=== PATIENT | female | born 1960 | race Caucasian/White ===

== ENCOUNTER → 2020-01-30 11:43 | Outpatient (POV) | payer OTHER, SELFPAY | PROVIDERS: PCP Physician Assistant; Visit Provider Physician Assistant | DX: Z00.00 Encounter for general adult medical examination without abnormal findings (principal) ==

== ENCOUNTER → 2020-03-26 15:58 | Outpatient (POV) | payer OTHER, SELFPAY | PROVIDERS: PCP Nurse Practitioner Family; Visit Provider Dermatology | DX: Z00.00 Encounter for general adult medical examination without abnormal findings (principal) ==

== ENCOUNTER 2020-07-31 11:41 | Observation (INO) | payer OTHER, SELFPAY ==
[2020-07-31] VITALS (9 sets, daily range): BP systolic 143–191; BP diastolic 73–108; PULSE 77–95; RESP 16–20; TEMP 36.4–36.6; O2SAT 93–100; BMI 26.5; BMI 25.7
--- NOTE | 2020-07-31 11:41 | ECG_ITS ---
APPROVED REPORT Exam: Resting ECG HR:95 bpm ECG Measurements Heart Rate 95 AXES MI 182 P 80 QRSd 92 QRS 82 QT 352 T 93 QTc 442 Conclusion Sinus rhythm with occasional premature ventricular complexes Incomplete right bundle branch block Borderline ECG Electronically signed by : Randall Tinsley, 08/05/2020 21:50:56
--- NOTE | 2020-07-31 11:53 | CT_ITS ---
PROCEDURE: CT HEAD/BRAIN WO CON CLINICAL INDICATION: AMS Altered mental status, altered level of consciousness, confusion, disorientation COMPARISON: No exams were available for comparison TECHNIQUE: Axial images obtained. All CT scans at the facility use one or more dose reduction, viz: automated exposure control, ma/kV adjustment per patient size (including targeted exams where dose is matched to indication, i.e. head), or iterative reconstruction technique. FINDINGS: No midline shift, mass effect, intracranial hemorrhage, hydrocephalus, or extra-axial fluid collection is evident. The calvarium has an unremarkable appearance. No mastoid effusion. No sinus air-fluid level. IMPRESSION: No acute intracranial finding Dictated by: Ricky Garcia MD 07/31/2020 12:24 Ricky Garcia MD in [facility] 07/31/2020 12:24
--- NOTE | 2020-07-31 11:53 | PC.NURSE ---
MD at bedside 1141, 12 lead also completed and read by MD at this time.
--- NOTE | 2020-07-31 11:53 | PC.NURSE ---
Radiology taking pt to CT
--- NOTE | 2020-07-31 11:53 | HMH.EDGENADL ---
ED Disposition Clinical Impression: Encephalopathy Accidental drug ingestion Qualifiers: Encounter type: initial encounter Qualified Code(s): T50.901A - Poisoning by unspecified drugs, medicaments and biological substances, accidental (unintentional), initial encounter Disposition: Admitted As Inpatient Condition on Discharge: Fair Referrals: Randall Henry MD [Primary Care Provider] - - Critical Care Critical Care Time: No Attestation: On 07/31/20, the high probability of a clinically significant, sudden or life threatening deterioration of the following system(s) required my full and direct attention, intervention and personal management. The time I documented below is in addition to time spent performing reported procedures but includes the following listed in this critical care notation. Medical Decision Making - Kyle Inquiry Pt receiving controlled substance: Yes Kyle was queried for this patient: No Reason not queried -: Emergent pt cond-no time Risks and benefits of using a controlled substance: were not discussed with pt by me Vital Signs: 07/31/20 11:42 07/31/20 12:12 07/31/20 12:30 Temperature 98 F Temperature Source Oral Pulse Rate [Left Radial] 94 H 92 H 78 Respiratory Rate 20 Blood Pressure [Right Arm] 152/74 H 191/97 H 173/96 H Blood Pressure Mean [Right Arm] 100 128 121 Blood Pressure Source [Right Arm] Automatic Cuff Automatic Cuff Automatic Cuff Blood Pressure Position [Right Arm] Sitting Sitting Sitting 02 Sat by Pulse Oximetry 99 100 95 Oxygen Delivery Method Room Air Room Air Room Air 07/31/20 13:00 Temperature Temperature Source Pulse Rate [Left Radial] 90 Respiratory Rate Blood Pressure [Right Arm] 188/92 H Blood Pressure Mean [Right Arm] 124 Blood Pressure Source [Right Arm] Automatic Cuff Blood Pressure Position [Right Arm] Sitting 02 Sat by Pulse Oximetry 100 Oxygen Delivery Method Room Air - Lab Data Lab Results 07/31/20 11:46: WBC 6.0, RBC 4.31, Hgb 13.6, Hct 42.0, MCV 97.4, MCH 31.6 H, MCHC 32.4, RDW 12.9, Plt Count 351, MPV 7.8, Neut % (Auto) 64.5, Lymph % (Auto) 30.6, [place] % (Auto) 3.6, Eos % (Auto) 0.7, Baso % (Auto) 0.6, Neut # (Auto) 3.8, Lymph # (Auto) 1.8, [place] # (Auto) 0.2, Eos # (Auto) 0.0, Baso # (Auto) 0.0 07/31/20 11:46: PT 11.9 H, INR 1.08 07/31/20 11:46: Sodium 135 L, Potassium 3.4 L, Chloride 102, Carbon Dioxide 23, Anion Gap 13.4, BUN 24 H, Creatinine 0.80, Estimated Creat Clear 63, Estimated GFR 73, Est GFR ( Amer) 88, Glucose 234 H, Calcium 9.4, Total Bilirubin 0.3, AST 32, ALT 19, Alkaline Phosphatase 60, Total Creatine Kinase 203 H, Troponin I < 0.01, Total Protein 7.2, Albumin 4.5, Globulin 2.7, Albumin/Globulin Ratio 1.7, TSH 0.10 L 07/31/20 11:48: Urine Color Yellow, Urine Appearance Clear, Urine pH 5.5, Ur Specific [place] 1.025, Urine Protein Negative, Urine Glucose (UA) Negative, Urine Ketones Trace, Urine Blood Negative, Urine Nitrate Negative, Urine Bilirubin Negative, Urine Urobilinogen 0.2, Ur Leukocyte Esterase Negative, Urine RBC Occasional, Urine WBC Occasional, Ur Squamous Epith Cells Occasional 07/31/20 11:48: Urine Opiates Screen Negative, Urine Methadone Screen Negative, Ur Barbituates Screen Negative, Ur Phencyclidine Scrn Negative, Ur Amphetamines Screen Negative, U Benzodiazepines Scrn Negative, Urine Cocaine Screen Negative, U Marijuana (THC) Screen Positive H Result diagrams: 07/31/20 11:46 07/31/20 11:46 Orders (Tests/Meds): ED MEDICATIONS Generic Name Dose Route Start Last Admin Trade Name Freq PRN Reason Stop Dose Admin Lorazepam 2 mg 07/31/20 13:20 Lorazepam 2mg/Ml Vial IV 08/30/20 13:19 ONCE PRN Seizures Ondansetron HCl 4 mg 07/31/20 13:21 Ondansetron 4mg/2ml Vial IV 08/30/20 13:20 Q4HP PRN Nausea And Vomiting Sodium Chloride 10 ml 07/31/20 13:20 Sodium Chloride 0.9% 10ml Vial IV 08/30/20 13:19 NEEDED PRN to Dilute Lorazepam inj Discontinued Me
--- NOTE | 2020-07-31 12:06 | PC.NURSE ---
Radiology called down and asked for a nurse to come up to radiology with report pt is shaking and vomiting
--- NOTE | 2020-07-31 12:22 | PC.NURSE ---
pt back from radiology
[2020-07-31 12:23] LABS: Chloride 102 mmol/L (98-107); Potassium 3.4 mmoL/L (3.5-5.1); Sodium 135 mmol/L (136-145)
[2020-07-31 12:24] LABS: Basophils % 0.6 % (0.1-2.0); Eosinophils % 0.7 % (0.1-12.0); Hemoglobin 13.6 g/dL (12.2-16.2); Lymphocytes # 1.8 K/mm3 (0.7-4.5); Lymphocytes % 30.6 % (10-50); Mean Corpuscular HGB Conc 32.4 g/dL (31.8-35.4); Mean Corpuscular Hemoglobin 31.6 pg (27.0-31.2); Mean Corpuscular Volume 97.4 fl (81-99); Mean Platelet Volume 7.8 fl (7.4-10.4); Monocytes # 0.2 K/mm3 (0.1-1.0); Monocytes % 3.6 % (1.7-9.3); Neutrophils # 3.8 K/mm3 (1.8-7.8); Neutrophils % 64.5 % (37.0-80.0); Platelet Count 351 K/mm3 (142-424); Red Blood Count 4.31 M/mm3 (4.20-5.40); Red Cell Distribution Width 12.9 % (11.5-17.5)
[2020-07-31 12:26] LABS: Microscopic, Urine URINE MICROSCOPIC (MICROSCOPIC)
[2020-07-31 12:26] LABS: Alanine Aminotransferase 19 U/L (12-78); Albumin Level 4.5 g/dl (3.5-5.0); Albumin/Globulin Ratio 1.7 (1.1-1.8); Alkaline Phosphatase 60 U/L (38-126); Anion Gap 13.4 mEq/L (5-15); Aspartate Amino Transferase 32 U/L (14-36); Bilirubin,Total 0.3 mg/dl (0.2-1.3); Blood Urea Nitrogen 24 mg/dl (7-17); Calcium 9.4 mg/dl (8.4-10.2); Carbon Dioxide 23 mmol/L (22.0-30.0); Creatine Kinase 203 U/L (30-135); Creatinine Clearance Estimated 63 mL/min (50-200); Estimated Glomerular Filt Rate 73 ml/min (>60); GFR (African American) 88 ML/MIN (>60); Globulin 2.7 g/dL (1.3-3.2); Glucose 234 mg/dl (74-100); Total Protein,Serum 7.2 g/dl (6.3-8.2)
[2020-07-31 12:36] LABS: Appearance,Urine CLEAR (Clear); Bilirubin,Urine Negative (Negative); Blood, Urine Negative (Negative); Color,Urine YELLOW (Yellow); Glucose,Urine (UA) Negative (Negative); Ketones,Urine TRACE (Negative); Leukocyte Esterase,Urine Negative (Negative); Nitrate,Urine Negative (Negative); PH,Urine 5.5 (5.0-8.5); Protein,Urine Negative (Negative); Specific Gravity, Urine 1.025 (1.005-1.030); Urobilinogen,Urine 0.2 EU/dl (0.2)
[2020-07-31 12:42] LABS: Troponin I < 0.01 ng/ml (0.00-0.034)
[2020-07-31 12:43] LABS: INR 1.08 (0.9-1.1); Prothrombin Time 11.9 seconds (9.4-11.8)
[2020-07-31 12:48] LABS: Barbiturates Screen,Urine Negative ng/ml (<200)
[2020-07-31 12:49] LABS: Amphetamine/Metha Screen,Urine Negative ng/ml (<1000); Benzodiazepines Screen,Urine Negative ng/ml (<200)
[2020-07-31 12:50] LABS: Cannabinoid Screen,Urine Positive ng/ml (<50); Cocaine Screen,Urine Negative ng/ml (<300)
[2020-07-31 12:51] LABS: Methadone Screen,Urine Negative ng/ml (<300)
[2020-07-31 12:52] LABS: Opiate Screen,Urine Negative ng/ml (<300); Phencyclidine Screen,Urine Negative ng/ml (<25)
[2020-07-31 12:58] LABS: RBC,Urine Occasional #/hpf (0-3); Squamous Epithelial Cell,Urine Occasional #/hpf (0-5); WBC,Urine Occasional #/hpf (0-3)
--- NOTE | 2020-07-31 13:35 | PC.NURSE ---
notified lab of new orders on pt
--- NOTE | 2020-07-31 14:31 | P.CONPHA_ITS ---
[facility] Pharmacy VTE Monitoring - Patient Demographics Admission date: 07/31/20 Report Date: 07/31/20 Time: 14:31 Allergies/Adverse Reactions: Patient Allergies No Known Allergies Allergy (Unverified 08/31/17 14:23) Height: 1.6 m Weight: 68.039 kg Patient Problems: Current Active Problems Encephalopathy (Acute) Accidental drug ingestion (Acute) - VTE Risk Labs: VTE Related Lab Results Hgb 13.6 g/dL (12.2-16.2) 07/31/20 11:46 Hct 42.0 % (37.0-47.0) 07/31/20 11:46 Plt Count 351 K/mm3 (142-424) 07/31/20 11:46 PT 11.9 seconds (9.4-11.8) H 07/31/20 11:46 INR 1.08 (0.9-1.1) 07/31/20 11:46 BUN 24 mg/dl (7-17) H 07/31/20 11:46 Creatinine 0.80 mg/dl (0.52-1.04) 07/31/20 11:46 Estimated Creat Clear 63 mL/min (50-200) 07/31/20 11:46 - Prophylaxis VTE Prophylaxis Ordered?: Yes Types of VTE Prophylaxis: TEDS Knee High Location of Applied Device: Bilateral Lower Extremeties
--- NOTE | 2020-07-31 14:33 | PC.NURSE ---
Naveed from lab called to confirm orders for Ativan. MD request the order be PRN once for if the patient has a seizure. Can be called and reordered if needed.
[2020-07-31 14:48] LABS: Coronavirus 19 IgG Antibody Negative (Negative); Coronavirus 19 IgM Antibody Negative (Negative)
--- NOTE | 2020-07-31 16:29 | HMH.HP ---
*Admission Date: 07/31/20 *Chief complaint: Altered mental status *History of present illness: 60-year-old female brought to the emergency department after multiple witnessed seizures prior to arrival. History is taken from the patient's daughter as well as the patient now that she is coherent. Patient's daughter reports she was contacted through her mother's cell phone to come to her mother's place of employment ([employer]) as her mother was not acting herself. It was revealed to the daughter that her mother had ingested a home baked good that was believed to have an illicit substance baked within it. Within 30 minutes of ingesting the home baked good patient's mother became disoriented with increased anxiety and agitation. The patient's daughter originally planned to take her mother home and simply watch her. Patient's agitation and restlessness increased. Patient was drinking excessively and reported a ravenous appetite. Patient had a brief less than 2-minute seizure witnessed by her daughter. They had stopped at a local gas station which is near the local ambulance service. After the first seizure she was taken to the ambulance service and had 2 additional brief seizures and was transported to the ER. Patient did receive lorazepam in route to the hospital. Once patient arrived in the hospital she continued to be restless and agitated as well as disoriented. She was given additional Haldol as well as Zofran after onset of vomiting. Patient was admitted for observation. The patient herself confirms the story about ingestion of the home baked good. She recalls going to work. She does not recall many of the events that occurred since the toxic ingestion. At the time of interview she is oriented to person, place, time. [facility] History I have reviewed the patient's past medical history: Yes *Have you ever received a pneumonia vaccine?: No *Have you received a flu vaccine this season?: No Other Surgeries: Yes: Tubal Ligation - *Social History Last grade of school completed: High school graduate Smoking Status: Never smoker Alcohol Intake: never Substance Use Type: unknown *Occupational Status:: employed Housing: house Household Members: significant other *Travel in the last 8 weeks: None Family Hx:: Unable to obtain Review of Systems - Review of Systems Review of systems:: pertinent systems reviewed and negative unless documented below Meds Home Medications Medication Instructions Recorded Confirmed Type Biotin 5,000 mcg PO DAILY 07/31/20 07/31/20 History Allergies Allergy/AdvReac Type Severity Reaction Status Date / Time No Known Allergies Allergy Unverified 08/31/17 14:23 Exam Vital signs and Labs for Last 24 Hours: Temp Pulse Resp BP Pulse Ox 98 F 77 16 155/84 H 98 07/31/20 15:05 07/31/20 15:05 07/31/20 15:05 07/31/20 15:05 07/31/20 14:00 Laboratory Results - last 24 hr 07/31/20 11:46: WBC 6.0, RBC 4.31, Hgb 13.6, Hct 42.0, MCV 97.4, MCH 31.6 H, MCHC 32.4, RDW 12.9, Plt Count 351, MPV 7.8, Neut % (Auto) 64.5, Lymph % (Auto) 30.6, [place] % (Auto) 3.6, Eos % (Auto) 0.7, Baso % (Auto) 0.6, Neut # (Auto) 3.8, Lymph # (Auto) 1.8, [place] # (Auto) 0.2, Eos # (Auto) 0.0, Baso # (Auto) 0.0 07/31/20 11:46: PT 11.9 H, INR 1.08 07/31/20 11:46: Sodium 135 L, Potassium 3.4 L, Chloride 102, Carbon Dioxide 23, Anion Gap 13.4, BUN 24 H, Creatinine 0.80, Estimated Creat Clear 63, Estimated GFR 73, Est GFR ( Amer) 88, Glucose 234 H, Calcium 9.4, Total Bilirubin 0.3, AST 32, ALT 19, Alkaline Phosphatase 60, Total Creatine Kinase 203 H, Troponin I < 0.01, Total Protein 7.2, Albumin 4.5, Globulin 2.7, Albumin/Globulin Ratio 1.7, TSH 0.10 L 07/31/20 11:46: SARS-CoV-2 IgG Ab (Rapid) Negative, SARS-CoV-2 IgM Ab (Rapid) Negative 07/31/20 11:48: Urine Color Yellow, Urine Appearance Clear, Urine pH 5.5, Ur Specific [place] 1.025, Urine Protein Negative, Urine Glucose (UA) Negative, Urine Ketones Trace, Urine Blood Negative,
--- NOTE | 2020-07-31 16:52 | PC.NURSE ---
Patient received from er. Bed alarm in place. Neurologically she is very drowsy. She is oriented x 4 and pleasant. Just states that she is exhausted. Pupils are reactive and responsive. Hand Shaper are strong and equal. GI: No v/d currently. States that nausea comes in waves, but currently does not have any. No appetite. : Mathis in place, per mathis catheter can be removed when patient is more alert and wants it removed. Urine is clear and yellow. Skin is intact. No bruising or abrasions. Cardiac: Patients blood pressure and heart rate are within normal range. Respiratory: Patients lungs are clear. Room air. Oxygen saturations in upper 90's. IV is an 20g to right ac, ns at 100 ordered, dressing c/d/i Special notes: is aware of patients blood glucose levels being elevated. Stated that he does not wish to make any changes or address the hyperglycemia at this time. Will check again with the morning labs and make any necessary changes at that time.
[2020-08-01 03:58] VITALS: BP 143/80; PULSE 92; RESP 14; TEMP 36.4; O2SAT 98
--- NOTE | 2020-08-01 04:17 | PC.NURSE ---
Pt. a&ox4. No seizure activity. No c/o pain, n/v/d, dizziness or soa. Pt. states I just feel tired . Pt. wanted fc to stay t/o the night d/t weakness; draining bright yellow urine. No needs at this time; family at bedside.
[2020-08-01 05:00] VITALS: BMI 26.0
[2020-08-01 07:05] LABS: Basophils % 0.1 % (0.1-2.0); Eosinophils % 0.3 % (0.1-12.0); Hematocrit 39.2 % (37.0-47.0); Lymphocytes # 1.1 K/mm3 (0.7-4.5); Lymphocytes % 12.5 % (10-50); Mean Corpuscular HGB Conc 33.1 g/dL (31.8-35.4); Mean Corpuscular Hemoglobin 32.4 pg (27.0-31.2); Mean Platelet Volume 7.9 fl (7.4-10.4); Monocytes # 0.4 K/mm3 (0.1-1.0); Monocytes % 4.8 % (1.7-9.3); Neutrophils # 6.9 K/mm3 (1.8-7.8); Neutrophils % 82.4 % (37.0-80.0); Platelet Count 285 K/mm3 (142-424); Red Cell Distribution Width 12.7 % (11.5-17.5); White Blood Count 8.4 K/mm3 (4.8-10.8)
[2020-08-01 07:13] LABS: Chloride 108 mmol/L (98-107); Potassium 3.9 mmoL/L (3.5-5.1); Sodium 139 mmol/L (136-145)
[2020-08-01 07:16] LABS: Anion Gap 8.9 mEq/L (5-15); Blood Urea Nitrogen 11 mg/dl (7-17); Carbon Dioxide 26 mmol/L (22.0-30.0); Creatinine Clearance Estimated 61 mL/min (50-200); Estimated Glomerular Filt Rate 85 ml/min (>60); GFR (African American) 103 ML/MIN (>60); Glucose 92 mg/dl (74-100)
[2020-08-01 07:59] VITALS: BP 139/76; PULSE 85; RESP 18; TEMP 36.8; O2SAT 98
--- NOTE | 2020-08-01 08:00 | HMH.DCSUM ---
General - General Admission date:: 07/31/20 Discharge date: 08/01/20 HPI HPI: 60-year-old female brought to the emergency department after multiple witnessed seizures prior to arrival. History is taken from the patient's daughter as well as the patient now that she is coherent. Patient's daughter reports she was contacted through her mother's cell phone to come to her mother's place of employment ([employer]) as her mother was not acting herself. It was revealed to the daughter that her mother had ingested a home baked good that was believed to have an illicit substance baked within it. Within 30 minutes of ingesting the home baked good patient's mother became disoriented with increased anxiety and agitation. The patient's daughter originally planned to take her mother home and simply watch her. Patient's agitation and restlessness increased. Patient was drinking excessively and reported a ravenous appetite. Patient had a brief less than 2-minute seizure witnessed by her daughter. They had stopped at a local gas station which is near the local ambulance service. After the first seizure she was taken to the ambulance service and had 2 additional brief seizures and was transported to the ER. Patient did receive lorazepam in route to the hospital. Once patient arrived in the hospital she continued to be restless and agitated as well as disoriented. She was given additional Haldol as well as Zofran after onset of vomiting. Patient was admitted for observation. The patient herself confirms the story about ingestion of the home baked good. She recalls going to work. She does not recall many of the events that occurred since the toxic ingestion. At the time of interview she is oriented to person, place, time. Hospital Course Hospital Course: Patient was admitted for observation. Within a few hours of admission patient's disorientation resolved. Agitation improved after administration of Ativan in the emergency department. Patient became lucid, alert, oriented to person place and time. Patient was observed overnight and had no further seizure activity. The following morning she was mentating well and other than feeling fatigued was back to her baseline. Patient was discharged home. She will follow-up in the office on an as-needed basis. She has been advised to avoid home baked goods brought in by coworkers in the future Objective Vital signs: Temp Pulse Resp BP Pulse Ox 98.3 F 85 18 139/76 98 08/01/20 07:59 08/01/20 07:59 08/01/20 07:59 08/01/20 07:59 08/01/20 07:59 no acute distress - *Routine HEENT Exam Head: Present: normocephalic Eye: Present: EOMI, PERRL ENT: Present: mucous membranes moist - *Routine Neck Exam Present: supple - *Routine Respiratory Exam Present: CTA bilaterally - *Routine Cardiovascular Exam Present: RRR - *Routine Abdominal Exam Present: soft, normoactive bowel sounds. Absent: tenderness - *Routine Extremities Exam Absent: cyanosis, clubbing, edema - *Routine Skin Exam Present: warm. Absent: rash - Detailed Eye Exam Eyelids: Bilateral normal inspection Results Labs on day of discharge: Labs from last 24 hours 08/01/20 08/01/20 07/31/20 05:08 05:08 11:48 WBC 8.4 D RBC 4.00 L Hgb 13.0 Hct 39.2 MCV 98.0 MCH 32.4 H MCHC 33.1 RDW 12.7 Plt Count 285 MPV 7.9 Neut % (Auto) 82.4 H Lymph % (Auto) 12.5 [place] % (Auto) 4.8 Eos % (Auto) 0.3 Baso % (Auto) 0.1 Neut # (Auto) 6.9 Lymph # (Auto) 1.1 [place] # (Auto) 0.4 Eos # (Auto) 0.0 Baso # (Auto) 0.0 PT INR Sodium 139 Potassium 3.9 Chloride 108 H Carbon Dioxide 26 Anion Gap 8.9 BUN 11 D Creatinine 0.70 Estimated Creat Clear 61 Estimated GFR 85 Est GFR ( Amer) 103 Glucose 92 D Calcium 9.0 Phosphorus 3.0 Magnesium 2.0 Total Bilirubin AST ALT Alkaline Phosphatase
--- NOTE | 2020-08-01 10:33 | HMH.PHAINT ---
DISCUSSED HOME MEDICATION LIST WITH PATIENT. TAKES OCCASIONAL ALEVE AND TYLENOL. TAKES DAILY BIOTIN SUPPLEMENT.
--- NOTE | 2020-08-01 10:53 | PC.NURSE ---
THIS RN INFROMED PATIENT THAT SHE WOULD BE D/C ONCE SHE URINATES AFTER RINCON REMOVAL. PATIENT VERBALIZED AN UNDERSTANDING. PATIENT ABLE TO URINATE AT 1010. THIS RN PROVIDED D/C INSTRUCTIONS. PATIENT VERBALIZED AN UNDERSTANDING. THIS RN ENCOURAGED PATIENT TO RISE SLOWLY WHEN GETTING UP. NO OTHER CONCERNS AT THIS TIME.
== END 2020-08-01 10:50 | disposition home or self-care (01) ==
LOC: ER 13:27 → 2ND 15:25
PROVIDERS: Admitting Provider Family Medicine; Emergency Provider Family Medicine; PCP Family Medicine; Visit Provider Family Medicine
DX: T40.7X1A Poisoning by cannabis (derivatives), accidental (unintentional), initial encounter (principal); F12.921 Cannabis use, unspecified with intoxication delirium; G93.40 Encephalopathy, unspecified
CPT/HCPCS: 70450; 80048; 80053; 80305; 81001; 82550; 83735; 84100; 84443; 84484; 85025; 85610; 86328; 93005; 96365; 96375; 96376; 99284; G0378; J2405

== ENCOUNTER 2021-04-23 15:51 | Emergency (ER) | payer BC, SELFPAY ==
--- NOTE | 2021-04-23 15:51 | ECG_ITS ---
APPROVED REPORT Exam: Resting ECG HR:68 bpm ECG Measurements Heart Rate 68 AXES RI 164 P 51 QRSd 84 QRS 18 QT 358 T 68 QTc 380 Conclusion Normal sinus rhythm with sinus arrhythmia Normal ECG Electronically signed by : Randall Tinsley MD 04/24/2021 22:29:24
[2021-04-23 15:58] VITALS: BMI 25.1
[2021-04-23 15:59] VITALS: BP 186/88; PULSE 77; RESP 18; TEMP 36.7; O2SAT 98; BMI 25.1
--- NOTE | 2021-04-23 16:10 | XR_ITS ---
PROCEDURE: XR CHEST PORTABLE CLINICAL HISTORY: chest pain COMPARISON: CR CXR CHEST(2 VIEWS-NOT PORTABLE) from 04/04/2017 FINDINGS: The cardiomediastinal silhouette and pulmonary vascularity are within normal limits. The lungs are clear without infiltrates, suspicious nodules, or pleural effusions. No acute bony abnormalities. IMPRESSION: No acute findings. Dictated by: Ricky Garcia MD 04/23/2021 16:42 Ricky Garcia MD in [facility] 04/23/2021 16:42
--- NOTE | 2021-04-23 16:11 | HMH.EDCP ---
ED Disposition Clinical Impression: Chest wall pain Disposition: Home, Self-Care Condition on Discharge: Good Additional Instructions: Use Tylenol as needed for pain. Follow-up with primary care physician. See your primary care physician in 2 days. Return to the emergency room for any new symptoms or worsening of symptoms. It is recommended to have stress test safe chest pain returns. Referrals: Adriana Cope APRN [Primary Care Provider] - - Critical Care Critical Care Time: No Attestation: On 04/23/21, the high probability of a clinically significant, sudden or life threatening deterioration of the following system(s) required my full and direct attention, intervention and personal management. The time I documented below is in addition to time spent performing reported procedures but includes the following listed in this critical care notation. Medical Decision Making - Medical Records MR Comment: EKG shows normal sinus rhythm. She has left chest wall tenderness on palpation. Troponin was negative and it was repeated after 2 hours was negative. Chest pain in the left shoulder is exacerbated with movement and has been going on for 3 days. She is recommended to use Tylenol for pain. Follow-up with a primary care physician. - Kyle Inquiry Pt receiving controlled substance: No Kyle was queried for this patient: No Vital Signs: 04/23/21 15:59 04/23/21 16:15 04/23/21 16:46 Temperature 98.1 F Temperature Source Oral Pulse Rate 62 67 Pulse Rate [Right] 77 Respiratory Rate 18 18 18 Blood Pressure 160/86 H 152/83 H Blood Pressure [Right Arm] 186/88 H Blood Pressure Mean [Right Arm] 120 Blood Pressure Source Automatic Cuff Automatic Cuff Blood Pressure Position Sitting Sitting 02 Sat by Pulse Oximetry 98 96 97 Oxygen Delivery Method Room Air Room Air Room Air - Lab Data Lab Results 04/23/21 16:05: WBC 5.3, RBC 4.28, Hgb 13.0, Hct 39.6, MCV 92.4, MCH 30.4, MCHC 32.9, RDW 13.1, Plt Count 287, MPV 8.6, Neut % (Auto) 47.7, Lymph % (Auto) 39.1, [place] % (Auto) 8.3, Eos % (Auto) 4.2, Baso % (Auto) 0.7, Neut # (Auto) 2.5, Lymph # (Auto) 2.1, [place] # (Auto) 0.4, Eos # (Auto) 0.2, Baso # (Auto) 0.0 04/23/21 16:05: Sodium 142, Potassium 4.4, Chloride 105, Carbon Dioxide 28, Anion Gap 13.4, BUN 21 H, Creatinine 0.80, Estimated Creat Clear 59, Estimated GFR 72, Est GFR ( Amer) 88, Glucose 106 H, Calcium 9.6, Troponin I < 0.01 04/23/21 18:00: Troponin I < 0.01 Result diagrams: 04/23/21 16:05 04/23/21 16:05 Orders (Tests/Meds): ED MEDICATIONS Discontinued Medications Generic Name Dose Route Start Last Admin Trade Name Freq PRN Reason Stop Dose Admin Aspirin 324 mg 04/23/21 15:59 04/23/21 16:15 Aspirin 81mg Chewable Tablet PO 04/23/21 16:00 324 mg ONCE ONE Administration ORDERS Category Date Time Status Troponin I Q3H Lab 04/23/21 22:15 Ordered Chest Pain HPI - General Chief Complaint: Chest Pain Stated Complaint: chest pain Time Seen by Provider: 04/23/21 16:11 Mode of Arrival: Family Vehicle Limitations: No Limitations Description of Symptoms (Recalled from ER Triage Doc. by RN): Patient c/o CP for the last two days as well as left shoudler pain. Patient denies any recent injury and denies any cardiac history. Patient denies SOA in ED triage and denies N/V. - History of Present Illness HPI narrative: Patient is 61-year-old female with no past medical history complaining of left shoulder and left sided chest pain for the past 3 days. No nausea or vomiting or diaphoresis. She has no hypertension or diabetes and she is not a smoker. She had this problem before and she was diagnosed with shoulder muscle pain. She looks comfortable with no distress. There is no chest pain with exertion. Onset (ago): day(s) (3 days) Duration: intermittent Activity at onset: during rest Pain location: other (left shoulder) Severity: mild Severity scale (1-10): 2 Qualit
[2021-04-23 16:15] VITALS: BP 160/86; PULSE 62; RESP 18; O2SAT 96
[2021-04-23 16:20] LABS: Chloride 105 mmol/L (98-107); Potassium 4.4 mmoL/L (3.5-5.1); Sodium 142 mmol/L (136-145)
[2021-04-23 16:22] LABS: Basophils % 0.7 % (0.1-2.0); Eosinophils # 0.2 K/mm3 (0.0-0.4); Eosinophils % 4.2 % (0.1-12.0); Hematocrit 39.6 % (37.0-47.0); Lymphocytes # 2.1 K/mm3 (0.7-4.5); Lymphocytes % 39.1 % (10-50); Mean Corpuscular HGB Conc 32.9 g/dL (31.8-35.4); Mean Corpuscular Hemoglobin 30.4 pg (27.0-31.2); Mean Corpuscular Volume 92.4 fl (81-99); Mean Platelet Volume 8.6 fl (7.4-10.4); Monocytes # 0.4 K/mm3 (0.1-1.0); Monocytes % 8.3 % (1.7-9.3); Neutrophils # 2.5 K/mm3 (1.8-7.8); Neutrophils % 47.7 % (37.0-80.0); Platelet Count 287 K/mm3 (142-424); Red Blood Count 4.28 M/mm3 (4.20-5.40); Red Cell Distribution Width 13.1 % (11.5-17.5); White Blood Count 5.3 K/mm3 (4.8-10.8)
[2021-04-23 16:23] LABS: Blood Urea Nitrogen 21 mg/dl (7-17); Creatinine Clearance Estimated 59 mL/min (50-200); Estimated Glomerular Filt Rate 72 ml/min (>60); GFR (African American) 88 ML/MIN (>60)
[2021-04-23 16:24] LABS: Anion Gap 13.4 mEq/L (5-15); Calcium 9.6 mg/dl (8.4-10.2); Carbon Dioxide 28 mmol/L (22.0-30.0); Glucose 106 mg/dl (74-100)
[2021-04-23 16:46] VITALS: BP 152/83; PULSE 67; RESP 18; O2SAT 97
[2021-04-23 16:46] LABS: Troponin I < 0.01 ng/ml (0.00-0.034)
[2021-04-23 18:34] LABS: Troponin I < 0.01 ng/ml (0.00-0.034)
[2021-04-23 19:36] VITALS: BP 125/70; PULSE 75; RESP 18; TEMP 36.7; O2SAT 99
== END 2021-04-23 19:40 | disposition home or self-care (01) ==
PROVIDERS: Emergency Provider Internal Medicine; PCP Nurse Practitioner Family
DX: R07.89 Other chest pain (principal)
CPT/HCPCS: 71045; 80048; 84484; 85025; 93005; 99283

== ENCOUNTER → 2023-01-27 07:43 | Outpatient (CLI) | payer BC, SELFPAY ==
--- NOTE | 2023-01-27 07:51 | MM_ITS ---
PROCEDURE INFORMATION: Exam: Bilateral Screening 3D Mammography Exam date and time: 01/27/2023 7:51 AM Age: 62 years old Clinical indication: Screening mammogram. TECHNIQUE: Imaging protocol: Bilateral Screening tomosynthesis and 2D mammography including computer-aided detection (CAD) when performed. COMPARISON: No relevant prior studies available. FINDINGS: MAMMOGRAPHY: Breast composition: There are scattered areas of fibroglandular density. Mass: 0.5 cm mass within the upper outer posterior right breast, about 9 cm from the nipple should be further assessed with spot views in CC/MLO projection. Ultrasound should also be performed. Architectural distortion: No new or suspicious architectural distortion. Calcifications: No new or suspicious calcifications are present Asymmetric density: No new or suspicious asymmetric density is present Skin thickening: None. Axillary adenopathy: None. IMPRESSION: 0.5 cm mass within the upper outer posterior right breast, about 9 cm from the nipple should be further assessed with spot views in CC/MLO projection. Ultrasound should also be performed. ASSESSMENT: BI-RADS category 0: Incomplete-need additional imaging evaluation
== END ==
PROVIDERS: PCP Nurse Practitioner Family; Visit Provider Obstetrics & Gynecology
DX: Z12.31 Encounter for screening mammogram for malignant neoplasm of breast (principal)
CPT/HCPCS: 77063; 77067

== ENCOUNTER → 2023-02-17 14:32 | Outpatient (CLI) | payer BC, SELFPAY ==
--- NOTE | 2023-02-17 14:32 | US_ITS ---
PROCEDURE INFORMATION: Exam: US Right Breast, Complete MG Right Diagnostic Breast Tomosynthesis Exam date and time: 02/17/2023 3:05 PM Age: 62 years old Clinical indication: Patient recalled on the basis of a screening mammogram for further evaluation; Right breast; mass TECHNIQUE: Imaging protocol: Complete ultrasound of all four quadrants of the right breast and the retroareolar regions, including ultrasound of the axilla when performed. Right Diagnostic tomosynthesis and 2D mammography including computer-aided detection (CAD) when performed. Unilateral or bilateral exam. COMPARISON: MG MM DIG MAMM DX UNILAT RT CAD 02/17/2023 2:29 PM FINDINGS: MAMMOGRAPHY: Digital diagnostic spot compression views of the posterior right upper outer quadrant demonstrates a persistent 0.5 cm well-circumscribed mass without associated architectural distortion ULTRASOUND: Sonographic images of the right breast demonstrate few scattered subcentimeter cysts including a 0.3 cm cyst in the deep 10 o'clock axis 7 cm from the nipple most closely corresponding to the mass on mammography. No solid masses. No architectural distortion or acoustical shadowing. No retroareolar masses. No axillary adenopathy. IMPRESSION: Mass on screening mammography corresponds to underlying cystic change sonographically. There is no mammographic evidence of malignancy.Annual bilateral mammographic screening is recommended unless otherwise clinically indicated. ASSESSMENT: BI-RADS Category 2: Benign
== END ==
PROVIDERS: PCP Nurse Practitioner Family; Visit Provider Obstetrics & Gynecology
DX: R92.8 Other abnormal and inconclusive findings on diagnostic imaging of breast (principal); N63.11 Unspecified lump in the right breast, upper outer quadrant
CPT/HCPCS: 76641; 77061; 77065; G0279

== ENCOUNTER → 2023-05-26 14:07 | Outpatient (CLI) | payer BC, SELFPAY ==
--- NOTE | 2023-05-26 14:11 | US_ITS ---
PROCEDURE: US TRANSVAGINAL CLINICAL INDICATION: Postmenopausal bleeding, uterine prolapse. COMPARISON: No exams were available for comparison FINDINGS: Transvaginal sonographic images of the pelvis were obtained. UTERUS: 6.0 cm x 3.0 cmx 1.9 cm with a combined endometrial thickness of 4.7mm. Uterus is anteverted The uterus is prolapsed. Prominent uterine vascularity. LEFT OVARY: [id number] with a volume of 0.8ml.Appears atrophic. RIGHT OVARY: 2cmx [id number] with a volume of 1.7ml. Appears atrophic. Both ovaries are seen and appear normal. Doppler flow to both ovaries are seen. There is no fluid in the cul-de-sac. IMPRESSION: 1. Anteverted uterus normal in shape and size. Prominent vascularity. 2. The uterus is prolapsed per business technology architect. 3. The endometrium is 4.7 mm but appears prominent and irregular in appearance. 4. Given the postmenopausal bleeding, would suggest endometrial sampling. 5. Both ovaries are seen and appear atrophic. 6. No fluid in the cul-de-sac Dictated by: Nicolás Olmos MD 05/27/2023 10:04 Nicolás Olmos MD in OV 05/27/2023 10:04
== END ==
PROVIDERS: PCP Nurse Practitioner Family
DX: N95.0 Postmenopausal bleeding (principal)
CPT/HCPCS: 76830

== ENCOUNTER 2024-04-05 08:49 | Outpatient (CLI) | payer BC, SELFPAY ==
[2024-04-05 09:19] LABS: Basophils # 0.1 K/mm3 (0-0.2); Eosinophils # 0.1 K/mm3 (0.0-0.4); Eosinophils % 1.2 % (0.1-12.0); Hematocrit 43.4 % (37.0-47.0); Hemoglobin 14.1 g/dL (12.2-16.2); Lymphocytes # 1.2 K/mm3 (0.7-4.5); Lymphocytes % 22.2 % (10-50); Mean Corpuscular HGB Conc 32.6 g/dL (31.8-35.4); Mean Corpuscular Hemoglobin 31.4 pg (27.0-31.2); Mean Corpuscular Volume 96.3 fl (81-99); Mean Platelet Volume 8.3 fl (7.4-10.4); Monocytes # 0.3 K/mm3 (0.1-1.0); Monocytes % 6.1 % (1.7-9.3); Neutrophils # 3.8 K/mm3 (1.8-7.8); Neutrophils % 69.5 % (37.0-80.0); Platelet Count 299 K/mm3 (142-424); White Blood Count 5.5 K/mm3 (4.8-10.8)
[2024-04-05 10:29] LABS: 25-OH Vitamin D, Total 77.4 ng/mL (30-100)
[2024-04-05 10:51] LABS: Iron 122 ug/dL (37-170)
[2024-04-05 11:01] LABS: Total Iron Binding Capacity 271 ug/dL (265-497)
[2024-04-05 11:27] LABS: Ferritin 49.4 ng/ml (11.1-264)
[2024-04-05 12:31] LABS: Vitamin B12 > 1000 pg/mL (239-931)
[2024-04-06 22:15] LABS: Zinc 77 ug/dL (44-115)
== END 2024-04-05 23:59 | disposition home or self-care (01) ==
LOC: LAB 08:50
PROVIDERS: PCP Nurse Practitioner; Visit Provider Family Medicine
DX: K14.6 Glossodynia (principal)
CPT/HCPCS: 36415; 82306; 82607; 82728; 82746; 83540; 83550; 84630; 85025

== ENCOUNTER 2024-06-02 16:04 | Outpatient (CLI) | payer BC, SELFPAY ==
--- NOTE | 2024-06-02 16:10 | XR_ITS ---
FINAL REPORT CLINICAL HISTORY: LEG PAIN ANTERIOR COMPARISON: None FINDINGS: RIGHT TIBIA FIBULA There is no acute fracture or dislocation. The joint spaces are intact. There is no soft tissue abnormality. IMPRESSION: No acute fracture Reviewed, Interpreted and Dictated by Wil Reed MD Transcribed by Edith Esteves Authenticated and [facility]
== END 2024-06-02 23:59 | disposition home or self-care (01) ==
LOC: RAD 16:06
PROVIDERS: PCP Family Medicine; Visit Provider Nurse Practitioner
DX: M79.604 Pain in right leg (principal)
CPT/HCPCS: 73590

== ENCOUNTER 2024-06-07 07:41 | Outpatient (CLI) | payer BC, SELFPAY ==
--- NOTE | 2024-06-07 | CA_ITS ---
FINAL REPORT TECHNIQUE: Arterial duplex Doppler evaluation of the right lower extremity with spectral analysis. CLINICAL HISTORY: Right leg pain nonsmoker FINDINGS: Right lower extremity, flow velocities (cm per second): Common femoral artery: 118.2 Proximal SFA: 86.0 Distal SFA: 66.8 Anterior tibial artery: 64.74 Posterior tibial artery: 58.8 CHELSEA: 1.05 IMPRESSION: Waveforms are noted to be triphasic. No levels of stenosis or occlusion are identified. Reviewed, Interpreted and Dictated by Gagan Gonzalez MD Transcribed by Meghan Jain Authenticated and [facility]
== END 2024-06-07 23:59 | disposition home or self-care (01) ==
LOC: RT 07:42
PROVIDERS: PCP Nurse Practitioner; Visit Provider Nurse Practitioner
DX: M79.604 Pain in right leg (principal)
CPT/HCPCS: 93926

== ENCOUNTER 2024-06-21 11:25 | Outpatient (CLI) | payer BC, SELFPAY ==
--- NOTE | 2024-06-21 11:35 | XR_ITS ---
FINAL REPORT CLINICAL HISTORY: LOWER BACK PAIN COMPARISON: None FINDINGS: 5 views of the lumbar spine were obtained. There is no evidence of fracture or dislocation. There is mild left curvature of the lumbar spine. Mild to moderate degenerative change is present, with multilevel facet arthropathy. No paraspinous soft tissue abnormalities identified. IMPRESSION: Mild to moderate degenerative change as described, without acute bony abnormality identified. Reviewed, Interpreted and Dictated by James Guajardo III, MD Transcribed by Edith Esteves Authenticated and [facility]
--- NOTE | 2024-06-21 11:36 | XR_ITS ---
FINAL REPORT CLINICAL HISTORY: LEFT HIP PAIN COMPARISON: None FINDINGS: LEFT HIP: Two views of the left hip demonstrate no acute fracture or dislocation. Mild degenerative change is present. There is a sclerotic focus in the intertrochanteric region of the hip, that may represent a bone island. The visualized bony structures are well aligned. No soft tissue abnormality is seen. IMPRESSION: Mild degenerative change without acute bony abnormality. Probable bone island in the intertrochanteric region of the left hip. Reviewed, Interpreted and Dictated by James Guajardo III, MD Transcribed by Edith Esteves Authenticated and . [facility]
--- NOTE | 2024-06-21 11:36 | XR_ITS ---
FINAL REPORT CLINICAL HISTORY: HIP PAIN COMPARISON: None FINDINGS: RIGHT HIP Two views of the right hip demonstrate no acute fracture or dislocation. Mild degenerative change is present. The visualized bony structures are well aligned. No soft tissue abnormality is seen. IMPRESSION: Mild degenerative change, with no acute bony abnormality. Reviewed, Interpreted and Dictated by James Guajardo III, MD Transcribed by Edith Esteves Authenticated and [facility]
== END 2024-06-21 23:59 | disposition home or self-care (01) ==
PROVIDERS: PCP Nurse Practitioner; Visit Provider Nurse Practitioner
DX: M54.50 Low back pain, unspecified (principal); M25.551 Pain in right hip; M25.552 Pain in left hip
CPT/HCPCS: 72110; 73502

== ENCOUNTER 2024-07-20 06:37 | Outpatient (CLI) | payer BC, SELFPAY ==
--- NOTE | 2024-07-20 06:40 | MR_ITS ---
FINAL REPORT CLINICAL HISTORY: BACK PAIN. RIGHT HIP AND LEG PAIN. SWELLING IN RIGHT LEG FINDINGS: Multiplanar MR imaging of the lumbar spine was performed without contrast. On the sagittal T2-weighted images, disc degeneration is seen throughout with endplate changes at L5-S1. There is mild anterolisthesis of L4 on 5. No bony mass is identified. There is no evidence of fracture. The conus has an unremarkable appearance. There are several cysts in the upper sacral spinal canal. T11-12: There is no significant canal stenosis or neuroforaminal narrowing. T12-L1: There is no significant canal stenosis or neuroforaminal narrowing. L1-2: An annular disc bulges present. Facet arthropathy and osteophytes are present. There is mild bilateral neuroforaminal narrowing. L2-3: An annular disc bulges present. Facet arthropathy and osteophytes are present. There is a small left foraminal disc protrusion with mild left neuroforaminal narrowing. L3-4: An annular disc bulge and facet arthropathy are present. There is mild right neuroforaminal narrowing. There is mild right neuroforaminal narrowing. L4-5: An annular disc bulge and facet arthropathy are present. There is mild bilateral neuroforaminal narrowing. L5-S1: An annular disc bulges present. Facet arthropathy and osteophytes are present. There is mild bilateral neuroforaminal narrowing. IMPRESSION: Multilevel degenerative disc disease and spondylosis. Reviewed, Interpreted and Dictated by James Guajardo III, MD Transcribed by Michelle Ontiveros Authenticated and . [facility]
== END 2024-07-20 23:59 | disposition home or self-care (01) ==
LOC: RAD 06:37
PROVIDERS: PCP Nurse Practitioner; Visit Provider Nurse Practitioner
DX: M54.30 Sciatica, unspecified side (principal); I89.0 Lymphedema, not elsewhere classified; R20.2 Paresthesia of skin
CPT/HCPCS: 72148

== ENCOUNTER 2024-08-01 15:00 | Outpatient (RCR) | payer BC, SELFPAY | END 2024-08-01 23:59 | disposition home or self-care (01) | LOC: PT 15:00 | PROVIDERS: Visit Provider Nurse Practitioner | DX: M54.50 Low back pain, unspecified (principal); M25.552 Pain in left hip | CPT/HCPCS: 97012; 97014; 97110; 97140; 97163; G0283 ==

== ENCOUNTER 2024-08-01 15:00 | Outpatient (RCR) | payer BC, SELFPAY | END 2024-08-01 23:59 | disposition home or self-care (01) | LOC: PT 15:00 | PROVIDERS: Visit Provider Nurse Practitioner | DX: I89.0 Lymphedema, not elsewhere classified (principal) | CPT/HCPCS: 97163 ==

== ENCOUNTER 2024-08-04 08:31 | Outpatient (CLI) | payer BC, SELFPAY ==
--- NOTE | 2024-08-04 | US_ITS ---
FINAL REPORT CLINICAL HISTORY: EDEMA,CLAUDICATION AND REST PAIN RLE COMPARISON: None FINDINGS: ANKLE-BRACHIAL PRESSURE INDICES Pressure indices are as follows: RIGHT LOWER EXTREMITY: Ankle-brachial pressure index: 1.22 Comments: Normal LEFT LOWER EXTREMITY: Ankle-brachial pressure index: 1.13 Comments: Normal IMPRESSION: No evidence of significant obstructive peripheral vascular disease of the lower extremities Reviewed, Interpreted and Dictated by Wil Reed MD Transcribed by Sandee Chopra Authenticated and [facility]
--- OUTSIDE RECORDS SUMMARY | 2024-08-04 08:34 | XMS_ITS | Clinical Summary ---
[facility] Address [address] [place] [address] Care Team Providers Care Set Painter Name Role Phone Pia Murcia APRN Primary Care Provider [phone] Allergies No known active allergies Medications furosemide (LASIX) 20 MG tablet Take 1 tablet by mouth Daily. 06/30/2024 Active ibuprofen (ADVIL,MOTRIN) 600 MG tablet Take 1 tablet by mouth Every 6 (Six) Hours As Needed. Active potassium chloride ER (K-TAB) 20 MEQ tablet controlled-relea se ER tablet Take 1 tablet by mouth Daily. with food. 06/30/2024 Active traMADol (ULTRAM) 50 MG tablet 1 tablet. Active Biotin 10 MG capsule Take by mouth. Active Active Problems Problem Noted Date Diagnosed Date Heart murmur, systolic 07/12/2024 Essential hypertension 07/07/2024 Bilateral lower extremity edema 07/07/2024 Encounters Date Type Department Care Team Description 08/02/2024 3:00 PM EST - 08/02/2024 11:59 PM EST Hospital Encounter [facility] NONINVASIVE LAB [address] [place] [address] Arrived Discharge Disposition: Home or Self Care 08/02/2024 Documentation [facility] CARDI[facility] [address] [place] [phone] Roselia Burks APRN 08/02/2024 Travel 07/14/2024 Telephone [facility] [address] [facility] [address] [place] [address] Roselia Burks, STEM MOUNTER 07/13/2024 Documentation [facility] [address] [facility] [address] [place] [address] Roselia Burks, STEM MOUNTER 07/12/2024 2:20 PM EDT Lab [facility]ORAT[facility] [address] [facility] [address] Bilateral lower extremity edema 07/12/2024 1:00 PM EDT Office Visit [facility] [address] [facility] [address] [place] [address] Roselia Burks, STEM MOUNTER Bilateral lower extremity edema (Primary Dx); Heart murmur, systolic 07/12/2024 Travel from Last 3 Months Family History Medical History Relation Name Comments Heart disease Father Stroke Father Alzheimer's disease Mother Relation Name Status Comments Father Mother Social History Tobacco Use Types Packs/Day Years Used Date Smoking Tobacco: Never Passive Smoke Exposure: Past Smokeless Tobacco: Never Tobacco Cessation:Counseling Given: Not Answered Alcohol Use Standard Drinks/Week Comments Never 0 (1 standard drink = 0.6 oz pur e alcohol) Comments Unknown Sex and Gender Information Value Date Recorded Sex Assigned at Not on file Legal Sex Female 9:13 AM EDT Gender Identity Not on file Sexual Orientation Not on file Last Filed Vital Signs Vital Sign Reading Time Taken Comments Blood Pressure 130/78 07/12/2024 1:43 PM EDT Pulse 73 07/12/2024 1:13 PM EDT Temperature - - Respiratory Rate - - Oxygen Saturation 99% 07/12/2024 1:13 PM EDT Inhaled Oxygen Concentration - - Weight 65.7 kg (144 lb 12.8 oz) 024 12:51 PM EDT Height 160 cm (5' 3 ) 07/12/2024 12:51 PM EDT Body Mass Index 25.65 07/12/2024 12:51 PM EDT Plan of Treatment Upcoming Encounters Date Type Department Care Team (Late st Contact Info) Description 10/25/2024 9:40 AM EST Office Visit [facility] [address] [place] [phone] Roselia Burks, STEM MOUNTER [address] [facility] [address] [facility] [address] [place] [address] Health Maintenance Due Date Last Done Comments BMI FOLLOWUP 1958 COLOGUARD 1958 COLON CANCER SCREENING 5 YEA R SIGMOIDOSCOPY 1958 COLONOSCOPY 1958 COLORECTAL CANCER SCREENING 1958 CT COLONOGRAPHY 1958 DXA SCAN 1958 FECAL OCCULT BLOOD TEST 1958 FIT Testing (1 year) 1958 TDAP/TD VACCINES (1 - Tdap) 1977 MAMMOGRAM 1998 ZOSTER VACCINE (1 of 2) 02/29/2008 Pneumococcal Vaccine 65+ (1 of 1 - PCV) 2023 INFLUENZA VACCINE 04/13/2024 COVID-19 Vaccine ( - season) 2024, 01/11/2021 ANNUAL PHYSICAL 07/07/2024 HEPATITIS C SCREENING 07/07/2024 Procedures Procedure Name Priority Date/Time Associated Diagnosis Comments ECHO COMPLETE W/ DOPPLER AND COLOR FLOW Routine 08/02/2024 3:42 PM EST Bilateral lower extremity edema Heart murmur, systolic MAGNESIUM Routine 07/12/2024 2:20 PM EDT Bilateral lower extremity edema BASIC METABOLIC PANEL Routine 07/12/2024 2:20 PM EDT Bilateral lower extremity edema D-DIMER, QUANTITATIVE Routine 07/12/2024 2:20 PM EDT Bilateral lower extremity edema PROBNP Routine 07/12/2024 2:20 PM EDT Bilateral lower extremity edema ECG 12-LEAD Routine 07/12/2024 Bilateral lower extremity edema from Last 3 Months Results * ECHO COMPLETE W/ DOPPLER AND COLOR FLOW (08/02/2024 3:42 PM EST) LVIDd 3.7 cm LVIDs 2.30 cm IVSd 1.30 cm LVPWd 0.90 cm IVS/LVPW 1.44 cm LVOT diam 1.80 cm MV E max eduardo 64.3 cm/sec MV A max eduardo 75.6 cm/sec MV E/A 0.85 Med Peak E' Eduardo 7.7 cm/sec Lat Peak E' Eduardo 4.5 cm/sec Avg E/e' ratio 10.54 RV Base 3.6 cm RV Mid 2.29 cm RV Length 5.3 cm TAPSE (>1.6) 1.74 cm RV S' 14.2 cm/sec LA dimension (2D) 2.9 cm LV V1 max 82.7 cm/sec LV V1 max PG 2.7 mmHg LV V1 mean PG 1.47 mmHg LV V1 VTI 24.5 cm Ao pk eduardo 110.4 cm/sec Ao max PG 4.9 mmHg MV max PG 4.8 mmHg MV P1/2t 78.0 msec PA acc time 0.11 sec Ao root diam 2.9 cm Ascending aorta 2.5 cm EF(MOD-bp) 58.7 % LV GLOBAL STRAIN -21.1 % Anatomical Region Laterality Modality Ultrasound Narrative 08/02/2024 3:56 PM EST ?Left ventricular systolic function is normal. Calculated left ventricular EF = 58.7% Left ventricular ejection fraction appears to be 56 - 60%. ?Left ventricular wall thickness is consistent with mild septal asymmetric hypertrophy. ?No significant structural or functional valvular disease. There is no previous echocardiogram available for comparison. Left Ventricle Left ventricular systolic function is normal. Calculated left ventricular EF = 58.7% Left ventricular ejection fraction appears to be 56 - 60%. Global longitudinal LV strain (GLS) = -21.1%. Normal left ventricular cavity size noted. Left ventricular wall thickness is consistent with mild septal asymmetric hypertrophy. All left ventricular wall segments contract normally. Right Ventricle Normal right ventricular cavity size, wall thickness, systolic function and septal motion noted. Left Atrium Normal left atrial size and volume noted. Right Atrium Normal right atrial cavity size noted. Mitral Valve The mitral valve is structurally normal with no regurgitation or significant stenosis present. Tricuspid Valve The tricuspid valve is structurally normal with no significant regurgitation or significant stenosis present. Aortic Valve The aortic valve is structurally normal with no regurgitation or stenosis present. Pulmonic Valve The pulmonic valve is structurally normal with no regurgitation or significant stenosis present. Pericardium The pericardium is normal. There is no evidence of pericardial effusion. . Greater Vessels No dilation of the aortic root is present. us Roselia Burks APRN CV ECHO ORDERABLES Final Re sult * proBNP (07/12/2024 2:20 PM EDT) [facility] proBNP 48.7 0.0 - 900.0 pg/mL 07/12/2024 8:11 PM EDT [facility] Blood Venipuncture / Unknown 07/12/2024 2:20 PM EDT 07/12/2024 2:20 PM EDT [facility] LABORATORY - 07/12/2024 8:11 PM EDT This assay is used as an aid in the diagnosis of individuals suspected of having heart failure. It can be used as an aid in the diagnosis of acute decompensated heart failure (ADHF) in patients presenting with signs and symptoms of ADHF to the emergency department (ED). In addition, NT-proBNP of <300 pg/mL indicates ADHF is not likely. Age Range Result Interpretation ??NT-proBNP Concentration (pg/mL: <50 ? Positive ?>450 ? Patel ?300-450 ? Negative ?<300 50-75 ? Positive ?>900 ?Patel ?300-900 ?Negative ?<300 >75 ? Positive ?>1800 ?Patel ?300-1800 ?Negative ?<300 us Roseliamagen Burks STEM MOUNTER LAB BLOOD ORDERABLES Final Result [facility]
[address] [place] [id number], * D-dimer, Quantitative (07/12/2024 2:20 PM EDT) [facility] D-Dimer, Quantitative 0.50 0.00 - 0.66 MCGFEU/mL 07/12/2024 3:19 PM EDT [facility] Blood Venipuncture / Unknown 07/12/2024 2:20 PM EDT 07/12/2024 2:20 PM EDT Narrative [facility] - 07/12/2024 3:19 PM EDT According to the assay aluminum fabrication supervisor's published package insert, a normal (<0.50 MCGFEU/mL) D-dimer result in conjunction with a non-high clinical probability assessment, excludes deep vein thrombosis (DVT) and pulmonary embolism (PE) with high sensitivity. D-dimer values increase with age and this can make VTE exclusion of an older population difficult. To address this, the [employer] [place] [employer], based on best available evidence and recent guidelines, recommends that clinicians use age-adjusted D-dimer thresholds in patients greater than 50 years of age with: a) a low probability of PE who do not meet all Pulmonary Embolism Rule Out Criteria, or b) in those with intermediate probability of PE. The formula for an age-adjusted D-dimer cut-off is age/100 . For example, a 60 year old patient would have an age-adjusted cut-off of 0.60 MCGFEU/mL and an 80 year old 0.80 MCGFEU/mL. Roselia Burks STEM MOUNTER LAB BLOOD ORDERABLES Final Result [facility]
[address] [place] [address], [place] [phone] * Magnesium (07/12/2024 2:20 PM EDT) [facility] Magnesium 2.2 1.6 - 2.4 mg/dL 07/12/2024 8:11 PM EDT [facility] Blood Venipuncture / Unknown 07/12/2024 2:20 PM EDT 07/12/2024 2:20 PM EDT [facility] LAB BLOOD ORDERABLES Final Result Performing Organization Address City/[facility]/ZIP Co de Phone Number [facility]
[address] [place] [address], [place] [phone] * Basic Metabolic Panel (07/12/2024 2:20 PM EDT) [facility] Glucose 97 65 - 99 mg/dL 07/12/2024 8:11 PM EDT [facility] BUN 13 8 - 23 mg/dL 07/12/2024 8:11 PM EDT [facility] Creatinine 0.76 0.57 - 1.00 mg/dL 07/12/2024 8:11 PM EDT [facility] Sodium 142 136 - 145 mmol/L 07/12/2024 8:11 PM EDT [facility] Potassium 4.2 3.5 - 5.2 mmol/L 07/12/2024 8:11 PM EDT [facility] Chloride 105 98 - 107 mmol/L 07/12/2024 8:11 PM EDT [facility] CO2 26.0 22.0 - 29.0 mmol/L 07/12/2024 8:11 PM EDT [facility] Calcium 9.5 8.6 - 10.5 mg/dL 07/12/2024 8:11 PM EDT [facility] BUN/Creatinine Ratio 17.1 7.0 - 25.0 07/12/2024 8:11 PM EDT [facility] Anion Gap 11.0 5.0 - 15.0 mmol/L 07/12/2024 8:11 PM EDT [facility] eGFR 86.5 >60.0 mL/min/1.7 3 07/12/2024 8:11 PM EDT [facility] Blood Venipuncture / Unknown 07/12/2024 2:20 PM EDT 07/12/2024 2:20 PM EDT Narrative [facility] - 07/12/2024 8:11 PM EDT GFR Normal >60 Chronic Kidney Disease <60 Kidney Failure <15 Roselia Burks APRN LAB BLOOD ORDERABLES Final Result [facility]
[address] [place] [address], * ECG 12-LEAD (07/12/2024) Narrative 07/12/2024 Roselia Burks APRN ? 07/12/2024 ??1:55 PM ECG 12 Lead Date/Time: 07/12/2024 1:51 PM Performed by: Roselia Burks APRN Authorized by: Roselia Burks APRN ??Rhythm comments: Normal sinus rhythm, normal ECG, 73 bpm, QRS 80 ms, QTc 398 ms, OR 184 ms, no prior ECGs to review Procedure Note Roselia Burks APRN - 07/12/2024 1:00 PM EDT Subjective: Encounter Date:07/12/2024 Patient ID: Marguerite Martinez is a 64 y.o. white female [place], [place], works at [employer]. REFERRING PCP: Pia Murcia APRN Chief Complaint: Chief Complaint Patient presents with Hypertension Leg Swelling Problem List: Bilateral lower extremity edema Started PRN Lasix June 2024 Lower extremity venous duplex at [facility] apparently negativeOctober 2023-data deficit Normal ECG June 2024 Anemia Anxiety Vitamin D deficiency Arthritis RLE pain Lumbar back pain History of uterine prolapse Surgical history: Tubal ligation Bladder tack Partial hysterectomy No Known Allergies Current Outpatient Medications: Biotin 10 MG capsule, Take by mouth., Disp: , Rfl: furosemide (LASIX) 20 MG tablet, Take 1 tablet by mouth Daily., Disp: ,Rfl: ibuprofen (ADVIL,MOTRIN) 600 MG tablet, Take 1 tablet by mouth Every 6(Six) Hours As Needed., Disp: , Rfl: potassium chloride ER (K-TAB) 20 MEQ tablet controlled-release ERtablet, Take 1 tablet by mouth Daily. with food., Disp: , Rfl: traMADol (ULTRAM) 50 MG tablet, 1 tablet., Disp: , Rfl: History of Present Illness This is a 64-year-old white female who presents to establish care forbilateral lower extremity edema that has been ongoing for the past month.She notices it more in her RLE than LLE. She says that she has pain atnight in her legs. She thinks that some of this is coming from her back.She supposed to have an upcoming MRI of her back. She says that shestands for a long time that by the end of the day she has more swelling inher legs and back pain. She denies any extra salt consumption but does goout to eat rather frequently. The patient denies any alcohol use, smokinghistory, kidney dysfunction, MIs, stress tests, heart catheterizations,CVAs, TIAs, seizures, DVTs, PEs, COPD, asthma, thyroid dysfunction,hypertension, hyperlipidemia, diabetes mellitus, or rheumatic fever. Thepatient denies any chest pain, shortness of breath, dizziness, presyncope,syncope. She occasionally will notice a quick heart palpitation but itonly lasts for a second or 2 and is not that frequent. She notices itmore with stress. The patient denies any PIH, preeclampsia, orgestational diabetes. The patient has not used the Lasix for the pastcouple days and does not feel like she has noticed much difference withusing it or not using it. She had a lower extremity [facility]app[facility] at [facility] weeks ago which was negative forDVT-data deficit. She has no family history of early CAD. Her father hada stroke followed by a second stroke which paralyzed him. He later passedaway from CHF around 63 years old. She has multiple family members thathave had cancer. The patient says that she has seen ENT because she hadthrush in her mouth after she had her partial hysterectomy/bladder tack inJanuary 2023. Patient uses compression stockings sometimes but sometimesthe compression stockings get very tight and she is afraid that they arecausing more harm than good. Cardiovascular Disease Risk Factors increased age Social History Socioeconomic History Marital status: Unknown Tobacco Use Smoking status: Never Passive exposure: Past Smokeless tobacco: Never Vaping Use Vaping status: Never Used Substance and Sexual Activity Alcohol use: Never Drug use: Never Sexual activity: Defer Family History Problem Relation Age of Onset Alzheimer's disease Mother Heart disease Father Stroke Father Review of Systems Constitutional: Negative. HENT: Thrush Eyes: Negative. Cardiovascular: Positive for leg swelling and palpitations (occasional).Negative for chest pain, dyspnea on exertion, near-syncope, paroxysmalnocturnal dyspnea and syncope. Respiratory: Negative for shortness of breath. Endocrine: Negative. Hematologic/Lymphatic: Negative. Skin: Negative. Musculoskeletal: Positive for arthritis, back pain, joint pain, myalgiasand stiffness. Gastrointestinal: Negative. Genitourinary: Positive for frequency. Neurological: Negative for dizziness, focal weakness and seizures. Psychiatric/Behavioral: Negative. Allergic/Immunologic: Negative. Obtained and negative except as outlined in problem list and HPI. ECG 12 Lead Date/Time: 07/12/2024 1:51 PM Performed by: Roselia Burks APRN Authorized by: Roselia Burks APRN Rhythm comments: Normal sinusrhythm, normal ECG, 73 bpm, QRS 80 ms, QTc 398 ms, OR 184 ms, no priorECGs to review Objective: Vitals: 07/12/24 1311 07/12/24 1312 07/12/24 1313 07/12/24 1343 BP: 132/80 136/80 130/82 130/78 BP Location: Right arm Left arm Left arm Right arm Patient Position: Standing Standing Sitting Sitting Cuff Size: Adult Adult Adult Pulse: 73 SpO2: 99% 99% 99% Weight: Height: Body mass index is 25.65 kg/m??. Constitutional: Appearance: Healthy appearance. Not in distress. Neck: Vascular: No JVR. JVD normal. Pulmonary: Effort: Pulmonary effort is normal. Breath sounds: Normal breath sounds. No wheezing. No rhonchi. No rales. Chest: Chest wall: Not tender to palpatation. Cardiovascular: PMI at left midclavicular line. Normal rate. Regular rhythm. Normal S1.Normal S2. Murmurs: There is a grade 1/6 systolic murmur at the LLSB. No gallop. No click. No rub. Pulses: Intact distal pulses. Edema: Ankle: bilateral 1+ edema of the ankle. Feet: bilateral 1+ edema of the feet. Abdominal: General: Bowel sounds are normal. Palpations: Abdomen is soft. Tenderness: There is no abdominal tenderness. Musculoskeletal: Normal range of motion. General: No tenderness. Skin: General: Skin is warm and dry. Neurological: General: No focal deficit present. Mental Status: Alert and oriented to person, place and time. Lab Review: No results found for this or any previous visit. Advance Care Planning ACP discussion was held with the patient during this visit. Patient doesnot have an advance directive, declines further assistance. Assessment: Patient with bilateral lower extremity edema with no prior cardiacworkup. ECG normal in office today. I will order an echocardiogram toassess heart structure/function and order labs. Patient recently hadlower extremity venous duplex at [facility] and we will try toobtain records of this. Diagnosis Plan 1. Bilateral lower extremity edema Adult Transthoracic Echo Complete W/Cont if Necessary Per Protocol proBNP D-dimer, Quantitative Basic Metabolic Panel Magnesium 2. Heart murmur, systolic Adult Transthoracic Echo Complete W/ Cont ifNecessary Per Protocol Plan: Patient to continue current medications and close follow up with the aboveproviders. Tentative cardiology follow up in September 2024 or patient may returnsooner PRN. Echocardiogram proBNP, BMP, mag, D-dimer [facility]. Electronically signed by Roselia Burks APRN, 07/12/24, 1:54 PM EDT. Roselia Burks STEM MOUNTER ECG ORDERABLES Final Resul t from Last 3 Months Insurance [facility] PPO Care Teams Set Painter Relationship Specialty Start Date End Date Pia Murcia APRN [address] [place] [id number] PCP - General Nurse Practitioner 07/06/24
--- OUTSIDE RECORDS SUMMARY | 2024-08-04 08:35 | XMS_ITS | Encounter Summary ---
Author Organization [facility] Address [address] [place] [address] Care Team Providers Care Speech Language Pathology Assistant Name Role Phone Pia Murcia APRN Primary Care Provider [phone] Reason for Referral * Diagnostic Imaging (Routine) - Closed Specialty Diagnoses / Procedures Referred By Contac t Referred To Contact Diagnoses Bilateral lower extremity edema Heart murmur, systolic Procedures Adult Transthoracic Echo Complete W/ Cont if Necessary Per Protocol MT ECHO TTHRC R-T 2D W/WOM-MODE COMPL SPEC&COLR D MT ECHO TRANSTHORC R-T 2D W/WO M-MODE REC F-UP/LMTD Roselia Burks APRN [address] [place] [address] [address] Phone: tel: fax: [address] [address] Phone: tel: Referral ID Status Reason Start Date Expiration Date Visits Re quested Visits Authorized [id number] Closed 07/12/2024 07/12/2025 1 1 Reason for Visit * Reason Comments Hypertension Leg Swelling * Consultation (Routine) - Pending Review Specialty Diagnoses / Procedures Referred By Contmorgan t Referred To Contact Cardiology Diagnoses Edema Pia Murcia APRN [address] [place] [address] Phone: tel: fax: Roselia Burks APRN [address] [facility] [address] [place] [address] Phone: tel: fax: Referral ID Status Reason Start Date Expiration Date V isits Requested Visits Authorized [id number] Pending Review 07/06/2024 07/06/2025 1 1 Encounter Details Date Type Department Care Team (Late st Contact Info) Description 07/12/2024 1:00 PM EDT Office Visit [facility] [address] [facility] [address] [place] [id number] Roselia Burks APRN [address] [facility] [address] [place] [address] Bilateral lower extremity edema (Primary Dx); Heart murmur, systolic Social History Tobacco Use Types Packs/Day Years [...] on file Sexual Orientation Not on file documented as of this encounter Last Filed Vital Signs Vital Sign Reading [...] Mass Index 25.65 07/12/2024 12:51 PM EDT documented in this encounter Progress Notes * Roselia Burks APRN - 07/12/2024 1:00 PM EDTAssociated Order(s): ECG 12 Lead Post-Procedure Diagnose(s): Bilateral lower extremity edema Subjective: Encounter Date:07/12/2024 Patient ID: Marguerite Martinez is a 64 y.o. white female from [place], [place], works at [employer]. REFERRING PCP: Pia Murcia APRN Chief Complaint: Chief Complaint Patient presents with Hypertension Leg Swelling Problem List: Bilateral lower extremity edema Started PRN Lasix June 2024 Lower extremity venous duplex at [facility] apparently negative June 2024-data deficit Normal ECG June 2024 Anemia Anxiety Vitamin D deficiency Arthritis RLE pain Lumbar back pain History of uterine prolapse Surgical history: Tubal ligation Bladder tack Partial hysterectomy No Known Allergies Current Outpatient Medications: Biotin 10 MG capsule, Take by mouth., Disp: , Rfl: furosemide (LASIX) 20 MG tablet, Take 1 tablet by mouth Daily., Disp: , Rfl: ibuprofen (ADVIL,MOTRIN) 600 MG tablet, Take 1 tablet by mouth Every 6 (Six) Hours As Needed., Disp: , Rfl: potassium chloride ER (K-TAB) 20 MEQ tablet controlled-release ER tablet, Take 1 tablet by mouth Daily. with food., Disp: , Rfl: traMADol (ULTRAM) 50 MG tablet, 1 tablet., Disp: , Rfl: History of Present Illness This is a 64-year-old white female who presents to establish care for bilateral lower extremity edema that has been ongoing for the past month. She notices it more in her RLE than LLE. She says that she has pain at night in her legs. She thinks that some of this is coming from her back. She supposed to have an upcoming MRI of her back. She says that she stands for a long time that by the end of the day she has more swelling in her legs and back pain. She denies any extra salt consumption but does go out to eat rather frequently. The patient denies any alcohol use, smoking history, kidney dysfunction, MIs, stress tests, heart catheterizations, CVAs, TIAs, seizures, DVTs, PEs, COPD, asthma, thyroid dysfunction, hypertension, hyperlipidemia, diabetes mellitus, or rheumatic fever. The patientdenies any chest pain, shortness of breath, dizziness, presyncope, syncope. She occasionally will notice a quick heart palpitation but it only lasts for a second or 2 and is not that frequent. She notices it more with stress. The patient denies any PIH, preeclampsia, or gestational diabetes. The patient has not used the Lasix for the past couple days and does not feel like she has noticed much difference with using it or not using it. She had a lower extremity venous duplex apparently at [facility] 2 weeks ago which was negative for DVT-data deficit. She has no family history of early CAD. Her father had a stroke followed by a second stroke which paralyzed him. He later from CHF around 63 years old. She has multiple family members that have had cancer. The patient says that she has seen ENT because she had thrush in her mouth after she had her partial hysterectomy/bladder tack in September 2023. Patient uses compression stockings sometimes but sometimes the compression stockings get very tight and she is afraid that they are causing more harm than good. Cardiovascular Disease Risk [...] Cardiovascular: Positive for leg swelling and palpitations (occasional). Negative for chest pain, dyspnea on exertion, near-syncope, paroxysmal nocturnal dyspnea and syncope. Respiratory: Negative for shortness of breath. Endocrine: Negative. Hematologic/Lymphatic: Negative. Skin: Negative. Musculoskeletal: Positive for arthritis, back pain, joint pain, myalgias and stiffness. Gastrointestinal: Negative. Genitourinary: Positive for frequency. Neurological: Negative for dizziness, focal weakness and seizures. Psychiatric/Behavioral: Negative. Allergic/Immunologic: Negative. Obtained and negative except as outlined in problem list and HPI. ECG 12 Lead Date/Time: 07/12/2024 1:51 PM Performed by: Roselia Burks APRN Authorized by: Roselia Burks APRN Rhythm comments: Normal sinus rhythm, normal ECG, 73 bpm, QRS80 ms, QTc 398 ms, MT 184 ms, no prior ECGs to review Objective: Vitals: 07/12/24 1311 07/12/24 [...] midclavicular line. Normal rate. Regular rhythm. Normal S1. Normal S2. Murmurs: There is a grade 1/6 [...] with the patient during this visit. Patient does not have an advance directive, declines further assistance. Assessment: Patient with bilateral lower extremity edema with no prior cardiac workup. ECG normal in office today. I will order an echocardiogram to assess heart structure/function and order labs. Patient recently had lower extremity venous duplex at [facility] and we will try to obtain records of this. Diagnosis Plan 1. Bilateral lower extremity edema Adult Transthoracic Echo Complete W/ Cont if Necessary Per Protocol proBNP D-dimer, Quantitative Basic Metabolic Panel Magnesium 2. Heart murmur, systolic Adult Transthoracic Echo Complete W/ Cont if Necessary Per Protocol Plan: Patient to continue current medications and close follow up with the above providers. Tentative cardiology follow up in September 2024 or patient may return sooner PRN. Echocardiogram proBNP, BMP, mag, D-dimer Patient recently had lower extremity venous duplex at [facility] and we will try to obtain records of this. Electronically signed by Roselia Burks APRN, 07/12/24, 1:54 PM EDT. documented in this encounter Plan of Treatment Upcoming Encounters Date Type Department Care Team (Late st Contact Info) Description 10/25/2024 9:40 AM EST Office Visit [facility] [address] [place] [address] Roselia Burks APRN [address] [facility] [address] [place] [address] documented as of this encounter Procedures Procedure Name Priority Date/Time Associated Diagnosis Comments ECHO COMPLETE W/ DOPPLER AND COLOR FLOW Routine 08/02/2024 3:42 PM EST Bilateral lower extremity edema Heart murmur, systolic ECG 12-LEAD Routine 07/12/2024 Bilateral lower extremity edema documented in this encounter Results * ECHO COMPLETE W/ DOPPLER AND [...] CV ECHO ORDERABLES Final Re sult * Magnesium (07/12/2024 2:20 PM EDT) Magnesium 2.2 1.6 - 2.4 mg/dL 07/12/2024 8:11 PM EDT [facility] Blood Venipuncture / Unknown 07/12/2024 2:20 PM EDT 07/12/2024 2:20 PM EDT Roselia Burks APRN LAB BLOOD ORDERABLES Final Result [facility]
[address] [place] [address], * Basic Metabolic Panel (07/12/2024 2:20 PM EDT) Glucose 97 65 - 99 mg/dL 07/12/2024 8:11 PM EDT [facility] BUN 13 8 - 23 mg/dL 07/12/2024 8:11 PM EDT [facility] Creatinine 0.76 0.57 - 1.00 mg/dL 07/12/2024 8:11 PM EDT [facility] Sodium 142 136 - 145 mmol/L 07/12/2024 8:11 PM EDT [facility] Potassium 4.2 3.5 - 5.2 mmol/L 07/12/2024 8:11 PM EDT [facility] Chloride 105 98 - 107 mmol/L 07/12/2024 8:11 PM EDT [facility] CO2 26.0 22.0 - 29.0 mmol/L 07/12/2024 8:11 PM EDT [facility] Calcium 9.5 8.6 - 10.5 mg/dL 07/12/2024 8:11 PM EDT [facility] BUN/Creatinine Ratio 17.1 7.0 - 25.0 07/12/2024 8:11 PM EDT [facility] Anion Gap 11.0 5.0 - 15.0 mmol/L 07/12/2024 8:11 PM EDT [facility] eGFR 86.5 >60.0 mL/min/1.7 3 07/12/2024 8:11 PM EDT [facility] Blood Venipuncture / Unknown 07/12/2024 2:20 PM EDT 07/12/2024 2:20 PM EDT Narrative [facility] - 07/12/2024 8:11 PM EDT GFR Normal >60 Chronic Kidney Disease <60 Kidney Failure <15 Roselia Ghotra Kimmie STEEL LAB BLOOD ORDERABLES Final Result [facility]
[address] [place] [address], * D-dimer, Quantitative (07/12/2024 2:20 PM EDT) [facility] D-Dimer, Quantitative 0.50 0.00 - 0.66 MCGFEU/mL 07/12/2024 3:19 PM EDT [facility] Blood Venipuncture / Unknown 07/12/2024 2:20 PM EDT 07/12/2024 2:20 PM EDT [facility] - 07/12/2024 3:19 PM EDT According to the assay concaving machine operator's published package insert, a normal (<0.50 MCGFEU/mL) D-dimer result in conjunction with a non-high clinical probability assessment, excludes deep vein thrombosis (DVT) and pulmonary embolism (PE) with high sensitivity. D-dimer values increase with age and this can make VTE exclusion of an older population difficult. To address this, the [employer], based on best available [...] an 80 year old 0.80 MCGFEU/mL. Roselia Ghotra Kimmie CEEN LAB BLOOD ORDERABLES Final Result Performing Organization Address City/[facility]/ZIP Co de Phone Number [facility]
[address] [place] [address], [place] [phone] * proBNP (07/12/2024 2:20 PM EDT) [facility] Signature proBNP 48.7 0.0 - 900.0 pg/mL 07/12/2024 8:11 PM EDT [facility] Blood Venipuncture / Unknown 07/12/2024 2:20 PM EDT 07/12/2024 2:20 PM EDT Narrative [facility] - 07/12/2024 8:11 PM EDT This [...] ? Positive ?>1800 ?Patel ?300-1800 ?Negative ?<300 Roselia Burks APRN LAB BLOOD ORDERABLES Final Result [facility]
[address] [place] [address], * ECG 12-LEAD (07/12/2024) Narrative 07/12/2024 Roselia Burks APRN ? 07/12/2024 ??1:55 PM ECG 12 Lead Date/Time: 07/12/2024 1:51 PM Performed by: Roselia Burks APRN Authorized by: Roselia Burks APRN ??Rhythm comments: Normal sinus rhythm, normal ECG, 73 bpm, QRS 80 ms, QTc 398 ms, MT 184 ms, no prior ECGs to review Procedure Note Roselia Burks APRN - 07/12/2024 1:00 PM EDT Subjective: Encounter Date:07/12/2024 Patient ID: Marguerite Martinez is a 64 y.o. white female [place], [place], works at [employer]. REFERRING PCP: Pia Murcia APRN Chief Complaint: Chief Complaint Patient presents with Hypertension Leg Swelling Problem List: Bilateral lower extremity edema Started PRN Lasix June 2024 Lower extremity venous duplex at [facility] apparently negativeOct2023-data deficit Normal ECG June 2024 Anemia Anxiety [...] had a lower extremity venous duplexapparently at [facility] 2 weeks ago which was negative forDVT-data [...] bpm, QRS 80 ms, QTc 398 ms, MT 184 ms, no priorECGs to review Objective: [...] Patient recently hadlower extremity venous duplex at [facility] and we will try toobtain records of [...] [facility]. Electronically signed by Roselia Burks APRN, 07/12/24, 1:54 PM EDT. Roselia Burks APRN ECG ORDERABLES Final Resul t documented in this encounter Visit Diagnoses Diagnosis Bilateral lower extremity edema- Primary Heart murmur, systolic documented in this encounter Care Teams Speech Language Pathology Assistant Relationship Specialty Start Date End Date Pia Murcia APRN [address] [place] [address] PCP - General Nurse Practitioner 07/06/24 documented as of this encounter
--- OUTSIDE RECORDS SUMMARY | 2024-08-04 08:35 | XMS_ITS | Encounter Summary ---
Author Organization [place] [address] Care Team Providers Care Warehouse Puller Name Role Phone Jean Davila MD Primary Care Provider [phone] Reason for Visit * Reason Comments Post-Operative Exam Encounter Details Date Type Department Care Team (Latest Contact Info) Description 02/09/2024 8:00 AM EDT Office Visit [facility] [address] [address] Penny Ferguson PA-C [address] [place] [address] Hx of uterine prolapse (Primary Dx); History of pelvic surgery; History of suburethral sling procedure; Granulation tissue of vagina Social History Tobacco Use Types Packs/Day Years Used Date Smoking Tobacco: Never Smokeless Tobacco: Never Tobacco Cessation:Counseling Given: Not Answered Alcohol Use Standard Drinks/Week Comments Never 0 (1 standard drink = 0.6 oz pur e alcohol) Comments No Sex and Gender Information Value Date Recorded Sex Assigned at Not on file Legal Sex Female 1:47 PM EDT Gender Identity Not on file Sexual Orientation Not on file documented as of this encounter Last Filed Vital Signs Vital Sign Reading Time Taken Comments Blood Pressure - - Pulse 80 02/09/2024 7:46 AM EDT Temperature - - Respiratory Rate - - Oxygen Saturation 99% 02/09/2024 7:46 AM EDT Inhaled Oxygen Concentration - - Weight 65 kg (143 lb 3.2 oz) 02/09/2024 7:46 AM EDT Height - - Body Mass Index 25.37 09/22/2023 9:12 AM EST documented in this encounter Progress Notes * Penny Farmer PA - 02/09/2024 8:00 AM EDT Images from the original note were not included. Yeni Farmer PA-C Follow Up Note Marguerite Martinez 1960 Assessment: 63 y.o. female with 1. Hx of uterine prolapse 2. History of pelvic surgery 3. History of suburethral sling procedure 4. Granulation tissue of vagina Plan: 1) H/o Total Vaginal Hysterectomy, RIGHT Salpingectomy, Uterosacral Ligament Suspension, Anterior Repair, Posterior Repair, ENTEROCELE REPAIR Placement of Retropubic Midurethral Mesh Sling, Cystoscopy, VAGINAL AND VULVAR BIOPSY with Dr. Villeda on 10/11/23: No return of vaginal bulge/POP symptoms. DAVID resolved. -Granulation tissue along vaginal cuff treated with silver nitrate -Remaining granulation tissue along posterior wall incision removed with ring forceps and treated with silver nitrate -Wait 1 week before resuming vaginal estrogen cream, then restart; no refills needed at this time 2) F/u in 6-8 weeks for repeat exam HPI: Marguerite Martinez is a 63 y.o. who is here for f/u s/p POP/DAVID surgery S/p Total Vaginal Hysterectomy, RIGHT Salpingectomy, Uterosacral Ligament Suspension, Anterior Repair, Posterior Repair, ENTEROCELE REPAIR, Placement of Retropubic Midurethral Mesh Sling, Cystoscopy,VAGINAL AND VULVAR BIOPSY with Dr. Villeda on 10/11/23. Patient has not had any issues since she was last seen. She has been using estrogen cream as recommended to help with healing. No return of vaginal bulge/POP symptoms or urinary leakage. No vaginal bleeding, discharge, feelings of incomplete emptying, UTI symptoms, or pain. No new issues or concerns today. Past Medical History: Diagnosis Date Arthritis Chronic low back pain Complete uterovaginal prolapse Constipation, chronic Endometrial stripe increased Insomnia PMB (postmenopausal bleeding) DAVID (stress urinary incontinence, female) Past Surgical History: Procedure Laterality Date CYSTOCELE REPAIR N/A 10/11/2023 .; Surgeon: Chika Johnson MD; Location: [facility] MAIN OR; Service: Gynecology FL REPR VAGINAL PROLAPSE,UTEROSACRAL N/A 10/11/2023 .; Surgeon: Chika Johnson MD; Location: [facility]; Service: Gynecology TUBAL LIGATION URETHROPEXY N/A 10/11/2023 .; Surgeon: Chika Johnson MD; Location: [facility]; Service: Gynecology VAGINA SURGERY N/A 10/11/2023 Surgeon: Chika Johnson MD; Location: [facility]; Service: Gynecology VAGINA SURGERY N/A 10/11/2023 Surgeon: Chika Johnson MD; Location: [facility]; Service: Gynecology Family History Problem Relation Age of Onset Other (Other) Mother bowel blockage caused Early Mother Hearing Loss Mother 53 Alzheimer's Disease Mother Early Father Heart Disease Father Stroke Father Asthma Father Anesth Problems Neg Hx Review of Systems: Constitutional: Denies fever, chills, weakness Gastrointestinal: Denies jaundice, nausea, liver problems Genitourinary: Denies vaginal bulge/pressure symptoms, vaginal discharge, dysuria Focused Physical Exam: Vitals: 02/09/24 0746 Pulse: 80 SpO2: 99% Locksmith Apprentice: Kasandra Pelvic Exam: External genitalia: Normal Vagina: Remaining sutures at vaginal cuff easily removed with scopette. Large area of granulation tissue along the cuff treated with silver nitrate. Remaining granulation tissue along posterior wall easily removed with ring forceps and then treated with silver nitrate. POP-Q Aa = 0 Ba = 0 C = -7 GH = 3 PB = 3 TVL = 7 Ap = -3 Bp = -3 D = x Yeni Farmer PA-[place] [address] 02/09/24 8:28 AM documented in this encounter Plan of Treatment Not on file documented as of this encounter Visit Diagnoses Diagnosis Hx of uterine prolapse- Primary Personal history of other genital system and obstetric disorders History of pelvic surgery Personal history of surgery to other organs History of suburethral sling procedure Granulation tissue of vagina Granuloma inguinale documented in this encounter Care Teams Warehouse Puller Relationship Specialty Start Date End Date Jean Davila MD [address] [place] [address] PCP - General Family Medicine 10/04/23 documented as of this encounter
--- OUTSIDE RECORDS SUMMARY | 2024-08-04 08:35 | XMS_ITS | Clinical Summary ---
Author Organization [facility] Address [address] [place] [address] Phone Care Team Providers Care Associate Sales Manager Name Role Phone Jean Davila MD Primary Care Provider [phone] Allergies No known active allergies Medications estradioL (ESTRACE) 0.01 % (0.1 mg/gram) Vagl Cream Place vaginally two times a week. 3 Active polyethylene glycol (GLYCOLAX) 17 gram/dose Oral Powder Begin Miralax, 17 g (1 capful) PO mixed in your favorite drink once a day beginning 1 week prior to surgery, after surgery drink this twice a day for 2 weeks 595 g 4 Active Cholecalciferol , Vitamin D3, 50 mcg (2,000 unit) Oral Capsule Take 1 Capsule by mouth daily. Active cyanocobalamin, vitamin B-12, (VITAMIN B-12) 5,000 mcg/mL SL Drops Place 1 mL under the tongue daily. Active ascorbic acid/vitamin E/biotin (HAIR, SKIN, NAILS WITH BIOTIN ORAL) Take 1 Tablet by mouth daily. Active docusate sodium (COLACE) 100 mg Oral Capsule Take 1 Capsule by mouth 2 times daily. 60 Capsule 2 4 Active ibuprofen (ADVIL;MOTRIN) 600 mg Oral Tablet Take 1 Tablet by mouth every 6 hours as needed for Pain. 60 Tablet 1 4 Active ondansetron (ZOFRAN-ODT) 4 mg Oral Tablet, Rapid Dissolve Take 1 Tablet by mouth every 6 hours as needed for Nausea. 30 Tablet 4 Active senna (SENOKOT) 8.6 mg Oral Tablet Take 1 Tablet by mouth daily as needed for Constipation. 30 Tablet 1 4 Active traMADoL (ULTRAM) 50 mg Oral Tablet Take 1 Tablet by mouth every 6 hours as needed for Pain (surgery). 20 Tablet 4 Active methocarbamoL (ROBAXIN) 750 mg Oral Tablet TAKE 1 TABLET BY MOUTH EVERY 4 HOURS FOR 7 DAYS Active Active Problems Problem Noted Date Diagnosed Date Post-operative state 10/11/2023 Endometrial stripe increased 07/12/2023 DAVID (stress urinary incontinence, female) 2022 PMB (postmenopausal bleeding) 07/07/2023 Complete uterovaginal prolapse 05/19/2023 Encounters Date Type Department Care Team Description 07/20/2024 Telephone [facility] [address] [address] Gracie Manzano, LILI Results 07/19/2024 8:00 AM EST Office Visit [facility] [address] [phone] Penny Ferguson PA-C Hx of uterine prolapse (Primary Dx); History of pelvic surgery; History of suburethral sling procedure; Vaginal atrophy; Vaginal discharge from Last 3 Months Surgical History Surgery Date Site/Laterality Comments TUBAL LIGATION CYSTOCELE REPAIR 10/11/2023 N/A .; Surgeon: Chika Johnson MD; Location: [facility]; Service: Gynecology Medical devices from this surgery are in the Medical Devices section. AK REPR VAGINAL PROLAPSE,UTEROSACRAL 10/11/2023 N/A .; Surgeon: Chika Johnson MD; Location: [facility]; Service: Gynecology Medical devices from this surgery are in the Medical Devices section. URETHROPEXY 10/11/2023 N/A .; Surgeon: Chika Johnson MD; Location: [facility]; Service: Gynecology Medical devices from this surgery are in the Medical Devices section. VAGINA SURGERY 10/11/2023 Vagina /N/A Surgeon: Chika Johnson MD; Location: [facility]; Service: Gynecology Medical devices from this surgery are in the Medical Devices section. VAGINA SURGERY 10/11/2023 Vagina /N/A Surgeon: Chika Johnson MD; Location: [facility]; Service: Gynecology Medical devices from this surgery are in the Medical Devices section. Medical History Medical History Date Comments DAVID (stress urinary incontinence, female) Endometrial stripe increased Constipation, chronic Complete uterovaginal prolapse PMB (postmenopausal bleeding) Insomnia Chronic low back pain Arthritis Family History Medical History Relation Name Comments Asthma Father Early Father Heart Disease Father Stroke Father Alzheimer's Disease Mother Early Mother Hearing Loss Mother Other Mother bowel blockage caused Anesth Problems Neg Hx Relation Name Status Comments Father Mother Social [...] on file Sexual Orientation Not on file Obstetrics History Last Filed Vital Signs Vital Sign Reading Time Taken Comments Blood Pressure 143/74 10/11/2023 4:10 PM EST Pulse 80 07/19/2024 7:46 AM EST Temperature 36.3 ??C (97.3 ??F) 10/11/2023 4:10 PM ES T Respiratory Rate 16 04/12/2024 7:47 AM EDT Oxygen Saturation 99% 07/19/2024 7:46 AM EST Inhaled Oxygen Concentration - - Weight 65.5 kg (144 lb 6.4 oz) 07/19/2024 7:46 A M EST Height 160 cm (5' 3 ) 04/12/2024 7:47 AM EDT Body Mass Index 25.58 04/12/2024 7:47 AM EDT Plan of Treatment Health Maintenance Due Date Last Done Comments Annual Wellness Exam 02/29/1960 Hepatitis C Screening 02/29/1976 DTaP/TDaP/Td (1 - Tdap) 1977 Breast Cancer Screening 1998 Cologuard 2003 Colon Cancer Screening 2003 Colonoscopy 2003 FIT 2003 Sigmoidoscopy 2003 Virtual Colonography 2003 Zoster (1 of 2) 02/29/2008 Bone Density Screening 2023 Pneumococcal Vaccine 65+ (1 of 1 - PCV) 2023 COVID-19 Vaccine (3 - 2023-2 5 season) 2024 02/08/2021, 01/11/2021 Influenza Vaccine (#1) 2024 Hepatitis B Vaccine Aged Out No longe r eligible based on patient's age to complete this topic Medical Devices Implanted Type Area Gis Database Administrator Device Identifier Shelf Expiration Date Model / Serial / Lot Mukesh Blue Tv Transvaginal Mesh Sling - [id number] Implanted:Qty: 1 on 10/11/2023 by Chika Johnson MD at [facility] N/A: Vagina [employer] 06/22/2026 [id number] / / [id number] Procedures Procedure Name Priority Date/Time Associated Diagnosis Comments MOLECULAR VAGINITIS PANEL (MVP) Routine 07/19/2024 8:15 AM EST Vaginal discharge from Last 3 Months Results * MOLECULAR VAGINITIS PANEL (MVP) (07/19/2024 8:15 AM EST) Bacterial Vaginosis Not Detected Not Detected 07/20/2024 1:13 AM EST [facility] Comment:Normal/Balanced vagi nal microbiome. Nakaseomyces glabrata (previously Yeni glabrata) Not Detected Not Detected 07/20/2024 1:13 AM EST [facility] Yeni group Not Detected Not Detected 07/20/2024 1:13 AM EST [facility] Comment:C. albicans, C. trop icalis, C. parapsilosis, and/or C. dubliniensis NOT detected. Yeni krusei Not Detected Not Detected 07/20/2024 1:13 AM EST [facility] Trichomonas vaginalis Not Detected Not Detected 07/20/2024 1:13 AM EST [facility] Swab SPECIMEN FROM VAGINA / Unknown 07/19/2024 8:15 AM EST 07/19/2024 8:15 AM EST Narrative [facility] - 07/20/2024 1:13 AM EST Test performed using the BD MAX Vaginal Panel, a real-time polymerase chain (PCR) molecular nucleic acid amplification test. Penny Ferguson PA-C MICROBIOLOGY - GENERA L ORDERABLES Final Result [facility], [place] [address] from Last 3 Months Insurance MEDICARE PART A on file ANTH PPO Care Teams Associate Sales Manager Relationship Specialty Start Date End Date Jean Davila MD [address] [place] [address] PCP - General Family Medicine 10/04/23
--- OUTSIDE RECORDS SUMMARY | 2024-08-04 08:35 | XMS_ITS | Encounter Summary ---
Author Organization [facility] [place] [address] Care Team Providers Care Chocolate Molder Name Role Phone Jean Davila MD Primary Care Provider [phone] Reason for Visit * Reason Onset Date Comments Results 07/20/2024 Encounter Details Date Type Department Care Team (Late st Contact Info) Description 07/20/2024 Telephone [facility] [address] [phone] Gracie Manzano RMA Results Social History Tobacco Use Types Packs/Day Years Used Date Smoking Tobacco: Never Smokeless Tobacco: Never Alcohol Use Standard Drinks/Week Comments Never 0 (1 standard drink = 0.6 oz pur e alcohol) Comments No Sex and Gender Information Value Date Recorded Sex Assigned at Not on file Legal Sex Female 1:47 PM EDT Gender Identity Not on file Sexual Orientation Not on file documented as of this encounter Miscellaneous Notes * Telephone Encounter - Gracie Manzano RMA - 07/20/2024 10:09 AM EST Pt informed. * Telephone Encounter - Gracie Manzano RMA - 07/20/2024 10:09 AM EST ----- Message from Penny Ferguson PA-C sent at 07/20/2024 7:40 AM EST ----- Staff - please call patient to let her know that her vaginal swab was normal Thank you! Yeni Ferguson PA-C documented in this encounter Plan of Treatment Not on file documented as of this encounter Visit Diagnoses Not on filedocumented in this encounter Care Teams Chocolate Molder Relationship Specialty Start Date End Date Jean Davila MD [address] [place] [address] PCP - General Family Medicine 10/04/23 documented as of this encounter
--- OUTSIDE RECORDS SUMMARY | 2024-08-04 08:35 | XMS_ITS | Encounter Summary ---
Author Organization [facility] [place] [place] [address] Care Team Providers Care Architect Internship Name Role Phone Jean Davila MD Primary Care Provider [phone] Reason for Visit * Auth/Cert/Inpt (Routine) Specialty Diagnoses / Procedures Referred By Deon t Referred To Contact Diagnoses Complete uterovaginal prolapse PMB (postmenopausal bleeding) Endometrial stripe increased DAVID (stress urinary incontinence, female) Complete uterovaginal prolapse [N81.3] PMB (postmenopausal bleeding) [N95.0] Endometrial stripe increased [R93.89] DAVID (stress urinary incontinence, female) [N39.3] Procedures VT VAG HYST,RMV TUBE/OVARY VT REPR VAGINAL PROLAPSE,UTEROSACRAL VT CMBND ANTERPOST COLPORRAPHY W/CYSTO VT SLING OPER STRES INCONTINENCE VT CYSTOURETHROSCOPY Total Vaginal Hysterectomy, Bilateral Salpingectomy, Possible Right, left or Bilateral Oophorectomy, Uterosacral Ligament Suspension, Anterior Repair, Possible Posterior Repair, Placement of Retropubic Midurethral Mesh Sling, Cystoscopy . . . Referral ID Status Reason Start Date Expiration Date Visits Re quested Visits Authorized [id number] 1 1 Encounter Details Date Type Department Care Team (Late st Contact Info) Description 10/11/2023 7:30 AM EST - 10/11/2023 11:10 AM EST Surgery [facility] [address] [place] [address] Chika Johnson MD [address] [place] [address] VAGINAL HYSTERECTOMY REMOVAL OF SINGLE FALLOPIAN TUBE Surgery Details Date/Time Status Location OR Service Patient Class Case Class Case Type Trauma Case? 10/11/2023 7:30 AM Posted [facility] MA[facility] OR [facility] OR 04 Urogynecology Same Day Surgery Elective Panel 1 Procedure [facility] Anes Op Region Wound Class Comments VAGINAL HYSTERECTOMY REMOVAL OF SINGLE FALLOPIAN TUBE Right General Clean Contaminated Total Vaginal Hysterectomy, RIGHT Salpingectomy, Uterosacral Ligament Suspension, Anterior Repair, Posterior Repair, ENTEROCELE REPAIR Placement of Retropubic Midurethral Mesh Sling, Cystoscopy, VAGINAL AND VULVAR BIOPSY ANTERIOR AND POSTERIOR REPAIR (CYSTOCELE AND RECTOCELE REPAIR) N/A General Clean Contaminated . UTEROSACRAL LIGAMENT SUSPENSION N/A General Clean Contaminated . URETHROPEXY USING TENSION FREE VAGINAL TAPE VIA RETROPUBIC SPACE WITH CYSTOSCOPY N/A General Clean Contaminated . VAGINAL BIOPSY N/A General Vagina Clean Contamina linwood EXCISION LESION OF VULVA / EXTERNAL VAGINA N/A General Vulva Clean Contaminated Surgeon Surgeon Role Service Panel Chika Johnson MD Primary Gynecology 1 Special Needs sk documented in this encounter Social History Tobacco Use Types Packs/Day Years Used Date Smoking Tobacco: Never Smokeless Tobacco: Never Alcohol Use Standard Drinks/Week Comments Never 0 (1 standard drink = 0.6 oz pur e alcohol) Comments No Sex and Gender Information Value Date Recorded Sex Assigned at Not on file Legal Sex Female 1:47 PM EDT Gender Identity Not on file Sexual Orientation Not on file COVID-19 Exposure Response Date Recorded In the last 10 days, have yo u been in contact with someone who was confirmed or suspected to have Coronavirus/COVID-19? No / Unsure 09/22/2023 8:54 AM EST documented as of this encounter Last Filed Vital Signs Vital Sign Reading Time Taken Comments Blood Pressure 129/73 10/11/2023 11:00 AM EST Pulse 81 10/11/2023 11:00 AM EST Temperature 37.3 ??C (99.1 ??F) 10/11/2023 10:[address] Respiratory Rate 15 10/11/2023 11:00 AM EST Oxygen Saturation 99% 10/11/2023 11:00 AM EST Inhaled Oxygen Concentration - - Weight 64.9 kg (143 lb) 10/11/2023 6:15 AM EST Height - - Body Mass Index 25.33 09/22/2023 9:12 AM EST documented in this encounter Discharge Instructions * Discharge Instructions* Chika Johnson MD - 10/11/2023 7:18 AM EST [facility] MD MIKE Kaur PA-C [address] [place] [address], [phone] Thank you for allowing us to care for you! It was a pleasure taking care of you during your surgeryat [facility]! Dr. Villeda and her team are always available for any questions or concerns after your surgery. As always, you can reach our staff during normal business hours by using the InflowControl experience to send us an email at: [email or web address] FOLLOW UP APPOINTMENTS Upon leaving the hospital, you should call [phone] during normal business hours to schedule follow-up appointments. You will need to be seen for the following: If you go home with a catheter, call to schedule a nurse visit in the office in 1-2 days Six-week follow-up with Yeni Farmer PA-C (Dr. Villeda's Physician St[facility] Lead Former) WHAT MEDICATIONS CAN I TAKE? After surgery you may resume your regular home medications. WHAT ARE MY POST SURGERY RESTRICTIONS? You can: Walk up/down steps (hold onto railing to avoid falls) Go for short walks on a smooth surface Ride as a passenger in the car Shower Do not: Do NOT lift anything heavier than 10 lbs (about the size of one gallon of milk) No cleaning/no laundry/no sweeping Do NOT sit in a bath tub/pool/ocean until your doctor tells you it???s ok Do NOT have vaginal intercourse until your doctor tells you it is permitted Do NOT insert anything into your vagina or rectum for 6 weeks, including tampons or suppositories Exception: If you were using vaginal estrogen prior to surgery, please resume this 1 week after surgery (it is safe to insert it into the vagina using a pea- sized amount on your finger; do not use plastic applicator!) Do NOT drive a car or heavy machinery until you are no longer taking narcotic pain medication and your pain is well-controlled so that you can slam on the brake if necessary Speak with your physician about any other restrictions and limitations. A FEW THINGS TO REMEMBER: You should discuss with your doctor when to return to work. It is normal to have a vaginal discharge with blood for up to 6 weeks after surgery. The discharge may appear as small amounts of bright red or dark brown blood. It can also become a yellow-green color. The amount of discharge should gradually decrease with time. Some of the stitches will dissolve over time. It is normal to see suture or knots come out of the vagina over the next few weeks as these dissolve and fall out. WHAT SHOULD I EAT? To decrease post-operative nausea, try to eat small frequent meals. Eat foods high in protein such as meat, fish, eggs, and dairy products. Consider taking a single multivitamin, which you can buy Oco. Drink lots of fluids - about EIGHT 8-oz glasses of water each day. CONSTIPATION It is normal not to have a bowel movement for 4-5 days after surgery. However, when you do have a bowel movement, we want you to have a regular, soft daily bowel movement. Upon discharge from the hospital you will be given prescriptions for stool softeners with instructions from your doctor. PLEASECONTINUE MIRALAX TWICE DAILY, AND ADD ADDITIONAL COLACE TWICE DAILY. IF YOU HAVE NOT HAD A BOWEL MOVEMENT IN 4-5 DAYS, ADD SENNA 1-2 TIMES DAILY NEEDED TO MAINTAIN SOFT BOWEL MOVEMENTS. Other waysto help promote soft bowel movements include: Prunes/apple/raisins or other high-fiber foods Metamucil or Citrucel: one heaping tablespoon in 8oz of water twice per day Milk of magnesia, to be taken at bedtime following the directions on the label Be sure to drink at least 8 glasses of water/fluids per day -If you have problems with constipation and no bowel movement for 5-7 days after surgery and you are uncomfortable or concerned-- please call the office. -AVOID the use of rectal suppositories or enemas. -Your first few bowel movements will likely be very runny. If this occurs, slowly decrease the colace to once a day or every other day for a week. Continue to decrease slowly until bowel movements remain soft but not runny. If you stop your stool softeners all at once, you may become very constipated. WHAT ABOUT PAIN MEDICATIONS? You will be sent home with ibuprofen 600 mg tablets (unless contraindicated) and stronger pain medications containing small amounts of narcotic pain killers. Some things to remember: Unless you have a medical condition that prohibits you from taking Motrin (ibuprofen) or NSAIDs (such as kidney disease, stomach ulcers, taking blood thinners, or other condition specified by your PCP) or Tylenol (acetaminophen) (such as active liver disease), pain can often be managed well by taking scheduled doses of Motrin (ibuprofen) and Tylenol rather than waiting for the pain to get worse. If you do not have any medical conditions that prohibit you from taking the above medications, we recommend taking these medications on a scheduled basis for the first week after surgery. For instance: You can take ibuprofen 600 mg every 6 hours and Tylenol 1000 mg every 6 hours (alternate by taking ibuprofen 600 mg, then 3 hours later take tylenol 1000 mg, then 3 hours later take ibuprofen 600 mg, and so on). DO NOT TAKE MORE THAN THE RECOMMENDED DOSES. DO NOT USE MORE THAN ONE NSAID AT A TIME (such as celecoxib (Celebrex), naproxyn (Naprosyn), ibuprofen (Motrin or Advil), aspirin, or other non-steroidal anti-inflammatory medication). If your narcotic pain medication contains acetaminophen (Tylenol), DO NOT take additional tylenol Take your pain medications when you first begin feeling discomfort. Don't wait until your pain is intense to take your medications. When used as directed, you will not become addicted to the pain medications. The narcotic pain medications we send you home with may cause nausea or constipation. As you heal from surgery, you may find that you feel better when you don't take those medications. If Tylenol or Motrin relieves the pain, use those medications instead. Don't drive while taking narcotic pain medications. HOW DO I TAKE CARE OF MY INCISION? Showers (NO tub baths) are preferred for 6 weeks after surgery. If you have an abdominal incision, it is ok for this to get wet, but do not soak in a tub. If the incision appears dirty or caked, you may clean it with hydrogen peroxide on a cotton swab. You may have small plastic bandages called Steri-strips across the incision. There is no need to worry if these fall off. If they begin to curl atthe edges, simply trim with scissors. If you have had vaginal surgery, showers (NO tub baths) are preferred for 6 weeks after surgery. You may use a mild soap (such as Dove sensitive skin) and water to GENTLY clean the OUTSIDE of the vagina. DO NOT douche, insert tampons, insert suppositories, or other vaginal creams/inserts after vaginal surgery. WHAT ABOUT THE BLADDER CATHETER? It is very common to go home from the hospital with a catheter in your bladder. The surgery your doctor performed tends to cause swelling around the opening to the bladder, making it difficult for you to pass urine. If this is the case, you will be given instructions in the hospital on the care of the catheter, and will be told when to come back to the office for catheter removal (usually within 1 to 7 days). It is not unusual for it to take a few weeks for your bladder to return to normal though. The nurse in the hospital will make sure you are comfortable with your catheter before you go home. After the catheter is removed, try to urinate on a regular basis. A good way to do this is to try to urinate every 3-4 hours during the day. By urinating on a scheduled basis you may prevent bladder spasms. You do not have to wake up during the night to do this drill. WHAT SHOULD I WATCH OUT FOR? There are several warning signs you should watch for: FEVER GREATER THAN 100.4??F LEG PAIN OR SWELLING SHORTNESS OF BREATH CHEST PAIN SHAKING CHILLS SEVERE PAIN NAUSEA WITH VOMITING PROBLEMS WITH YOUR INCISION SUCH REDNESS OR DISCHARGE VAGINAL BLEEDING HEAVIER THAN WHAT WAS A HEAVY MENSTRUAL CYCLE INCREASE IN VAGINAL DISCHARGE, ESPECIALLY WITH A STRONG ODOR INABILITY TO URINATE For questions or concerns, please call: (7:30 a.m. to 4:00 p.m. Wednesday-Wednesday) [facility] For non-life threatening emergencies only outside of normal business hours, please call the above number and follow prompts for the station cashier provider. Leave your full name with spelling AND your date of . The doctor will call you back as soon as possible. If you have not received a call back in30 minutes, please page the Doctor again For any life-threatening emergencies call 911. +++++++++++++++++++++++++++++++++++++++++++++++++++++++++++++++++++ [facility] Discharge Instructions - Following Anesthesia We appreciate the opportunity to care for you today! Here are a few reminders as you head home: A responsible adult, 18 years or older must be in attendance until tomorrow morning. Rest quietly today. May resume usual diet as tolerated or as directed by your surgeon. Do not drive or operate any machinery until tomorrow morning or as instructed. Do not make any legal or important decisions for the next 24 hours. Do not drink alcoholic beverages or take sleeping pills for 24 hours unless otherwise directed. If you received a nerve block for post-operative pain control, protect your blocked arm/leg. It is numb. Carefully pad your limb to prevent pressure sores and other injuries. Be careful with applyingcold/warm to the blocked limb. Numbness will alter the sensation of the limb and could damage your skin if you cannot correctly feel the temperature. If you have questions or concerns regarding your anesthesia experience, please call our office at . Get Well Soon! [facility] +++++++++++++++++++++++++++++++++++++++++++++++++++++++++++++++++++ documented in this encounter Medications at Time of Discharge ascorbic acid/vitamin E/biotin (HAIR, SKIN, NAILS WITH BIOTIN ORAL) Take 1 Tablet by mouth daily. Cholecalciferol, Vitamin D3, 50 mcg (2,000 unit) Oral Capsule Take 1 Capsule by mouth daily. cyanocobalamin, vitamin B-12, (VITAMIN B-12) 5,000 mcg/mL SL Drops Place 1 mL under the tongue daily. docusate sodium (COLACE) 100 mg Oral Capsule Take 1 Capsule by mouth 2 times daily. 60 Capsule 2 10/11/2023 estradioL (ESTRACE) 0.01 % (0.1 mg/gram) Vagl Cream Place vaginally two times a week. 04/16/2023 ibuprofen (ADVIL;MOTRIN) 600 mg Oral Tablet Take 1 Tablet by mouth every 6 hours as needed for Pain. 60 Tablet 1 10/11/2023 ondansetron (ZOFRAN-ODT) 4 mg Oral Tablet, Rapid Dissolve Take 1 Tablet by mouth every 6 hours as needed for Nausea. 30 Tablet 10/11/2023 polyethylene glycol (GLYCOLAX) 17 gram/dose Oral Powder Begin Miralax, 17 g (1 capful) PO mixed in your favorite drink once a day beginning 1 week prior to surgery, after surgery drink this twice a day for 2 weeks 595 g 10/04/2023 senna (SENOKOT) 8.6 mg Oral Tablet Take 1 Tablet by mouth daily as needed for Constipation. 30 Tablet 1 10/11/2023 traMADoL (ULTRAM) 50 mg Oral Tablet Take 1 Tablet by mouth every 6 hours as needed for Pain (surgery). 20 Tablet 10/11/2023 documented as of this encounter Ordered Prescriptions Prescription Sig Dispense Quantity Refills Last Filled Start Date End Date traMADoL (ULTRAM) 50 mg Oral Tablet Take 1 Tablet by mouth every 6 hours as needed for Pain (surgery). 20 Tablet 10/11/2023 senna (SENOKOT) 8.6 mg Oral Tablet Take 1 Tablet by mouth daily as needed for Constipation. 30 Tablet 1 10/11/2023 ondansetron (ZOFRAN-ODT) 4 mg Oral Tablet, Rapid Dissolve Take 1 Tablet by mouth every 6 hours as needed for Nausea. 30 Tablet 10/11/2023 ibuprofen (ADVIL;MOTRIN) 600 mg Oral Tablet Take 1 Tablet by mouth every 6 hours as needed for Pain. 60 Tablet 1 10/11/2023 docusate sodium (COLACE) 100 mg Oral Capsule Take 1 Capsule by mouth 2 times daily. 60 Capsule 2 10/11/2023 documented in this encounter Discharge Disposition Disposition Code Departure Means Destination Comment s Home or Self Nursing Home documented in this encounter H&P Notes * Mic Velazquez MD - 10/11/2023 6:37 AM EST Surgery H&P Chief complaint: Complete uterovaginal prolapse [N81.3] PMB (postmenopausal bleeding) [N95.0] Endometrial stripe increased [R93.89] DAVID (stress urinary incontinence, female) [N39.3] HPI: This is a 63 y.o. year old female patient who presents today for surgical treatment of the above problem. Scheduled for Procedure(s): Total Vaginal Hysterectomy, Bilateral Salpingectomy, Possible Right, left or Bilateral Oophorectomy, Uterosacral Ligament Suspension, Anterior Repair, Possible Posterior Repair, Placement of Retropubic Midurethral Mesh Sling, Cystoscopy . . . per Chika Johnson, * History & Physical Past Medical History: Diagnosis Date Arthritis Chronic low back pain Complete uterovaginal prolapse Constipation, chronic Endometrial stripe increased Insomnia PMB (postmenopausal bleeding) DAVID (stress urinary incontinence, female) Past Surgical History: Procedure Laterality Date TUBAL LIGATION No current facility-administered medications on file prior to encounter. Current Outpatient Medications on File Prior to Encounter Medication Sig Dispense Refill polyethylene glycol (GLYCOLAX) 17 gram/dose Oral Powder Begin Miralax, 17 g (1 capful) PO mixed in your favorite drink once a day beginning 1 week prior to surgery, after surgery drink this twice a day for 2 weeks 595 g 0 estradioL (ESTRACE) 0.01 % (0.1 mg/gram) Vagl Cream Place vaginally two times a week. See CAR FILLER Meds: No Known Allergies Social History Socioeconomic History Marital status: Single Spouse name: Not on file Number of children: Not on file Years of education: Not on file Highest education level: Not on file Occupational History Not on file Tobacco Use Smoking status: Never Smokeless tobacco: Never Vaping Use Vaping Use: Never used Substance and Sexual Activity Alcohol use: Never Drug use: Never Sexual activity: Not on file Other Topics Concern Not on file Social History Narrative Not on file Social Determinants of Health Financial Resource Strain: Not on file Food Insecurity: Not on file Transportation Needs: Not on file Physical Activity: Not on file Stress: Not on file Social Connections: Not on file Intimate Partner Violence: Not on file Housing Stability: Not on file Family History Problem Relation Age of Onset Other (Other) Mother bowel blockage caused Early Mother Hearing Loss Mother 53 Alzheimer's Disease Mother Early Father Heart Disease Father Stroke Father Asthma Father Anesth Problems Neg Hx Review of Systems Constitutional: Negative for fever. HENT: Negative for ear pain and sore throat. Eyes: Negative. Respiratory: Negative for cough and shortness of breath. Cardiovascular: Negative for chest pain. Denies Chest pain, dyspnea, palpitations, dizziness, lightheadedness, syncope or edema. Gastrointestinal: Negative for abdominal pain and vomiting. Genitourinary: Negative for dysuria. Musculoskeletal: Negative. Skin: Negative. Neurological: Negative for seizures and headaches. Psychiatric/Behavioral: Stable Vitals: 10/11/23 0632 BP: 159/76 Pulse: 76 Resp: 18 Temp: 97.8 ??F (36.6 ??C) SpO2: 97% Physical Exam Constitutional: General: She is not in acute distress. Appearance: She is obese. HENT: Head: Normocephalic. Mouth/Throat: Mouth: Mucous membranes are moist. Pharynx: Oropharynx is clear. Eyes: General: No scleral icterus. Pupils: Pupils are equal, round, and reactive to light. Neck: Vascular: No carotid bruit. Cardiovascular: Rate and Rhythm: Normal rate and regular rhythm. Pulmonary: Breath sounds: Normal breath sounds. Abdominal: General: Bowel sounds are normal. Palpations: Abdomen is soft. Tenderness: There is no abdominal tenderness. Musculoskeletal: Comments: Calves soft Skin: General: Skin is warm and dry. Neurological: Mental Status: She is alert and oriented to person, place, and time. Comments: Pt has equal motor facial exam Pt moves all extremities equal MARIANGEL, FROM eyes Alert Psychiatric: Mood and Affect: Mood normal. Behavior: Behavior normal. Relevant Labs and Imaging reviewed. Lab Results Component Value Date WBC 6.6 09/22/2023 HGB 13.4 09/22/2023 HCT 40.7 09/22/2023 PLT 311 09/22/2023 EKG 08/2023 from PCP scanned into media under H/P preop NSR, poor R wave progression Assessment: Complete uterovaginal prolapse [N81.3] PMB (postmenopausal bleeding) [N95.0] Endometrial stripe increased [R93.89] DAVID (stress urinary incontinence, female) [N39.3] Plan: Procedure(s): Total Vaginal Hysterectomy, Bilateral Salpingectomy, Possible Right, left or Bilateral Oophorectomy, Uterosacral Ligament Suspension, Anterior Repair, Possible Posterior Repair, Placement of Retropubic Midurethral Mesh Sling, Cystoscopy . . . per Chika Johnson, Adamaris Velazquez MD 10/11/23 documented in this encounter Procedure Notes * Chika Johnson MD - 10/11/2023 10:51 AM EST Images from the original note were not included. OPERATIVE NOTE Marguerite Martinez Ren October 11, 2023 Body mass index is 25.33 kg/m??. PRE-OP DIAGNOSIS: Complete uterovaginal prolapse [N81.3] PMB (postmenopausal bleeding) [N95.0] Endometrial stripe increased [R93.89] DAVID (stress urinary incontinence, female) [N39.3] POST-OP DIAGNOSIS: Complete uterovaginal prolapse [N81.3]PMB (postmenopausal bleeding) [N95.0]Endometrial stripe increased [R93.89]DAVID (stress urinary incontinence, female) [N39.3] PROCEDURE(S): Procedure(s): Total Vaginal Hysterectomy, RIGHT Salpingectomy, Uterosacral Ligament Suspension, Anterior Repair, Posterior Repair, ENTEROCELE REPAIR Placement of Retropubic Midurethral Mesh Sling, Cystoscopy, VAGINAL AND VULVAR BIOPSY . . . SURGEON(S): Surgeon(s) and Role: * Chika Johnson MD - Primary CARPENTER AND JOINER(S): OR staff ANESTHESIA: General SPECIMENS: ID Type Source Tests Collected by Time Destination 1 : vulvar biopsy Tissue Vulva PATHOLOGY TISSUE REQUEST Chika Johnson MD 10/11/2023 0801 2 : vaginal biopsy Tissue Vagina PATHOLOGY TISSUE REQUEST Chika Johnson MD 10/11/2023 0806 3 : CERVIX, UTERUS AND RIGHT FALLOPIAN TUBE Tissue Uterus PATHOLOGY TISSUE REQUEST Chika Johnson MD 10/11/2023 0856 IMPLANTS: Implant Name Model No. Serial No. Lot No. Slip Cover Operator LRB No. Used Action DESARA BLUE TV TRANSVAGINAL MESH SLING - [id number] [id number] SezWho N/A 1 Implanted EBL: 50 mL FINDINGS: EUA: NEFG, leukoplakia along the right labium minus, suspected hyperkeratosis due to friction from prolapse. 2 mm area of leukoplakia along proximal anterior vaginal wall consistent with hyperkeratosis due to friction. Complete procidentia. Intra-op: Normal appearing uterus, elongated cervix, normal bilateral fallopian tubes and ovaries. Intra-operative cystoscopy demonstrated normal appearing bladder mucosa and no concerning tumors, stones, lesions or foreign bodies were identified. No suture or injury present within the bladder or urethra. Normal appearing trigone with bilateral ureteral orifices. There was vigorous efflux of urine from the bilateral ureteral orifices throughout the case. Complications: None DISPOSITION: Taken to PACU in good condition INDICATIONS: Marguerite Martinez is a 63 y.o. female with stage III pelvic organ prolapse and DAVID desiring surgical correction. She was counseled on the risks, benefits and alternatives to surgery and written informed consent was obtained in the office. Please see office note for full details of counseling. DESCRIPTION OF PROCEDURE: The patient was brought to the operating room. Oral pyridium was previously administered in the pre-operative bay. General anesthesia was induced without difficulty. A time out was completed and confirmed the correct patient and procedure. She was placed in the dorsal lithotomy position in [facility]. She was prepped and draped in the normal sterile fashion. A Mathis catheter was placed in the bladder. First, small excisional left vulvar and vaginal biopsies of the leukoplakia noted above were taken and sent to pathology for routine processing. The vulvar biopsy incision was closed with a single 3-0 Vicryl [id number] suture and was noted to be hemostatic. The vaginal biopsy was made hemostatic with Bovie cautery. HYSTERECTOMY A weighted retractor was placed in the posterior vagina and the anterior vagina retracted with a Aliza retractor. 1% lidocaine with dilute epinephrine was injected circumferentially around the cervix which was grasped with two double- tooth tenaculums. A circumferential incision was made at the cervicovaginal junction and the posterior cul-de-sac was entered sharply. The uterosacral ligaments were clamped with Samir clamps, transected and suture-ligated with 0 Vicryl. Another Samir clamp was placed on each side, transected and suture- ligated to secure part of the cardinal ligament. The anterior vaginal wall was elevated and the bladder dissected away from the cervix and lower uterine segme nt. The anterior peritoneum was entered sharply and a Conover placed to elevate the bladder and ureters away from the operative field. Additional bites of tissue were taken bilaterally with the Heaneyclamp, each time transecting and suture-ligating with 0 Vicryl. Good hemostasis was noted. The remaining tissue at the uterine cornua was clamped with minimally curved Zeppelins on each side and the specimen excised with a scalpel. The pedicles were double suture ligated with 0-Vicryl, first using a free tie and then a transfixion suture. Good hemostasis was noted. The right fallopian tube was identified and followed to the fimbria using Olney graspers. The proximal portion of the tube and mesosalpinx were clamped, cut and the pedicle double suture ligated, first with a 2-0 Vicryl free tie followed by 2-0 Vicryl transfixion suture. The left fallopian tube was grasped with a Olney and gentle traction was placed on the tube, but the distal portion of the fallopian tube was more adherent high in the pelvis. The decision was made to leave this in situ. UTEROSACRAL LIGAMENT SUSPENSION The bowel was packed out of the pelvis using a Kerlix sponge and Breisky retractors were used to visualize the pelvic sidewalls. An Allis clamp was used to grasp the left uterosacral ligament at the vaginal mucosa. By elevating the clamp, the uterosacral ligament was palpable on the left side, 2 cmcephalad to the ischial spine. This area of the ligament was grasped with another Allis and two 0-PDS sutures were placed through the medial, intermediate portion of the ligament and held long. The same procedure was performed on the right side placing two 0-PDS sutures through the medial, intermediate portion of the uterosacral ligament, approximately 2 cm cephalad to the ischial spine. The Mathis catheter was then removed and cystoscopy performed with findings noted as described above. Tensionwas applied sequentially on all four uterosacral ligament sutures, and vigorous efflux was noted each time from the ipsilateral ureter. The bladder was drained and the Mathis catheter replaced. ANTERIOR REPAIR A midline anterior vaginal incision was then made from the bladder neck to the apex, after first injecting 1% lidocaine with dilute epinephrine. The anterior vaginal mucosa was elevated and the surrounding connective tissue dissected sharply and bluntly away from the overlying vaginal mucosa to thelevel of the pelvic floor muscles on each side. 2-0 Stratafix was then placed in a horizontal running fashion in two layers, plicating the anterior pubovesical fascia in the midline to reduce the cystocele bulge. The vaginal incision was then closed using 2-0 Vicryl suture in a running-locked fashion after trimming a small amount of vaginal mucosa bilaterally. Each uterosacral ligament suture was then , and one arm placed through the anterior vaginal cuff and one through the posterior vaginal cuff, incorporating fibromuscular tissue along the cuffedge. The remainder of the cuff was closed with 0-Vicryl figure of eight sutures. The patient was placed in steeper Trendelenburg and the suspension sutures were sequentially tied to elevate the vaginal apex into the pelvis, with adequate closure of the cuff and direct application of the cuff to the uterosacral ligaments. Good hemostasis was noted. Repeat cystoscopy was performed with normal findings as described above in findings. MIDURETHRAL SLING Two markings were made, each 1 fingerbreadth above the pubic symphysis and lateral to the midline. 1% lidocaine with dilute epinephrine was then injected under the skin at these markings, and along the superior margin of pubic bone in the retropubic space. The vaginal mucosa was then grasped 1 cm proximal to the urethral meatus in the midline and just distal to the level of the bladder neck. Injectable saline was then injected along the midurethral area and underneath the inferior margin of thepubic bone bilaterally. A 2 cm vertical incision under the midurethra was made with a scalpel. Sharp and blunt dissection was used to dissect the vaginal tissue away from the underlying periurethral tissue on both sides to the level of the pubic bones. The catheter guide was inserted and used to retract the bladder and urethra to the contralateral side during insertion of the sling. The right Laura transvaginal retropubic trocar was then inserted through the vaginal incision, under the pubic bone and out the ipsilateral suprapubic incision. The trocar was removed but the introducer sheath was left in place. The left side of the sling was inserted in a similar fashion. With the blue introducer sheaths in place, cystoscopy was performed to confirm no injury to the bladder, ureters or urethra. The bladder was drained and Mathis catheter was replaced. The introducer sheaths were then pulled through the suprapubic incisions and the sling was adjustedto lie under the midurethra without tension. The sling was held in place in the midline using a hemostat to provide countertraction, and the sterile sheaths and sutures were removed. Excess sling wastrimmed, and the suprapubic incisions were closed with Dermabond skin glue. The vaginal incision was closed with 2-0 Vicryl in a running fashion. Good hemostasis was noted. POSTERIOR & ENTEROCELE REPAIR A venecia-shaped incision was then made over the distal posterior vaginal wall and upper perineal body after first injecting 1% lidocaine with dilute epinephrine. The intervening vaginal and perinealepithelium was excised. The distal posterior vaginal mucosa was elevated and the rectovaginal fascial tissues and perirectal tissues were dissected sharply away from the overlying vaginal mucosa to the level of the pelvic floor muscles on each side. The posterior vaginal incision was extended in the midline to the upper vagina. The dissection was continued throughout the posterior vaginal compartment up to the cuff. The enterocele sac was reduce with two 2-0 Vicryl horizontal reefing sutures. The rectovaginal septum was then plicated in the midline using 2-0 Stratafix to reduce the rectocele bulge. The vaginal incision was then closed after trimming a small amount of vagina bilaterally using a running 2-0 Vicryl suture to the vestibular fossa. The perineal body was reinforced using two int errupted 0 Vicryl sutures, reapproximating the transverse perineal muscles and bulbospongiosus muscles in the midline. The perineal skin was closed with the remaining 2-0 Vicryl suture in a running fashion. A rectal exam confirmed there was no evidence of penetration of the rectum by any of the sutures. All counts were correct times two. The patient tolerated the procedure without difficulty. She was taken to the recovery room in good condition. Chika Johnson MD Date: 10/11/2023 * Chika Johnson MD - 10/11/2023 10:45 AM EST [facility] OPERATIVE/PROCEDURE NOTE Margueriet Martinez Ren October 11, 2023 Body mass index is 25.33 kg/m??. PRE-OP DIAGNOSIS: Complete uterovaginal prolapse [N81.3] PMB (postmenopausal bleeding) [N95.0] Endometrial stripe increased [R93.89] DAVID (stress urinary incontinence, female) [N39.3] POST-OP DIAGNOSIS: Complete uterovaginal prolapse [N81.3]PMB (postmenopausal bleeding) [N95.0]Endometrial stripe increased [R93.89]DAVID (stress urinary incontinence, female) [N39.3] PROCEDURE(S): Procedure(s): Total Vaginal Hysterectomy, RIGHT Salpingectomy, Uterosacral Ligament Suspension, Anterior Repair, Posterior Repair, ENTEROCELE REPAIR Placement of Retropubic Midurethral Mesh Sling, Cystoscopy, VAGINAL AND VULVAR BIOPSY . . . SURGEON(S): Surgeon(s) and Role: * Chika Johnson MD - Primary CARPENTER AND JOINER(S): OR staff ANESTHESIA: General SPECIMENS: ID Type Source Tests Collected by Time Destination 1 : vulvar biopsy Tissue Vulva PATHOLOGY TISSUE REQUEST Chika Johnson MD 10/11/2023 0801 2 : vaginal biopsy Tissue Vagina PATHOLOGY TISSUE REQUEST Chika Johnson MD 10/11/2023 0806 3 : CERVIX, UTERUS AND RIGHT FALLOPIAN TUBE Tissue Uterus PATHOLOGY TISSUE REQUEST Chika Johnson MD 10/11/2023 0856 ESTIMATED BLOOD LOSS (mls): 50 *EBL MUST be documented as a numeric value FINDINGS: EUA: NEFG, leukoplakia along the right labium minus, suspected hyperkeratosis due to friction from prolapse. 2 mm area of leukoplakia along proximal anterior vaginal wall consistent with hyperkeratosis due to friction. Complete procidentia. Intra-op: Normal appearing uterus, elongated cervix, normal bilateral fallopian tubes and ovaries. Intra-operative cystoscopy demonstrated normal appearing bladder mucosa and no concerning tumors, stones, lesions or foreign bodies were identified. No suture or injury present within the bladder or urethra. Normal appearing trigone with bilateral ureteral orifices. There was vigorous efflux of urine from the bilateral ureteral orifices throughout the case. OTHER INFO: none DISPOSITION/POST PROC COURSE: stable PACU Chika Johnson MD Date: 10/11/2023 documented in this encounter Nursing Notes * Carolina Paris RN - 10/11/2023 3:43 PM EST Patient's family request that we get her up in chair and try to get her going so she can go home.Patient assisted to chair without difficulty Peanut butter crackers given * Carolina Paris RN - 10/11/2023 2:29 PM EST A note was sent to Dr Caballero about patient's family wanting her to stay over night. * Carolina Paris RN - 10/11/2023 1:31 PM EST #[id number] lithuanian mathis inserted with 10ml balloon 350 ml of clear orange urine returned States her nauseais better documented in this encounter Miscellaneous Notes * Utilization Review Notes - Shelly Moreno RN - 10/11/2023 4:14 PM EST Admit as OBS 10/11/23 Admit review Complete uterovaginal prolapse, Post operative state 10/11/23 Total Vaginal Hysterectomy, RIGHT Salpingectomy, Uterosacral Ligament Suspension, Anterior Repair, Posterior Repair, ENTEROCELE REPAIR Placement of Retropubic Midurethral Mesh Sling, Cystoscopy, VAGINAL AND VULVAR BIOPSY DC order on chart * Informed Consent Note - Chika Johnson MD - 10/07/2023 1:10 PM EST [facility] INFORMED CONSENT NOTE Patient: Marguerite Martinez Date: October 07, 2023 PROCEDURE(S): Total Vaginal Hysterectomy, Bilateral Salpingectomy, Possible Right, left or Bilateral Oophorectomy, Uterosacral Ligament Suspension, Anterior Repair, Possible Posterior Repair, Placement of Retropubic Midurethral Mesh Sling, Cystoscopy . . . I attest that the patient/patient patient portal representative has been counseled as to the potential benefits, risks, and side effects to the planned surgical treatment, including the likelihood of success and potential problems that might occur during recuperation. The patient/patient patient portal representative has also been counseled as to the alternatives to this intervention, including possible results of not having this intervention performed and benefits and risks of these alternatives. If a non-autologous graft is planned, I have additionally discussed the risks, benefits, and alternatives to the use of such grafts. The patient/patient patient portal representative has given their consent to proceed with this intervention after having their questions sufficiently answered. [employer] used: sandra Johnson MD Date: 10/07/2023 documented in this encounter Plan of Treatment Not on file documented as of this encounter Procedures Procedure Name Priority Date/Time Associated Diagnosis Comments ADMIT Routine 10/11/2023 3:23 PM EST PATHOLOGY TISSUE REQUEST Routine 10/11/2023 8:01 AM EST Complete uterovaginal prolapse PMB (postmenopausal bleeding) Endometrial stripe increased DAVID (stress urinary incontinence, female) EXCISION LESION OF VULVA / EXTERNAL VAGINA 10/11/2023 7:30 AM EST Complete uterovaginal prolapse PMB (postmenopausal bleeding) Endometrial stripe increased DAVID (stress urinary incontinence, female) Special Needs sk VAGINAL BIOPSY 10/11/2023 7:30 AM EST Complete uterovaginal prolapse PMB (postmenopausal bleeding) Endometrial stripe increased DAVID (stress urinary incontinence, female) Special Needs sk URETHROPEXY USING TENSION FREE VAGINAL TAPE VIA RETROPUBIC SPACE WITH CYSTOSCOPY 10/11/2023 7:30 AM EST Complete uterovaginal prolapse PMB (postmenopausal bleeding) Endometrial stripe increased DAVID (stress urinary incontinence, female) Special Needs sk UTEROSACRAL LIGAMENT SUSPENSION 10/11/2023 7:30 AM EST Complete uterovaginal prolapse PMB (postmenopausal bleeding) Endometrial stripe increased DAVID (stress urinary incontinence, female) Special Needs sk ANTERIOR AND POSTERIOR REPAIR (CYSTOCELE AND RECTOCELE REPAIR) 10/11/2023 7:30 AM EST Complete uterovaginal prolapse PMB (postmenopausal bleeding) Endometrial stripe increased DAVID (stress urinary incontinence, female) Special Needs sk VAGINAL HYSTERECTOMY REMOVAL OF SINGLE FALLOPIAN TUBE 10/11/2023 7:30 AM EST Complete uterovaginal prolapse PMB (postmenopausal bleeding) Endometrial stripe increased DAVID (stress urinary incontinence, female) Special Needs sk documented in this encounter Results * PATHOLOGY TISSUE REQUEST (10/11/2023 8:01 AM EST) CASE REPORT Surgical Pathology ?Case: [id number] ? Authorizing Provider: ??Chika Johnson MD Collected: ? 10/11/2023 0801 ? Ordering Location: ? [facility] ?Received: ?10/11/2023 1139 ? Pathologist: ? Bonilla, Patito Villa, ? MD ? Specimens: ?? A) - Vulva, vulvar biopsy ? B) - Vagina, vaginal biopsy ? C) - Uterus, CERVIX, UTERUS AND RIGHT FALLOPIAN TUBE ? 10/16/2023 3:16 PM EST [facility] FINAL DIAGNOSIS A. Vulvar biopsy : - Superficial fragments of acanthotic hyperkeratotic squamous epithelium. - Negative for squamous dysplasia. B. Vaginal biopsy: - Acanthotic hyperkeratotic squamous mucosa with focal subepithelial lichenoid chronic inflammation. - Negative for squamous dysplasia. C. Uterus cervix and right fallopian tube, hysterectomy with right salpingectomy: - Cervix - mucosa with squamous acanthosis, hyperparakeratosis , ulceration and area of squamous atypia adjacent to ulceration, favor reactive atypia. See comment. - Endometrium - inactive endometrium with benign endometrial polyp. - Myometrium - focal adenomyosis. - Fallopian tube - no significant histopathologic abnormality 10/16/2023 3:16 PM [facility] ENT Part A lacks significant subepithelial tissue to evaluate for subepithelial sclerosis changes or inflammation. Part C- A block in part C [C2] were an ulceration is noted and adjacent cervical mucosa atypia is seen is stained with: p16 (negative), p53 ( wild patchy staining), and ki67 ( increased staining, but felt to be related to inflamation associated with the tissue). The focus of interest is felt to be reactive cervical atypia. Part A and B with immunostains and part C2 with immunostains is reviewed in consult with agreement./DA 10/16/2023 3:16 PM [facility] GROSS DESCRIPTION A. Received in formalin in a container labeled with the patient's name, MRN, and vulvar biopsy, is a 0.7 x 0.4 x 0.1 cm ordoñez-white and irregular tissue fragment. The specimen is inked blue, bisected, and entirely submitted in A1. PARAG Moncada PA ([facility]) 10/12/2023 9:55 AM B. Received in formalin in a container labeled the patient's name, MRN, and vaginal biopsy, is a 0.8 x 0.2 x 0.2 cm ordoñez-white and linear tissue fragment. The specimen is inked blue, bisected, and entirely submitted in B1. PARAG Moncada PA ([facility]) 10/12/2023 9:55 AM C. Received in formalin, in a container labeled with the patient's name, hospital number, and CERVIX, UTERUS AND RIGHT FALLOPIAN TUBE , is a 25 g trimmed weight, 7.2 cm superior to inferior x 2.5 cm cornu to cornu x 2.0 cm anterior to posterior uterus and cervix specimen. The serosa is ordoñez-pink, smooth, and glistening. The ordoñez-pink 3.4 x 2.6 cm (12:00 to 6:00/3:00 to 9:00) ectocervix displays a 0.5 cm slit-like cervical os. The ordoñez-pink endocervical canal is corrugated and has multiple Nabothian cysts. The 3.0 x 1.3 cm triangular endometrial cavity is lined by ordoñez-pink and glistening endometrium measuring 0.1 cm in thickness. Identified on the anterior fundus of the endometrial cavity is a 1.2 x 1.1 x 0.5 cm ordoñez-pink polyp which appears confined to the endometrium. The ordoñez-pink myometrium is minimally and measures 0.6-1.0 cm in thickness. Also present the container is a detached ordoñez-pink right fimbriated fallopian tube segment, 2.4 cm in length by 0.4 cm in diameter. Sectioning reveals unremarkable cut surfaces. Senior Infrastructure Engineer sections are submitted as follows: C1: Anterior endoectocervix C2: Posterior endoectocervix C3: Anterior endomyometrium, full-thickness C4-C5: Anterior endomyometrium to include entire polyp C6: Posterior endomyometrium, full-thickness C7: Entire detached fallopian tube cross-sections and bisected fimbriated end PARAG Moncada,FILIBERTO ([facility]) 10/12/2023 9:55 AM 10/16/2023 3:16 PM EST [facility] MICROSCOPIC DESCRIPTION Microscopic examination is performed and the findings corroborate the diagnosis. 10/16/2023 3:16 PM EST [facility] SPECIAL STAINS Part A and B - p16 ( negative), p53 ( wild patchy) ,ki67 ( not increased). 10/16/2023 3:16 PM [facility] EMBEDDED IMAGES 10/16/2023 3:16 PM [facility] Tissue SPECIMEN FROM VULVA / Unknown 10/11/2023 8:01 AM EST 10/11/2023 11:39 AM EST Tissue specimen (specimen) SPECIMEN FROM VAGINA / Unknown 10/11/2023 8:06 AM EST 10/11/2023 11:39 AM EST Tissue specimen (specimen) UTERINE STRUCTURE / Unknown 10/11/2023 8:56 AM EST 10/11/2023 11:39 AM EST us Chika Johnson MD PATHOLOGY ORDERABLES Fi nal Result [facility] [address] [place] [address] [facility] [address] [place] [address] [id number] documented in this encounter Visit Diagnoses Diagnosis Complete uterovaginal prolapse- Primary Uterovaginal prolapse, complete Complete uterovaginal prolapse Uterovaginal prolapse, complete PMB (postmenopausal bleeding) Postmenopausal bleeding DAVID (stress urinary incontinence, female) Female stress incontinence Endometrial stripe increased Nonspecific (abnormal) findings on radiological and other examination of genitourinary organs PMB (postmenopausal bleeding) Postmenopausal bleeding DAVID (stress urinary incontinence, female) Female stress incontinence Complete uterovaginal prolapse Uterovaginal prolapse, complete PMB (postmenopausal bleeding) Postmenopausal bleeding Endometrial stripe increased Nonspecific (abnormal) findings on radiological and other examination of genitourinary organs DAVID (stress urinary incontinence, female) Female stress incontinence documented in this encounter Admitting Diagnoses Diagnosis Complete uterovaginal prolapse Uterovaginal prolapse, complete PMB (postmenopausal bleeding) Postmenopausal bleeding DAVID (stress urinary incontinence, female) Female stress incontinence Endometrial stripe increased Nonspecific (abnormal) findings on radiological and other examination of genitourinary organs Post-operative state Other postprocedural status documented in this encounter Administered Medications Inactive Administered Medications - up to 1 most recent administrations Medication Order MAR Action Action Date Dose Rate Site acetaminophen (TYLENOL) tablet 1,000 mg 1,000 mg, Oral, PREPROCEDURE, 1 dose, Starting on Wed10/11/23 at 0613, Until Wed10/11/23 at 0656, Coanalgesic, Do not give if patient received acetaminophen within the last 6 hours Maximum adult dose of acetaminophen is 4000 mg from all sources in 24 hours., Pre-op (Holding/SDS Meds) Given 10/11/2023 6:56 AM EST 1,000 mg aprepitant (EMEND) capsule 40 mg 40 mg, Oral, ONCE PREPROCEDURE, 1 dose, On Wed10/11/23 at 0615, Pre-op (Holding/SDS Meds) Given 10/11/2023 6:56 AM EST 40 mg dimenhyDRINATE (DRAMAMINE) injection 12.5-50 mg 12.5-50 mg, Intravenous, PRN, Starting on Wed10/11/23 at 1039, Until Wed10/11/23 at 1838, Nausea, Second Line Antiemetic, For nausea unrelieved by pre-op or other antiemetic. Begin with lowest dose unless otherwise directed. Give remainder of dose if nausea unrelieved in 20 minutes. May give total of two doses if needed., PACU droPERidol (INAPSINE) injection 0.625 mg 0.625 mg, Intravenous, PRN, Starting on Wed10/11/23 at 1039, Until Wed10/11/23 at 1838, Nausea, If unable to give zofran. Give second dose if nausea unrelieved in 10 minutes. May give total of two doses if needed., PACU Given 10/11/2023 1:59 PM EST 0.625 mg fentaNYL (SUBLIMAZE) injection 50 mcg 50 mcg, Intravenous, EVERY 5 MIN PRN, Starting on Wed10/11/23 at 1039, Until Wed10/11/23 at 1838, Pain, For initial pain. Maximum dose not to exceed 100 mcg., PACU Given 10/11/2023 11:51 AM EST 50 mcg gelatin adsorbable (GELFOAM) 100 sponge PRN, Starting on Wed10/11/23 at 1000, Until Wed10/11/23 at 1635, Intra-op Given 10/11/2023 10:00 AM EST 1 Each Vagina granisetron (KYTRIL) injection 1 mg 1 mg, Intravenous, ONCE PREPROCEDURE, 1 dose, On Wed10/11/23 at 0615, Pre-op (Holding/[facility] Meds) Given 10/11/2023 6:56 AM EST 1 mg HYDROmorphone (DILAUDID) injection 0.25 mg 0.25 mg, Intravenous, EVERY 10 MIN PRN, Starting on Wed10/11/23 at 1039, Until Wed10/11/23 at 1838, Breakthrough Pain, Do not exceed 2 mg in one hour unless otherwise ordered by the Anesthesia Coordinator For pain unrelieved by fentanyl or oral opioid, PACU ketorolac (TORADOL) injection 15 mg 15 mg, Intravenous, ONCE, 1 dose, On Wed10/11/23 at 1515, For IV Administration: Give undiluted over at least 15 seconds. Maximum IV dose is 30mg. For IM Administration: Give undiluted, slowly and deeply into the muscle. Given 10/11/2023 3:27 PM EST 15 mg lactated ringers infusion Intravenous, at 100 mL/hr, PREPROCEDURE CONTINUOUS, Starting on Wed10/11/23 at 0613, Until Wed10/11/23 at 2041, To be given in SDS/Pre-op Holding Area, Pre-op (Holding/SDS Meds) New Bag 10/11/2023 1:12 PM EST 100 mL/hr lactated Ringers irrigation solution PRN, Starting on Wed10/11/23 at 0931, Until Wed10/11/23 at 1635, Intra-op Given 10/11/2023 9:31 AM EST 1,000 mL Other lidocaine-EPINEPHrine 1 %-1:100,000 injection PRN, Starting on Wed10/11/23 at 0831, Until Wed10/11/23 at 1635, Intra-op Given 10/11/2023 8:31 AM EST 30 mL Other meperidine (DEMEROL) injection (PF) 12.5 mg 12.5 mg, Intravenous, ONCE PRN, 1 dose, Starting on Wed10/11/23 at 1039, Until Wed10/11/23 at 204, Shivering, Shivering, unless otherwise ordered by Anesthesia Coordinator, PACU ondansetron (ZOFRAN) injection 4 mg 4 mg, Intravenous, ONCE PRN, 1 dose, Starting on Wed10/11/23 at 1039, Until Wed10/11/23 at 1259, Nausea, Do not give if patient received granisetron (Kytril) or ondansetron (Zofran) within 4 hours., PACU Given 10/11/2023 12:59 PM EST 4 mg oxyCODONE (ROXICODONE) immediate release tablet 5 mg 5 mg, Oral, EVERY 1 HOUR PRN, Starting on Wed10/11/23 at 1039, Until Wed10/11/23 at 1838, Pain, When tolerating oral intake. Maximum dose not to exceed 10 mg unless otherwise directed by the Anesthesia Coordinator., PACU Given 10/11/2023 1:43 PM EST 5 mg phenazopyridine (PYRIDIUM) tablet 200 mg 200 mg, Oral, ONCE, 1 dose, On Wed10/11/23 at 0615, 1 tab po when patient is checked in with small sip of water., Pre-op (Nursing), Dx: 1. Complete uterovaginal prolapse 2. PMB (postmenopausal bleeding) 3. DAVID (stress urinary incontinence, female)Indications:Complete uterovaginal prolapse,PMB (postmenopausal bleeding),DAVID (stress urinary incontinence, female) Given 10/11/2023 6:56 AM EST 200 mg pregabalin (LYRICA) capsule 75 mg 75 mg, Oral, PREPROCEDURE, 1 dose, Starting on Wed10/11/23 at 0613, Until Wed10/11/23 at 0656, Other, Coanalgesic, Pre-op (Holding/SDS Meds) Given 10/11/2023 6:56 AM EST 75 mg promethazine (PHENERGAN) 12.5 mg in sodium chloride 0.9% 10 mL injection 12.5 mg, Intravenous, PRN, Starting on Wed10/11/23 at 1039, Until Wed10/11/23 at 1838, Nausea, Third Line Antiemetic, For nausea unrelieved by droperidol or pre-op antiemetic. Begin with lowest dose unless otherwise directed. Give remainder of dose if nausea unrelieved in 20 minutes. Not to exceed 25 mg in one hour unless otherwise ordered by Anesthesia Coordinator. VESICANT , PACU promethazine (PHENERGAN) 6.25 mg in sodium chloride 0.9% 10 mL injection 6.25 mg, Intravenous, PRN, Starting on Wed10/11/23 at 1039, Until Wed10/11/23 at 1838, Nausea, Third Line Antiemetic, For nausea unrelieved by droperidol or pre-op antiemetic. Begin with lowest dose unless otherwise directed. Give remainder of dose if nausea unrelieved in 20 minutes. Not to exceed 25 mg in one hour unless otherwise ordered by Anesthesia Coordinator. VESICANT , PACU sodium chloride 0.9 % irrigation PRN, Starting on Wed10/11/23 at 0831, Until Wed10/11/23 at 1635, Intra-op Given 10/11/2023 8:31 AM EST 500 mL Other sodium chloride 0.9% injection/flush solution PRN, Starting on Wed10/11/23 at 0831, Until Wed10/11/23 at 1635, Intra-op Given 10/11/2023 8:31 AM EST 5.5 mL Other documented in this encounter Active and Recently Administered Medications Times are shown in EST. Scheduled Medication Order 10/09/2023 10/10/2023 10/11/2023 aprepitant (EMEND) capsule 40 mg (COMPLETED) 40 mg, Oral, ONCE PREPROCEDURE, 1 dose, On Wed10/11/23 at 0615, Pre-op (Holding/SDS Meds) 0656 (Given - Provid er: Lisbet Neal RN) ceFAZolin (ANCEF) IVPB 2 g (COMPLETED) 2 g, Intravenous, ONCE PREPROCEDURE, 1 dose, On Wed10/11/23 at 0615, Administer over 30 Minutes, Give 30 minutes prior to procedure. For patients weighing less than (<) 120 kg., Reason for Therapy: Surgical Prophylaxis, Pre-op (Antibiotic), Dx: 1. Complete uterovaginal prolapse 2. PMB (postmenopausal bleeding) 3. DAVID (stress urinary incontinence, female) 0732 (Given - Provid er: Leigh Ann Hernandes CRNA) granisetron (KYTRIL) injection 1 mg (COMPLETED) 1 mg, Intravenous, ONCE PREPROCEDURE, 1 dose, On Wed10/11/23 at 0615, Pre-op (Holding/SDS Meds) 0656 (Given - Provid er: Lisbet Neal RN) ketorolac (TORADOL) injection 15 mg (COMPLETED) 15 mg, Intravenous, ONCE, 1 dose, On Wed10/11/23 at 1515, For IV Administration: Give undiluted over at least 15 seconds. Maximum IV dose is 30mg. For IM Administration: Give undiluted, slowly and deeply into the muscle. 1527 (Given - Provid er: Carolina Paris RN) phenazopyridine (PYRIDIUM) tablet 200 mg (COMPLETED) 200 mg, Oral, ONCE, 1 dose, On Wed10/11/23 at 0615, 1 tab po when patient is checked in with small sip of water., Pre-op (Nursing), Dx: 1. Complete uterovaginal prolapse 2. PMB (postmenopausal bleeding) 3. DAVID (stress urinary incontinence, female) 0656 (Given - Provid er: Lisbet Neal RN) PRN Medication Order 10/09/2023 10/10/2023 10/11/2023 acetaminophen (TYLENOL) tablet 1,000 mg (COMPLETED) 1,000 mg, Oral, PREPROCEDURE, 1 dose, Starting on Wed10/11/23 at 0613, Until Wed10/11/23 at 0656, Coanalgesic, Do not give if patient received acetaminophen within the last 6 hours Maximum adult dose of acetaminophen is 4000 mg from all sources in 24 hours., Pre-op (Holding/SDS Meds) 0656 (Given - Provid er: Lisbet Neal RN) dimenhyDRINATE (DRAMAMINE) injection 12.5-50 mg 12.5-50 mg, Intravenous, PRN, Starting on Wed10/11/23 at 1039, Until Wed10/11/23 at 1838, Nausea, Second Line Antiemetic, For nausea unrelieved by pre-op or other antiemetic. Begin with lowest dose unless otherwise directed. Give remainder of dose if nausea unrelieved in 20 minutes. May give total of two doses if needed., PACU droPERidol (INAPSINE) injection 0.625 mg 0.625 mg, Intravenous, PRN, Starting on Wed10/11/23 at 1039, Until Wed10/11/23 at 1838, Nausea, If unable to give zofran. Give second dose if nausea unrelieved in 10 minutes. May give total of two doses if needed., PACU 1359 (Given - Provid er: Carolina Paris RN) fentaNYL (SUBLIMAZE) injection 50 mcg 50 mcg, Intravenous, EVERY 5 MIN PRN, Starting on Wed10/11/23 at 1039, Until Wed10/11/23 at 1838, Pain, For initial pain. Maximum dose not to exceed 100 mcg., PACU 1151 (Given - Provid er: Krista Tanner RN) gelatin adsorbable (GELFOAM) 100 sponge (CANCELED) PRN, Starting on Wed10/11/23 at 1000, Until Wed10/11/23 at 1635, Intra-op 1000 (Given - Provid er: Chika Johnson MD) HYDROmorphone (DILAUDID) injection 0.25 mg 0.25 mg, Intravenous, EVERY 10 MIN PRN, Starting on Wed10/11/23 at 1039, Until Wed10/11/23 at 1838, Breakthrough Pain, Do not exceed 2 mg in one hour unless otherwise ordered by the Anesthesia Coordinator For pain unrelieved by fentanyl or oral opioid, PACU lactated ringers infusion Intravenous, at 100 mL/hr, PREPROCEDURE CONTINUOUS, Starting on Wed10/11/23 at 0613, Until Wed10/11/23 at 2041, To be given in SDS/Pre-op Holding Area, Pre-op (Holding/SDS Meds) 0656 (New Bag - Prov ider: Lisbet Neal, SHERLEY)0729 (IV Paused - Provider: Leigh Ann Hernandes CRNA - Comment: Switch to gravity)0730 (IV Restarted - Provider: Leigh Ann Hernandes CRNA)0910 (New Bag - Provider: Leigh Ann Hernandes CRNA)0956 (Anesthesia Volume Adjustment - Provider: Leigh Ann Hernandes CRNA)1019 (Anesthesia Volume Adjustment - Provider: Leigh Ann Hernandes CRNA)1312 (New Bag - Provider: Carolina Paris RN)2041 (Due: Stopped) lactated Ringers irrigation solution (CANCELED) PRN, Starting on Wed10/11/23 at 0931, Until Wed10/11/23 at 1635, Intra-op 0931 (Given - Provid er: Chika Johnson MD - Comment: TO CYSTO TUBING FOR PRN USE) lidocaine-EPINEPHrine 1 %-1:100,000 injection (CANCELED) PRN, Starting on Wed10/11/23 at 0831, Until Wed10/11/23 at 1635, Intra-op 0831 (Given - Provid er: Chika Johnson MD) meperidine (DEMEROL) injection (PF) 12.5 mg 12.5 mg, Intravenous, ONCE PRN, 1 dose, Starting on Wed10/11/23 at 1039, Until Wed10/11/23 at 2041, Shivering, Shivering, unless otherwise ordered by Anesthesia Coordinator, PACU ondansetron (ZOFRAN) injection 4 mg (COMPLETED)(Linked Group 1) 4 mg, Intravenous, ONCE PRN, 1 dose, Starting on Wed10/11/23 at 1039, Until Wed10/11/23 at 1259, Nausea, Do not give if patient received granisetron (Kytril) or ondansetron (Zofran) within 4 hours., PACU 1259 (Given - Provid er: Carolina Paris, SHERLEY) oxyCODONE (ROXICODONE) immediate release tablet 5 mg 5 mg, Oral, EVERY 1 HOUR PRN, Starting on Wed10/11/23 at 1039, Until Wed10/11/23 at 1838, Pain, When tolerating oral intake. Maximum dose not to exceed 10 mg unless otherwise directed by the Anesthesia Coordinator., PACU 1206 (Given - Provid er: Krista Tanner RN)1343 (Given - Provider: Carolina Paris RN) pregabalin (LYRICA) capsule 75 mg (COMPLETED) 75 mg, Oral, PREPROCEDURE, 1 dose, Starting on Wed10/11/23 at 0613, Until Wed10/11/23 at 0656, Other, Coanalgesic, Pre-op (Holding/SDS Meds) 0656 (Given - Provid er: Lisbet Neal RN) promethazine (PHENERGAN) 12.5 mg in sodium chloride 0.9% 10 mL injection(Linked Group 2) 12.5 mg, Intravenous, PRN, Starting on Wed10/11/23 at 1039, Until Wed10/11/23 at 1838, Nausea, Third Line Antiemetic, For nausea unrelieved by droperidol or pre-op antiemetic. Begin with lowest dose unless otherwise directed. Give remainder of dose if nausea unrelieved in 20 minutes. Not to exceed 25 mg in one hour unless otherwise ordered by Anesthesia Coordinator. VESICANT , PACU promethazine (PHENERGAN) 6.25 mg in sodium chloride 0.9% 10 mL injection(Linked Group 2) 6.25 mg, Intravenous, PRN, Starting on Wed10/11/23 at 1039, Until Wed10/11/23 at 1838, Nausea, Third Line Antiemetic, For nausea unrelieved by droperidol or pre-op antiemetic. Begin with lowest dose unless otherwise directed. Give remainder of dose if nausea unrelieved in 20 minutes. Not to exceed 25 mg in one hour unless otherwise ordered by Anesthesia Coordinator. VESICANT , PACU sodium chloride 0.9 % irrigation (CANCELED) PRN, Starting on Wed10/11/23 at 0831, Until Wed10/11/23 at 1635, Intra-op 0831 (Given - Provid er: Chika Johnson MD - Comment: TO STERILE FIELD FOR PRN USE) sodium chloride 0.9% injection/flush solution (CANCELED) PRN, Starting on Wed10/11/23 at 0831, Until Wed10/11/23 at 1635, Intra-op 0831 (Given - Provid er: Chika Johnson MD) Linked Groups Order Group 1: ondansetron (ZOFRAN) injection 4 mg (COMPLETED)Jump to med 4 mg, Intravenous, ONCE PRN, 1 dose, Starting on Wed10/11/23 at 1039, Until Wed10/11/23 at 1259, Nausea, Do not give if patient received granisetron (Kytril) or ondansetron (Zofran) within 4 hours., PACU Or ondansetron (ZOFRAN-ODT) disintegrating tablet 8 mg (COMPLETED) 8 mg, Oral, ONCE PRN, 1 dose, Starting on Wed10/11/23 at 1039, Until Wed10/11/23 at 1259, Nausea, Do not give if patient received granisetron (Kytril) or ondansetron (Zofran) within 4 hours., PACU Group 2: promethazine (PHENERGAN) 6.25 mg in sodium chloride 0.9% 10 mL injectionJump to med 6.25 mg, Intravenous, PRN, Starting on Wed10/11/23 at 1039, Until Wed10/11/23 at 1838, Nausea, Third Line Antiemetic, For nausea unrelieved by droperidol or pre- op antiemetic. Begin with lowest dose unless otherwise directed. Give remainder of dose if nausea unrelieved in 20 minutes. Not to exceed 25 mg in one hour unless otherwise ordered by Anesthesia Coordinator. VESICANT , PACU Or promethazine (PHENERGAN) 12.5 mg in sodium chloride 0.9% 10 mL injectionJump to med 12.5 mg, Intravenous, PRN, Starting on Wed10/11/23 at 1039, Until Wed10/11/23 at 1838, Nausea, Third Line Antiemetic, For nausea unrelieved by droperidol or pre- op antiemetic. Begin with lowest dose unless otherwise directed. Give remainder of dose if nausea unrelieved in 20 minutes. Not to exceed 25 mg in one hour unless otherwise ordered by Anesthesia Coordinator. VESICANT , PACU documented in this encounter Orders Medications Ordered That Rolo ht Not Have Been Administered Count Last Ordered Date First Ordered Date ceFAZolin (ANCEF) IVPB 2 g 1 10/11/2023 dimenhyDRINATE (DRAMAMINE) i njection 12.5-50 mg 1 10/11/2023 HYDROmorphone (DILAUDID) injection 0.25 mg 1 10/11/2023 meperidine (DEMEROL) injecti on (PF) 12.5 mg 1 10/11/2023 ondansetron (ZOFRAN-ODT) dis integrating tablet 8 mg 1 10/11/2023 promethazine (PHENERGAN) 12. 5 mg in sodium chloride 0.9% 10 mL injection 1 10/11/2023 promethazine (PHENERGAN) 6.2 5 mg in sodium chloride 0.9% 10 mL injection 1 10/11/2023 Admission Count Last Ordered Date First Orde red Date ADMIT 1 10/11/2023 Discharge Count Last Ordered Date First Orde red Date DISCHARGE PATIENT 1 10/11/2023 documented in this encounter Care Teams Architect Internship Relationship Specialty Start Date End Date Jean Davila MD [address] [place] [address] PCP - General Family Medicine 10/04/23 documented as of this encounter
--- OUTSIDE RECORDS SUMMARY | 2024-08-04 08:35 | XMS_ITS | Encounter Summary ---
Author Organization [place] [address] Care Team Providers Care Hide Stretcher Hand Name Role Phone Jean Davila MD Primary Care Provider [phone] Reason for Visit * Reason Comments Post-Operative Exam Encounter Details Date Type Department Care Team (Latest Contact Info) Description 11/16/2023 8:00 AM EST Office Visit [facility] [address] [phone] Penny Ferguson PA-C [address] [place] [address] Post-operative state (Primary Dx); Complete uterovaginal prolapse Social History Tobacco Use Types Packs/Day Years [...] Taken Comments Blood Pressure - - Pulse 76 11/16/2023 8:10 AM EST Temperature - - Respiratory Rate - - Oxygen Saturation 97% 11/16/2023 8:10 AM EST Inhaled Oxygen Concentration - - Weight 65.8 kg (145 lb) 11/16/2023 8:10 AM EST Height - - Body Mass Index 25.69 09/22/2023 9:12 AM EST documented in this encounter Progress Notes * Penny Farmer PA - 11/16/2023 8:00 AM EST Images from the original note were not included. Yeni Farmer PA-C Post Operative Note Marguerite Martinez 1960 Assessment: 63 y.o. female with 1. Post-operative state 2. Complete uterovaginal prolapse Plan: 1) Post op: S/p Total Vaginal Hysterectomy, RIGHT Salpingectomy, Uterosacral Ligament Suspension, Anterior Repair, Posterior Repair, ENTEROCELE REPAIR Placement of Retropubic Midurethral Mesh Sling, Cystoscopy, VAGINAL AND VULVAR BIOPSY with Dr. Johnson -Incisions healing well, but still healing; recommend nightly estrogen cream x 3-4 weeks to optimize healing Patient already has estrogen cream Rx Okay for RTW on Wednesday, as patient does not lift anything heavy at her job, but recommend waiting on baths and intercourse until her next exam -PVR WNL, but on the higher end so will recheck at f/u 2) F/u in 3-4 weeks for repeat exam and PVR check HPI: Marguerite Martinez is a 63 y.o. year old who is 5 weeks s/p Total Vaginal Hysterectomy, RIGHT Salpingectomy, Uterosacral Ligament Suspension, Anterior Repair, Posterior Repair, ENTEROCELE REPAIR Placement of Retropubic Midurethral Mesh Sling, Cystoscopy, VAGINAL AND VULVAR BIOPSY with Dr. Johnson. Patient has been doing well since surgery. Her post op nausea has resolved. Vaginal bulge/POP symptoms: Resolved since surgery DAVID: None Vaginal bleeding: None Vaginal discharge: None Bowel movements: No straining UTI symptoms: None Difficulty emptying: None Pain: None Review of Systems: Constitutional: Denies fever, chills, weakness Gastrointestinal: Denies jaundice, nausea, liver problems Genitourinary: Denies vaginal bulge/pressure symptoms, vaginal discharge, dysuria Focused Physical Exam: Vitals: 11/16/23 0810 Pulse: 76 SpO2: 97% Flux Mixer: Gloria PVR obtained with straight catheterization: 170 cc Post Operative Exam Surgical sites Incisions: Vaginal Intact, still healing particularly at the vaginal cuff POP-Q Aa = -3 Ba = -3 C = -8 GH = 2.5 PB = 3 TVL = 8 Ap = -3 Bp = -3 D = x Yeni Farmer PA-C [facility] [place] [address] 11/16/23 8:57 AM documented in this encounter Plan of Treatment Not on file documented as of this encounter Visit Diagnoses Diagnosis Post-operative state- Primary Other postprocedural status Complete uterovaginal prolapse Uterovaginal prolapse, complete documented in this encounter Care Teams Hide Stretcher Hand Relationship Specialty Start Date End Date Jean Davila MD [address] [place] [address] PCP - General Family Medicine 10/04/23 documented as of this encounter
--- OUTSIDE RECORDS SUMMARY | 2024-08-04 08:35 | XMS_ITS | Encounter Summary ---
Author Organization [place] [address] Care Team Providers Care Gastroenterology Nurse Practitioner Name Role Phone Jean Davila MD Primary Care Provider [phone] Reason for Visit * Reason Onset Date Comments Results 10/18/2023 Encounter Details Date Type Department Care Team (Late st Contact Info) Description 10/18/2023 Telephone [facility] [address] [phone] Wendy Miles MA Results Social History Tobacco Use Types Packs/Day [...] AM EST documented as of this encounter Miscellaneous Notes * Telephone Encounter - Wendy Miles MA - 10/18/2023 4:20 PM EST Outgoing call to pt: Answered Pt informed. Pt asked if she could move her 6wk PO a week sooner as she will be back to work on the 22 of November. Pt is now scheduled for 11/16/23 at 8:00am. * Telephone Encounter - Wendy Miles MA - 10/18/2023 4:19 PM EST ----- Message from FILIBERTO Brown sent at 10/18/2023 4:05 PM EST ----- Staff - please call patient to let her know that her pathology result from surgery was benign and just showed prior inflammation/friction from her prolapse. Thank you! JAVI JuarezC documented in this encounter Plan of Treatment Not on file documented as of this encounter Visit Diagnoses Not on filedocumented in this encounter Care Teams Gastroenterology Nurse Practitioner Relationship Specialty Start Date End Date Jean Davila MD [address] [place] [address] PCP - General Family Medicine 10/04/23 documented as of this encounter
--- OUTSIDE RECORDS SUMMARY | 2024-08-04 08:35 | XMS_ITS | Encounter Summary ---
Author Organization [place] [address] Care Team Providers Care Lime Kiln Worker Name Role Phone Jean Davila MD Primary Care Provider [phone] Reason for Visit * Reason Comments Follow-up Encounter Details Date Type Department Care Team (Latest Contact Info) Description 07/19/2024 8:00 AM EST Office Visit [facility] [address] [phone] Penny Ferguson PA-C [address] [place] [address] Hx of uterine prolapse (Primary Dx); History of pelvic surgery; History of suburethral sling procedure; Vaginal atrophy; Vaginal discharge Social History Tobacco Use Types Packs/Day Years [...] Comments Blood Pressure - - Pulse 80 07/19/2024 7:46 AM EST Temperature - - Respiratory Rate - - Oxygen Saturation 99% 07/19/2024 7:46 AM EST Inhaled Oxygen Concentration - - Weight 65.5 kg (144 lb 6.4 oz) 07/19/2024 7:46 A M EST Height - - Body Mass Index 25.58 04/12/2024 7:47 AM EDT documented in this encounter Progress Notes * Penny Ferguson PA-C - 07/19/2024 8:00 AM EST Images from the original note were not included. Penny Ferguson PA-C Follow Up Note Marguerite Martinez 1960 Assessment: 64 y.o. female with 1. Hx of uterine prolapse 2. History of pelvic surgery 3. History of suburethral sling procedure 4. Vaginal atrophy 5. Vaginal discharge MOLECULAR VAGINITIS PANEL (MVP) MOLECULAR VAGINITIS PANEL (MVP) Plan: 1) H/o Total Vaginal Hysterectomy, RIGHT Salpingectomy, Uterosacral Ligament Suspension, Anterior Repair, Posterior Repair, ENTEROCELE REPAIR Placement of Retropubic Midurethral Mesh Sling, Cystoscopy, VAGINAL AND VULVAR BIOPSY with Dr. Villeda on 10/11/23: No return of vaginal bulge/POP symptoms. DAVID resolved. -Area of granulation tissue at the vaginal cuff with improved healing -Continue vaginal estrogen cream; no refills needed at this time -MVP vaginal swab collected 2) F/u in 1 year, sooner if symptoms return/worsen HPI: Marguerite Martinez is a 64 y.o. who is here for f/u s/p POP/DAVID surgery with persistent granulationtissue S/p Total Vaginal Hysterectomy, RIGHT Salpingectomy, Uterosacral Ligament Suspension, Anterior Repair, Posterior Repair, ENTEROCELE REPAIR Placement of Retropubic Midurethral Mesh Sling, Cystoscopy, VAGINAL AND VULVAR BIOPSY with Dr. Villeda on 10/11/23 Vaginal bulge/POP symptoms: Resolved since surgery DAVID: Resolved since surgery Vaginal bleeding: None Vaginal discharge: None UTI symptoms: None Difficulty emptying: None Patient has been doing fine. No new issues or concerns today. She has been using the estrogen creamevery night as recommended. She just has a few questions about the procedure she had. Past Medical History: Diagnosis Date Arthritis Chronic low back pain Complete uterovaginal prolapse Constipation, chronic Endometrial stripe increased Insomnia PMB (postmenopausal bleeding) DAVID (stress urinary incontinence, female) Past Surgical History: Procedure Laterality Date CYSTOCELE REPAIR N/A 10/11/2023 .; Surgeon: Chika Johnson MD; Location: [facility] MAIN OR; Service: Gynecology IN REPR VAGINAL PROLAPSE,UTEROSACRAL N/A 10/11/2023 .; Surgeon: [...] Anesth Problems Neg Hx Review of Systems: Genitourinary: Denies dysuria, vaginal discharge, vaginal bleeding Focused Physical Exam: Vitals: 07/19/24 0746 Pulse: 80 SpO2: 99% Pelvic Exam: Hydrotechnical Specialist: Gracie External genitalia: Normal Introitus: Atrophic Vagina: Atrophic, persistently thin tissue at the vaginal cuff but no obvious granulation tissue present, yellow/white discharge present - MVP vaginal swab collected POP-Q Aa = 0 Ba = 0 C = -5 GH = 3 PB = 3 TVL = 6 Ap = -3 Bp = -3 D = x Time-Based Billing Statement: I spent 32 minutes in the care of this patient on this calendar day. Activities performed during this time include: Obtaining or reviewing history (separately obtained), Performing the appropriate exam, Counseling and educating, and Documenting clinical information in the EHR The total time documented above did not include the following activities which were also performed on this calendar day: None Penny Ferguson PA-C [place] [address] 07/19/24 8:54 AM documented in this encounter Plan of Treatment Not on file documented as of this encounter Procedures Procedure Name Priority Date/Time Associated Diagnosis Comments MOLECULAR VAGINITIS PANEL (MVP) Routine 07/19/2024 8:15 AM EST Vaginal discharge documented in this encounter Results * MOLECULAR VAGINITIS PANEL (MVP) (07/19/2024 8:15 AM EST) Bacterial Vaginosis Not Detected Not Detected 07/20/2024 1:13 AM EST [facility] Comment:Normal/Balanced vagi nal microbiome. Nakaseomyces glabrata (previously Yeni glabrata) Not Detected Not Detected 07/20/2024 1:13 AM EST [facility] Yeni group Not Detected Not Detected 07/20/2024 1:13 AM EST [facility] Comment:C. albicans, C. trop icalis, C. parapsilosis, and/or C. dubliniensis NOT detected. Yeni krusei Not Detected Not Detected 07/20/2024 1:13 AM EST [facility] Trichomonas vaginalis Not Detected Not Detected 07/20/2024 1:13 AM EST [facility] Swab SPECIMEN FROM VAGINA / Unknown 07/19/2024 8:15 AM EST 07/19/2024 8:15 AM EST Narrative [facility] - 07/20/2024 1:13 AM EST Test performed using the [employer] MAX Vaginal Panel, a real-time polymerase chain (PCR) molecular nucleic acid amplification test. us Penny Ferguson PA-C MICROBIOLOGY - GENERA L ORDERABLES Final Result [facility] [address] [facility] , [place] [place] [address] documented in this encounter Visit Diagnoses Diagnosis Hx of uterine prolapse- Primary Personal history of other genital system and obstetric disorders History of pelvic surgery Personal history of surgery to other organs History of suburethral sling procedure Vaginal atrophy Postmenopausal atrophic vaginitis Vaginal discharge Leukorrhea, not specified as infective documented in this encounter Care Teams Lime Kiln Worker Relationship Specialty Start Date End Date Jean Davila MD [address] [place] [address] PCP - General Family Medicine 10/04/23 documented as of this encounter
--- OUTSIDE RECORDS SUMMARY | 2024-08-04 08:35 | XMS_ITS | Encounter Summary ---
Author Organization [place] [address] Care Team Providers Care Ship Loader Name Role Phone Jean Davila MD Primary Care Provider [phone] Reason for Visit * Reason Comments Follow-up Encounter Details Date Type Department Care Team (Latest Contact Info) Description 12/08/2023 8:30 AM EDT Office Visit [facility] [address] [address] Penny Ferguson PA-C [address] [place] [address] Post-operative state (Primary Dx); Complete uterovaginal prolapse; Granulation tissue of vagina; Vaginal discharge Social History Tobacco Use Types [...] Taken Comments Blood Pressure - - Pulse 66 12/08/2023 8:17 AM EDT Temperature - - Respiratory Rate - - Oxygen Saturation 98% 12/08/2023 8:17 AM EDT Inhaled Oxygen Concentration - - Weight 66.2 kg (146 lb) 12/08/2023 8:17 AM EDT Height - - Body Mass Index 25.86 09/22/2023 9:12 AM EST documented in this encounter Progress Notes * Penny Farmer PA - 12/08/2023 8:30 AM EDT Images from the original note were not included. Yeni Farmer PA-C Post Operative Note Marguerite Martinez 1960 Assessment: 63 y.o. female with 1. Post-operative state 2. Complete uterovaginal prolapse 3. Granulation tissue of vagina 4. Vaginal discharge MOLECULAR VAGINITIS PANEL (MVP) MOLECULAR VAGINITIS PANEL (MVP) Plan: 1) Post op: S/p Total Vaginal Hysterectomy, RIGHT Salpingectomy, Uterosacral Ligament Suspension, Anterior Repair, Posterior Repair, ENTEROCELE REPAIR Placement of Retropubic Midurethral Mesh Sling, Cystoscopy, VAGINAL AND VULVAR BIOPSY with Dr. Johnson -Anterior/posterior wall incisions well healed with two small areas of granulation tissue; these were treated with silver nitrate today -Vaginal cuff incision healing improved, but still healing Wait 1 week before resuming vaginal estrogen cream, then resume nightly; no refills needed at this time -PVR WNL -MVP vaginal swab collected 2) F/u in 6-8 weeks for repeat exam HPI: Marguerite Martinez is a 63 y.o. year old who is 8.5 weeks s/p Total Vaginal Hysterectomy, RIGHT Salpingectomy, Uterosacral Ligament Suspension, Anterior Repair, Posterior Repair, ENTEROCELE REPAIR Placement of Retropubic Midurethral Mesh Sling, Cystoscopy, VAGINAL AND VULVAR BIOPSY with Dr. Johnson. Patient has been doing well since she was last seen. She has been using estrogen cream every night as recommended. Vaginal bulge/POP symptoms: Resolved since surgery DAVID: Resolved since surgery Vaginal bleeding: None Vaginal discharge: Minimal Bowel movements: No straining UTI symptoms: None Difficulty emptying: None Pain: None Review of Systems: Constitutional: Denies fever, chills, weakness Gastrointestinal: Denies jaundice, nausea, liver problems Genitourinary: +Vaginal discharge; Denies vaginal bulge/pressure symptoms, dysuria Focused Physical Exam: Vitals: 12/08/23 0817 Pulse: 66 SpO2: 98% Brine Room Laborer: Gloria PVR obtained with straight catheterization: 70 cc *Needed to reduce anterior wall in order to advance catheter Post Operative Exam Surgical sites Incisions: Vaginal Vaginal cuff incision intact, but still healing with multiple sutures still present A/P wall incisions well healed with 1 cm piece of granulation tissue present on both mejía - these were both treated with silver nitrate +Minimal discharge present - MVP vaginal swab collected POP-Q Aa = -1 Ba = -1 C = -6 GH = 3 PB = 3 TVL = 6 Ap = -3 Bp = -3 D = x Yeni Farmer PA-C [facility] [place] [place] [address] 12/08/23 8:57 AM documented in this encounter Plan of Treatment Not on file documented as of this encounter Procedures Procedure Name Priority Date/Time Associated Diagnosis Comments MOLECULAR VAGINITIS PANEL (MVP) Routine 12/08/2023 8:26 AM EDT Vaginal discharge documented in this encounter Results * MOLECULAR VAGINITIS PANEL (MVP) (12/08/2023 8:26 AM EDT) Bacterial Vaginosis Not Detected Not Detected 12/09/2023 4:10 AM EDT [facility] Comment:Normal/Balanced vagi nal microbiome. Nakaseomyces glabrata (previously Yeni glabrata) Not Detected Not Detected 12/09/2023 4:10 AM EDT [facility] Yeni group Not Detected Not Detected 12/09/2023 4:10 AM EDT [facility] Comment:C. albicans, C. trop icalis, C. parapsilosis, and/or C. dubliniensis NOT detected. Yeni krusei Not Detected Not Detected 12/09/2023 4:10 AM EDT [facility] Trichomonas vaginalis Not Detected Not Detected 12/09/2023 4:10 AM EDT [facility] Swab SPECIMEN FROM VAGINA / Unknown 12/08/2023 8:26 AM EDT 12/08/2023 8:26 AM EDT Narrative [facility] - 12/09/2023 4:10 AM EDT Test performed using the vushaper MAX Vaginal Panel, a real-time polymerase chain (PCR) molecular nucleic acid amplification test. us Penny Ferguson PA-C MICROBIOLOGY - GENERA L ORDERABLES Final Result [facility] , [place] [address] documented in this encounter Visit Diagnoses Diagnosis Post-operative state- Primary Other postprocedural status Complete uterovaginal prolapse Uterovaginal prolapse, complete Granulation tissue of vagina Granuloma inguinale Vaginal discharge Leukorrhea, not specified as infective documented in this encounter Care Teams Ship Loader Relationship Specialty Start Date End Date Jean Davila MD [address] [place] [address] PCP - General Family Medicine 10/04/23 documented as of this encounter
--- OUTSIDE RECORDS SUMMARY | 2024-08-04 08:35 | XMS_ITS | Encounter Summary ---
Author Organization [place] [address] Care Team Providers Care Engagement Manager Name Role Phone Jean Davila MD Primary Care Provider [phone] Reason for Visit * Reason Comments Follow-up Encounter Details Date Type Department Care Team (Latest Contact Info) Description 04/12/2024 8:00 AM EDT Office Visit [facility] [address] [address] Penny Ferguson PA-C [address] [place] [address] Hx of uterine prolapse (Primary Dx); History of pelvic surgery; History of suburethral sling procedure; Granulation tissue of vagina; Urge urinary incontinence; OAB (overactive bladder) Social History Tobacco Use Types Packs/Day Years [...] Taken Comments Blood Pressure - - Pulse 81 04/12/2024 7:47 AM EDT Temperature - - Respiratory Rate 16 04/12/2024 7:47 AM EDT Oxygen Saturation 99% 04/12/2024 7:47 AM EDT Inhaled Oxygen Concentration - - Weight 65.8 kg (145 lb) 04/12/2024 7:47 AM EDT Height 160 cm (5' 3 ) 04/12/2024 7:47 AM EDT Body Mass Index 25.69 04/12/2024 7:47 AM EDT documented in this encounter Progress Notes * Penny Farmer PA - 04/12/2024 8:00 AM EDT Images from the original note were not included. FIL[facility]O [facility] Follow Up Note Marguerite Tripathison 1960 Assessment: 64 y.o. female with 1. Hx of uterine prolapse 2. History of pelvic surgery 3. History of suburethral sling procedure 4. Granulation tissue of vagina 5. Urge urinary incontinence 6. OAB (overactive bladder) Plan: 1) H/o Total Vaginal Hysterectomy, RIGHT Salpingectomy, Uterosacral Ligament Suspension, Anterior Repair, Posterior Repair, ENTEROCELE REPAIR, Placement of Retropubic Midurethral Mesh Sling, Cystoscopy, VAGINAL AND VULVAR BIOPSY with Dr. Villeda on 10/11/23: No return of vaginal bulge/POP symptoms. DAVID resolved. -Persistent granulation tissue along vaginal cuff treated with silver nitrate today -Continue vaginal estrogen cream; no refills needed at this time 2) Urge urinary incontinence: We discussed the pathophysiology of UUI/OAB and conservative management options such as behavioral modifications, kegel exercises, avoiding bladder irritants, and pelvicfloor physical therapy. We also reviewed treatment with various medications and advancing to third-line options, if necessary. -Recommend decrease bladder irritants -Offered OAB medication, but patient declined 3) F/u in 3 months for repeat exam HPI: Marguerite Martinez is a 64 y.o. who is here for f/u s/p POP/DAVID surgery with persistent granulationtissue S/p Total Vaginal Hysterectomy, RIGHT Salpingectomy, Uterosacral Ligament Suspension, Anterior Repair, Posterior Repair, ENTEROCELE REPAIR, Placement of Retropubic Midurethral Mesh Sling, Cystoscopy,VAGINAL AND VULVAR BIOPSY with Dr. Villeda on 10/11/23. Patient has been doing fine since she was last seen. She has been using estrogen cream as recommended. No return of vaginal bulge/POP symptoms or DAVID. No vaginal bleeding, discharge, feelings of incomplete emptying, UTI symptoms, or pain. She is not sexually active. She c/o bothersome urinary frequency and reports minimal UUI. No bothersome urinary urgency. She typically drinks a lot of water thro ughout the day with 1 coffee in the morning and Diet Coke at dinner. Past Medical History: Diagnosis Date Arthritis Chronic low back pain Complete uterovaginal prolapse Constipation, chronic Endometrial stripe increased Insomnia PMB (postmenopausal bleeding) DAVID (stress urinary incontinence, female) Past Surgical History: Procedure Laterality Date CYSTOCELE REPAIR N/A 10/11/2023 .; Surgeon: Chika Johnson MD; Location: [facility] MAIN OR; Service: Gynecology [place] REPR VAGINAL PROLAPSE,UTEROSACRAL N/A 10/11/2023 .; Surgeon: [...] Neg Hx Review of Systems: Genitourinary: Denies vaginal bleeding, vaginal discharge, dysuria Focused Physical Exam: Vitals: 04/12/24 0747 Pulse: 81 Resp: 16 SpO2: 99% Pelvic Exam: Java Lead Developer: Kasandra External genitalia: Normal Introitus: Atrophic Vagina: Atrophic. Persistent area of granulation tissue at the vaginal cuff - this was treated withsilver nitrate. Granulation tissue along posterior wall has healed. [facility] [place] [address] 04/12/24 9:27 AM documented in this encounter Plan of Treatment Not on file documented as of this encounter Visit Diagnoses Diagnosis Hx of uterine prolapse- Primary Personal history of other genital system and obstetric disorders History of pelvic surgery Personal history of surgery to other organs History of suburethral sling procedure Granulation tissue of vagina Granuloma inguinale Urge urinary incontinence Urge incontinence OAB (overactive bladder) Hypertonicity of bladder documented in this encounter Historical Medications * This list may reflect changes made after this encounter. methocarbamoL (ROBAXIN) 750 mg Oral Tablet TAKE 1 TABLET BY MOUTH EVERY 4 HOURS FOR 7 DAYS 04/06/2024 added in this encounter Care Teams Engagement Manager Relationship Specialty Start Date End Date Jean Davila MD [address] [place] [address] PCP - General Family Medicine 10/04/23 documented as of this encounter
--- OUTSIDE RECORDS SUMMARY | 2024-08-04 08:35 | XMS_ITS | Encounter Summary ---
[facility] Organization [facility] Address [address] [place] [address] Care Team Providers Care Warehouse Associate Name Role Phone Pia Murcia APRN Primary Care Provider [phone] Reason for Visit * Diagnostic Imaging (Routine) - Closed Specialty Diagnoses / Procedures Referred By Contac t Referred To Contact Diagnoses Bilateral lower extremity edema Heart murmur, systolic Procedures Adult Transthoracic Echo Complete W/ Cont if Necessary Per Protocol [facility] ECHO TTHRC R-T 2D W/WOM-MODE COMPL SPEC&COLR D W[place] ECHO TRANSTHORC R-T 2D W/WO M-MODE REC F-UP/LMTD Roselia Burks APRN [address] [facility] [address] [place] [address] Phone: tel: fax: [facility] [address] [place] [address] Phone: tel: Referral ID Status Reason Start Date Expiration Date Visits Re quested Visits Authorized [id number] Closed 07/12/2024 07/12/2025 1 1 Encounter Details Date Type Department Care Team (Latest Contact Info) Description 08/02/2024 3:00 PM EST - 08/02/2024 11:59 PM EST Hospital Encounter [facility] NONINVAS[facility] LAB [address] [facility] [address] [place] [id number] Arrived Discharge Disposition: Home or Self Care Social History Tobacco Use Types Packs/Day Years Used Date Smoking Tobacco: Never Passive Smoke Exposure: Past Smokeless Tobacco: Never Alcohol Use Standard Drinks/Week Comments Never 0 (1 standard drink = 0.6 oz pur e alcohol) Comments Unknown Sex and Gender Information Value Date Recorded Sex Assigned at Not on file Legal Sex Female 9:13 AM EDT Gender Identity Not on file Sexual Orientation Not on file documented as of this encounter Medications at Time of Discharge Biotin 10 MG capsule Take by mouth. furosemide (LASIX) 20 MG tablet Take 1 tablet by mouth Daily. 06/30/2024 ibuprofen (ADVIL,MOTRIN) 600 MG tablet Take 1 tablet by mouth Every 6 (Six) Hours As Needed. potassium chloride ER (K-TAB) 20 MEQ tablet controlled-releas e ER tablet Take 1 tablet by mouth Daily. with food. 06/30/2024 traMADol (ULTRAM) 50 MG tablet 1 tablet. documented as of this encounter Plan of Treatment Upcoming Encounters Date Type Department Care Team (Late st Contact Info) Description 10/25/2024 9:40 AM EST Office Visit [facility] CARDIOLOGY [address] [facility] [address] [place] [address] Roselia Burks, COMMUNICATIONS MEDIA PROFESSOR [address] [facility] [address] [place] [address] documented as of this encounter Procedures Procedure Name Priority Date/Time Associated Diagnosis Comments ECHO COMPLETE W/ DOPPLER AND COLOR FLOW Routine 08/02/2024 3:42 PM EST Bilateral lower extremity edema Heart murmur, systolic documented in this encounter Results * ECHO [...] dilation of the aortic root is present. Roselia L [place] COMMUNICATIONS MEDIA PROFESSOR CV ECHO ORDERABLES Final Re sult documented in this encounter Visit Diagnoses Not on filedocumented in this encounter Care Teams Warehouse Associate Relationship Specialty Start Date End Date Pia Murcia APRN [address] [place] [address] PCP - General Nurse Practitioner 07/06/24 documented as of this encounter
--- OUTSIDE RECORDS SUMMARY | 2024-08-04 08:35 | XMS_ITS | Encounter Summary ---
[facility] Address [address] [place] [address] Care Team Providers Care Redrying Machine Operator Name Role Phone Pia Murcia APRN Primary Care Provider [phone] Encounter Details Date Type Department Care Team (Late st Contact Info) Description 07/12/2024 2:20 PM EDT Lab [facility] [address] [place] [address] Bilateral lower extremity edema Social History Tobacco Use Types Packs/Day Years [...] on file documented as of this encounter Plan of Treatment Upcoming Encounters Date Type Department Care Team (Late st Contact Info) Description 10/25/2024 9:40 AM EST Office Visit [facility] [address] [facility] [address] [place] [phone] Roselia Burks APRN [address] [facility] [address] [address] [place] [address] documented as of this encounter Procedures Procedure Name Priority Date/Time Associated Diagnosis Comments PROBNP Routine 07/12/2024 2:20 PM EDT Bilateral lower extremity edema D-DIMER, QUANTITATIVE Routine 07/12/2024 2:20 PM EDT Bilateral lower extremity edema MAGNESIUM Routine 07/12/2024 2:20 PM EDT Bilateral lower extremity edema BASIC METABOLIC PANEL Routine 07/12/2024 2:20 PM EDT Bilateral lower extremity edema documented in this encounter Results * Magnesium (07/12/2024 2:20 PM EDT) Magnesium 2.2 1.6 - 2.4 mg/dL 07/12/2024 8:11 PM EDT [facility] Blood Venipuncture / Unknown 07/12/2024 2:20 PM EDT 07/12/2024 2:20 PM EDT Roselia Burks APRN LAB BLOOD ORDERABLES Final Result [facility]
[address] [place] [address], * Basic Metabolic Panel (07/12/2024 2:20 PM EDT) Glucose 97 65 - 99 mg/dL 07/12/2024 8:11 PM EDT [facility] BUN 13 8 - 23 mg/dL 07/12/2024 8:11 PM EDT [facility] Creatinine 0.76 0.57 - 1.00 mg/dL 07/12/2024 8:11 PM EDT [facility] Sodium 142 136 - 145 mmol/L 07/12/2024 8:11 PM EDT [facility] Potassium 4.2 3.5 - 5.2 mmol/L 07/12/2024 8:11 PM EDT [facility] Chloride 105 98 - 107 mmol/L 07/12/2024 8:11 PM EDT [facility] CO2 26.0 22.0 - 29.0 mmol/L 07/12/2024 8:11 PM EDT [facility] Calcium 9.5 8.6 - 10.5 mg/dL 07/12/2024 8:11 PM EDT [facility] BUN/Creatinine Ratio 17.1 7.0 - 25.0 07/12/2024 8:11 PM EDT [facility] Anion Gap 11.0 5.0 - 15.0 mmol/L 07/12/2024 8:11 PM EDT [facility] eGFR 86.5 >60.0 mL/min/1.7 3 07/12/2024 8:11 PM EDT [facility] Blood Venipuncture / Unknown 07/12/2024 2:20 PM EDT 07/12/2024 2:20 PM EDT [facility] - 07/12/2024 8:11 PM EDT GFR Normal >60 Chronic Kidney Disease <60 Kidney Failure <15 Roselia Burks APRN LAB BLOOD ORDERABLES Final Result [facility]
[address] [place] [address], * D-dimer, Quantitative (07/12/2024 2:20 PM EDT) [facility] D-Dimer, Quantitative 0.50 0.00 - 0.66 MCGFEU/mL 07/12/2024 3:19 PM EDT [facility] Blood Venipuncture / Unknown 07/12/2024 2:20 PM EDT 07/12/2024 2:20 PM EDT [facility] - 07/12/2024 3:19 PM EDT According to the assay permanent mold supervisor's published package insert, a normal (<0.50 MCGFEU/mL) D-dimer result in conjunction with a non-high clinical probability assessment, excludes deep vein thrombosis (DVT) and pulmonary embolism (PE) with high sensitivity. D-dimer values increase with age and this can make VTE exclusion of an older population difficult. To address this, the [employer], based on best available [...] 78 year old 0.80 MCGFEU/mL. Roselia Burks APRN LAB BLOOD ORDERABLES Final Result [facility]
[address] [place] [address], * proBNP (07/12/2024 2:20 PM EDT) [facility] proBNP 48.7 0.0 - 900.0 pg/mL 07/12/2024 8:11 PM EDT [facility] Blood Venipuncture / Unknown 07/12/2024 2:20 PM EDT 07/12/2024 2:20 PM EDT Narrative [facility] - 07/12/2024 8:11 PM EDT [...] Positive ?>1800 ?Patel ?300-1800 ?Negative ?<300 us Roselia Burks APRN LAB BLOOD ORDERABLES Final Result [facility]
[address] [place] [address], documented in this encounter Visit Diagnoses Diagnosis Bilateral lower extremity edema documented in this encounter Care Teams Redrying Machine Operator Relationship Specialty Start Date End Date Pia Murcia APRN [address] [place] [phone] PCP - General Nurse Practitioner 07/06/24 documented as of this encounter
--- OUTSIDE RECORDS SUMMARY | 2024-08-04 08:35 | XMS_ITS | Encounter Summary ---
Author Organization [place] [address] Care Team Providers Care Geodesist Name Role Phone Jean Davila MD Primary Care Provider [phone] Reason for Visit * Reason Onset Date Comments Results 12/09/2023 Encounter Details Date Type Department Care Team (Late st Contact Info) Description 12/09/2023 Telephone [facility] [address] [address] Kasandra Pichardo MA Results Social History Tobacco Use Types [...] encounter Miscellaneous Notes * Telephone Encounter - Kasandra Pichardo MA - 12/09/2023 7:55 AM EDT PT informed of normal results * Telephone Encounter - Kasandra Pichardo MA - 12/09/2023 7:55 AM EDT ----- Message from FILIBERTO Brown sent at 12/09/2023 7:44 AM EDT ----- Staff - please call patient to let her know that her vaginal swab was normal Thank you! Yeni Heidemann, PA-C documented in this encounter Plan of Treatment Not on file documented as of this encounter Visit Diagnoses Not on filedocumented in this encounter Care Teams Geodesist Relationship Specialty Start Date End Date Jean Davila MD [address] [place] [address] PCP - General Family Medicine 10/04/23 documented as of this encounter
--- OUTSIDE RECORDS SUMMARY | 2024-08-04 08:35 | XMS_ITS | Encounter Summary ---
[facility] Address [address] [place] [address] Care Team Providers Care Stave Block Splitter Name Role Phone Pia Murcia APRN Primary Care Provider [phone] Encounter Details Date Type Department Care Team (Late st Contact Info) Description 07/13/2024 Documentation [facility] [address] [facility] [address] [place] [address] Roselia Burks APRN [address] [facility] [address] [place] [address] Social History Tobacco Use Types Packs/Day Years [...] on file documented as of this encounter Progress Notes * Roselia Burks APRN - 07/13/2024 9:41 AM EDT Electrolytes and kidney function were normal. No evidence of blood clots or heart failure. When I get her echocardiogram results back, I will let her know. I will have CARLIE Albert call the patient back with results/recommendations. I was able to get her CHELSEA results from [facility] which showed no evidence of stenosis/occlusion bilaterally. Electronically signed by Roselia Burks APRN, 07/13/24, 9:42 AM EDT. documented in this encounter Plan of Treatment Upcoming Encounters Date Type Department Care Team (Late st Contact Info) Description 10/25/2024 9:40 AM EST Office Visit [facility] [address] [facility] [address] [place] [address] Roselia Burks APRN [address] [facility] [address] [place] [address] documented as of this encounter Visit Diagnoses Not on filedocumented in this encounter Care Teams Stave Block Splitter Relationship Specialty Start Date End Date Pia Murcia APRN [address] [place] [address] PCP - General Nurse Practitioner 07/06/24 documented as of this encounter
--- OUTSIDE RECORDS SUMMARY | 2024-08-04 08:35 | XMS_ITS | Encounter Summary ---
[facility] Address [address] [place] [address] Care Team Providers Care Outreach Director Name Role Phone Pia Murcia APRN Primary Care Provider [phone] Encounter Details Date Type Department Care Team (Latest Contact Info) Description 08/02/2024 Travel Social History Tobacco Use Types Packs/Day Years [...] Description 10/25/2024 9:40 AM EST Office Visit [facility] C[facility]IOLOG[facility] [address] [place] [address] Roselia Burks APRN [address] [place] [address] documented as of this encounter Visit Diagnoses Not on filedocumented in this encounter Care Teams Outreach Director Relationship Specialty Start Date End Date Pia Murcia APRN [address] [place] [address] PCP - General Nurse Practitioner 07/06/24 documented as of this encounter
--- OUTSIDE RECORDS SUMMARY | 2024-08-04 08:35 | XMS_ITS | Encounter Summary ---
[facility] Address [address] [place] [address] Care Team Providers Care Cloth Examiner Name Role Phone Pia Murcia APRN Primary Care Provider [phone] Encounter Details Date Type Department Care Team (Late st Contact Info) Description 08/02/2024 Documentation [facility] [address] [facility] [address] [place] [address] Roselia Burks APRN [address] [facility] [address] [place] [address] Social History Tobacco Use Types Packs/Day Years [...] Progress Notes * Roselia Burks APRN - 08/02/2024 4:08 PM EST I was able to review the patient's echocardiogram results. Ejection fraction was normal. She was found to have mild septal asymmetric hypertrophy. She had no significant structural or functional valvular disease. We do not have another echocardiogram to compare to. If the patient has any palpitations, we will mail her a Holter monitor to wear. Her next appointment with me is in October 2024. Mayconsider cardiac MRI in the future.I will have CARLIE Albert call the patient back with results/recommendations. Electronically signed by Roselia Burks APRN, 08/02/24, 4:13 PM EST. documented in this encounter Plan of Treatment Upcoming Encounters Date Type Department Care Team (Late st Contact Info) Description 10/25/2024 9:40 AM EST Office Visit [facility] [address] [facility] [address] [place] [address] Roselia Burks APRN [address] [facility] [address] [place] [address] documented as of this encounter Visit Diagnoses Not on filedocumented in this encounter Care Teams Cloth Examiner Relationship Specialty Start Date End Date Pia Murcia APRN [address] [place] [address] PCP - General Nurse Practitioner 07/06/24 documented as of this encounter
--- OUTSIDE RECORDS SUMMARY | 2024-08-04 08:35 | XMS_ITS | Referral Summary ---
Author Organization [facility] Address [address] [place] [address] Phone Care Team Providers Care Physical Geographer Name Role Phone Jean Davila MD Primary Care Provider [phone] Encounters Date Type Department Care Team Description 07/20/2024 Telephone [facility] [address] [address] Gracie Manzano, LILI Results 07/19/2024 8:00 AM EST Office Visit [facility] [address] [address] Penny Ferguson PA-C Hx of uterine prolapse (Primary Dx); History of pelvic surgery; History of suburethral sling procedure; Vaginal atrophy; Vaginal discharge from Last 3 Months Allergies No known active allergies Medications estradioL [...] MOUTH EVERY 4 HOURS FOR 7 DAYS 4 Active Active Problems Problem Noted Date Diagnosed Date Post-operative state 10/11/2023 Endometrial stripe increased 07/12/2023 DAVID (stress urinary incontinence, female) 2022 PMB (postmenopausal bleeding) 07/07/2023 Complete uterovaginal prolapse 05/19/2023 Social History Tobacco Use Types Packs/Day Years [...] 04/12/2024 7:47 AM EDT Plan of Treatment Not on file Medical Devices Implanted Type Area Spinner Iron Device Identifier Shelf Expiration Date Model / Serial / Lot Mukesh Cowart Tv Transvaginal Mesh Sling - [id number] Implanted:Qty: 1 on 10/11/2023 by Chika Johnson MD at [facility] N/A: Vagina [facility] 06/22/2026 [id number] / / [id number] Procedures Procedure Name Priority Date/Time Associated Diagnosis Comments MOLECULAR VAGINITIS PANEL (MVP) Routine 07/19/2024 8:15 AM EST Vaginal discharge from Last 3 Months Results * MOLECULAR VAGINITIS PANEL (MVP) (07/19/2024 8:15 AM EST) Bacterial Vaginosis Not Detected Not Detected 07/20/2024 1:13 AM EST [facility] Comment:Normal/Balanced vagi nal microbiome. Nakaseomyces glabrata (previously Yeni glabrata) Not Detected Not Detected 07/20/2024 1:13 AM EST [facility] Yeni group Not Detected Not Detected 07/20/2024 1:13 AM EST [facility] Comment:C. albicans, C. trop icalis, C. parapsilosis, and/or C. dubliniensis NOT detected. Yeni krusei Not Detected Not Detected 07/20/2024 1:13 AM EST [facility] Trichomonas vaginalis Not Detected Not Detected 07/20/2024 1:13 AM EST [facility] Swab SPECIMEN FROM VAGINA / Unknown 07/19/2024 8:15 AM EST 07/19/2024 8:15 AM EST Narrative [facility] - 07/20/2024 1:13 AM EST Test performed using the MobiPixie Vaginal Panel, a real-time polymerase chain (PCR) molecular nucleic acid amplification test. Penny Ferguson PA-C MICROBIOLOGY - GENERA L ORDERABLES Final Result [facility] [address] [facility] , [place] [address] from Last 3 Months Insurance MEDICARE [place] [address] PPO Care Teams Physical Geographer Relationship Specialty Start Date End Date Jean Davila MD [address] [place] [id number] PCP - General Family Medicine 10/04/23
--- OUTSIDE RECORDS SUMMARY | 2024-08-04 08:35 | XMS_ITS | Encounter Summary ---
[facility] Address [address] [place] [address] Care Team Providers Care Sat Math Tutor Name Role Phone Pia Murcia APRN Primary Care Provider [phone] Encounter Details Date Type Department Care Team (Latest Contact Info) Description 07/12/2024 Travel Social History Tobacco Use Types Packs/Day [...] Description 10/25/2024 9:40 AM EST Office Visit [facility] [address] [place] [address] Roselia Burks APRN [address] [place] [address] documented as of this encounter Visit Diagnoses Not on filedocumented in this encounter Care Teams Sat Math Tutor Relationship Specialty Start Date End Date Pia Murcia APRN [address] [place] [address] PCP - General Nurse Practitioner 07/06/24 documented as of this encounter
--- OUTSIDE RECORDS SUMMARY | 2024-08-04 08:35 | XMS_ITS | Encounter Summary ---
Author Organization [place] [address] Care Team Providers Care Spool Worker Name Role Phone Jean Davila MD Primary Care Provider [phone] Reason for Visit * Auth/Cert/Inpt (Routine) Specialty Diagnoses / Procedures Referred By Deon t Referred To Contact Diagnoses Complete uterovaginal prolapse PMB (postmenopausal bleeding) Endometrial stripe increased DAVID (stress urinary incontinence, female) Complete uterovaginal prolapse [N81.3] PMB (postmenopausal bleeding) [N95.0] Endometrial stripe increased [R93.89] DAVID (stress urinary incontinence, female) [N39.3] Procedures NE VAG HYST,RMV TUBE/OVARY NE REPR VAGINAL PROLAPSE,UTEROSACRAL NE CMBND ANTERPOST COLPORRAPHY W/CYSTO NE SLING OPER STRES INCONTINENCE NE CYSTOURETHROSCOPY Total Vaginal Hysterectomy, Bilateral Salpingectomy, Possible Right, left or Bilateral Oophorectomy, Uterosacral Ligament Suspension, Anterior Repair, Possible Posterior Repair, Placement of Retropubic Midurethral Mesh Sling, Cystoscopy . . . Referral ID Status Reason Start Date Expiration Date Visits Re quested Visits Authorized [id number] 1 1 Encounter Details Date Type Department Care Team (Late st Contact Info) Description 10/11/2023 7:30 AM EST Anesthesia Event [facility] [address] [place] [address] Jesus Stiles MD [address] [place] [address] [address] [place] [address] Rohit Paul MD [address] [place] [address] [place] [address] Anesthesia Record Procedure Summary Procedure Name Responsible Anesthesiologist Anesthesia Start Time Anesthesia Stop Time VAGINAL HYSTERECTOMY REMOVAL OF SINGLE FALLOPIAN TUBE (Right) Jesus Stiles MD 10/11/23 0730 10/11/23 1045 Events Date Time Event Comment 10/11/2023 0718 0723 AN Equip Check 0730 An Start 0732 An Start Data 0734 Immediate Pre Anesthetic Ass es 0734 An Induction 0738 An Intubation 0748 Anesthesia Ready 0759 Time out 0800 Incision 1042 An Emergence 1042 An Extubation 1042 an stop data 1045 Handoff I completed my SBAR handoff to the receiving nurse which has included the followin. Identification of the patient, family, or patient surrogate 2. Identification of the responsible practitioner 3. Pertinent medical history 4. Surgical procedure and reason for procedure 5. Intraoperative anesthetic management 6. All current lines, drains and respiratory support. 7. Outstanding follow up orders (X-rays, consults etc) 8. Expectations/Plans for the early post-procedure period 9. Opportunity for questions and acknowledgement of understanding from the receiving PACU/ICU cleaning team member 1045 An Stop Meds Name Total midazolam (VERSED) injection 1 mg/mL 2 m g lidocaine injection 1% 50 mg fentaNYL 50 MCG/ML INJ 200 mcg propofol (DIPRIVAN) injection 120 mg rocuronium (ZEMURON) 10 mg/mL injection 50 mg succinylcholine (ANECTINE) 20 mg/mL inje ction (EDG, ANSON, FTT) 80 mg dexamethasone (DECADRON) injection 4 mg/ mL 10 mg glycopyrrolate (ROBINUL) injection 0.2 m g sugammadex (BRIDION) 100 mg/mL injection 140 mg ceFAZolin (ANCEF) IVPB 2 g 2 g lidocaine 4 % ([id number]) laryngotrac heal solution 3 mL lactated ringers infusion 1,400 mL * Agents Name O2 Air Et Sevoflurane * Blood No blood administrations on file. Lines, Drains, and Airways Type Details Placement Removal Peripheral IV 10/11/23; 0641; 20; Right; Wrist; Deep neal RN; 2; 10/11/23; 1615; Therapy completed; Catheter intact, Dressing applied, No Complications 10/11/23 0641 by Lisbet Neal RN 10/11/23 1615 by Carolina Paris RN Airway Device: ETT- Cuffed; Size: 7 mm; Placement Date: 10/11/23; Placement Time: 0740 (created via procedure documentation); Removal Date: 10/11/23; Removal Time: 10410/11/23 0740 by Leigh Ann Hernandes CRNA 10/11/23 1042 by Leigh Ann Hernandes CRNA Urethral Catheter (Cintron) Placement Date: 10/11/23; Placement Time: 0830; Inserted By: DR GALLEGO; Type: Double-lumen; Balloon Size: 10 ml; Collection Container: Standard; Urine Returned: Yes; Location: OR; Removal Date: 10/11/23; Removal Time: 12410/11/23 0830 by Zayra Savage RN 10/11/23 1242 by Pam Sim RN Incision/Wound 10/11/23; 0831; No; Closed Surgical; Vagina; Inner; 10/11/23; 203510/11/23 0831 by Zayra Savage RN 10/11/232035 by Discharge Provider, Automatic Incision/Wound 10/11/23; 1001; Clos ed Surgical; Pubis; PUNCTURE X2; 10/11/23; 203510/11/23 1001 by Zayra Savage RN 10/11/232035 by Discharge Provider, Automatic documented in this encounter Social History Tobacco [...] AM EST documented as of this encounter Procedure Notes * Leigh Ann Hernandes CRNA - 10/11/2023 7:52 AM ESTAssociated Order(s): Intraop Airway Placement Intraop Airway Placement: Date/Time: 10/11/2023 7:40 AM Induction type: IV Mask size: Standard adult Pre-Oxygenation: Standard Mask ventilation: Easy mask ventilation Mask ventilation improved by: Kathy Technique: Video laryngoscope Laryngoscope blade: Brasher Blade size: 3 Grade view: I Airway type: ETT- cuffed Topical Anesthetic/Lubricant: None Intubation assist devices: Stylet 14fr Airway location: Oral Device size: 7mm Secured at: 21 cm Secured by: Tape Measured from: Lips Placement verified: Auscultation, End tidal CO2 and Symmetric chest wall motion Condition: Atraumatic Insertion attempts: 1 Title: DIMITRY lidocaine 4 % ([id number]) laryngotracheal solution - Laryngotracheal 3 mL - 10/11/2023 7:40:00 AM: documented in this encounter OR Notes * Anesthesia Postprocedure Evaluation - Rohit Paul MD - 10/11/2023 2:11 PM EST Post-Anesthesia Evaluation Note Patient Name: Marguerite Martinez Patient Date: October 11, 2023 Post-Anesthesia Evaluation Patient Location: [facility] Post op vitals: stable Nausea controlled: yes Level of consciousness: awake, alert and oriented Post anesthesia pain: adequate analgesia Long acting local anesthetic: n/a Airway patency: patent Respiratory status: room air and spontaneous ventilation Cardiovascular status: stable Hydration status: euvolemic Temperature: Normothermia Perioperative complications: NONE Vitals Value Taken Time BP 149/77 10/11/23 1230 Resp 15 10/11/23 1230 SpO2 98 % 10/11/23 1230 Temp 36.9 ??C (98.4 ??F) 10/11/23 1243 Pulse 92 10/11/23 1230 * Anesthesia Preprocedure Evaluation - Rohit Paul MD - 09/22/2023 7:53 AM EST Pre-Anesthesia Evaluation Note Patient Name: Marguerite Martinez Sex: female Patient : 1960 Age: 63 y.o. Patient Date: September 22, 2023 Procedure(s): Total Vaginal Hysterectomy, Bilateral Salpingo, Possible Oophorectomy, Uterosacral Ligament Suspension, Anterior Repair, Possible Posterior Repair, Placment of Retropubic Midurethral Mesh Sling, Cystoscopy . . . Anesthesia Evaluation Previous anesthesia. No history of anesthetic complications: No family history of anesthesia complications: Airway Mallampati: II TM distance: >3 FB Neck ROM: full Dental - normal exam Dental exam findings: upper partials Pulmonary - negative ROS (+) Physical exam: Comments: Clear to auscultation Cardiovascular - negative ROS (+)Exercise tolerance: good Physical exam: Rhythm: regular Rate: normal (-) no angina, no shortness of breath, no murmur, carotid bruit is not present, no peripheral edema Neuro/Psych (+) Back or neck pain: GI/Hepatic/Renal Comments: Stress incontinence Endo/Other (+)Arthritis: E BUSINESS SPECIALIST Comments: DUB Complete uterovaginal prolapse (+) Non childbearing due to: Menopause Additional Pre-evaluation comments Ordered cbc, t/s 08/2023 CMP reviewed from PCP scanned into media EKG 08/2023 from PCP scanned into media under H/P preop NSR, poor R wave progression Opioids There is no height or weight on file to calculate BMI. Anesthesia Plan ASA 3 Last solid intake: The patient has not eaten within the last 8 hours. Last clear liquid intake: The patient has not had clear liquids within the last 2 hours. Anesthesia Plan: general Induction: intravenous Monitors: STD Ordered ERAS and emend Informed consent Anesthetic plan and risks discussed with: patient. Chart Reviewed and patient examined documented in this encounter Plan of Treatment Not on file documented as of this encounter Procedures Procedure Name Priority Date/Time Associated Diagnosis Comments INTRAOP AIRWAY PLACEMENT Routine 10/11/2023 7:40 AM EST documented in this encounter Results * INTRAOP AIRWAY PLACEMENT (10/11/2023 7:40 AM EST) Narrative [facility] - 10/11/2023 7:40 AM EST Greta, Leigh Ann, DIMITRY ? 10/11/2023 ??7:53 AM Intraop Airway Placement: Date/Time: 10/11/2023 7:40 AM ??Induction type: ??IV ??Mask size: ??Standard adult ??Pre-Oxygenation: ??Standard ??Mask ventilation: ??Easy mask ventilation ??Mask ventilation improved by: ??Chinlift ??Technique: ??Video laryngoscope ??Laryngoscope blade: ??Brasher ??Blade size: ??3 ??Grade view: ??I ??Airway type: ??ETT- cuffed ??Topical Anesthetic/Lubricant: ??None ??Intubation assist devices: ??Stylet 14fr ??Airway location: ??Oral ??Device size: ??7mm ??Secured at: 21 cm ??Secured by: ??Tape ??Measured from: ??Lips ??Placement verified: ??Auscultation, End tidal CO2 and Symmetric chest wall motion ??Condition: ??Atraumatic ??Insertion attempts: ??1 ??Title: ??WEAVE ROOM SUPERVISOR lidocaine 4 % ([id number]) laryngotracheal solution - Laryngotracheal 3 mL - 10/11/2023 7:40:00 AM: us Jesus English MD SNELL ANESTHESIA Final Result Performing Organization Address City/State/[facility] Co de Phone Number [facility] [address] [place] [address] documented in this encounter Visit Diagnoses Not on filedocumented in this encounter Administered Medications Inactive Administered Medications - up to 1 most recent administrations Medication Order MAR Action Action Date Dose Rate Site ceFAZolin (ANCEF) IVPB 2 g 2 g, Intravenous, ONCE PREPROCEDURE, 1 dose, On Wed10/11/23 at 0615, Administer over 30 Minutes, Give 30 minutes prior to procedure. For patients weighing less than (<) 120 kg., Reason for Therapy: Surgical Prophylaxis, Pre-op (Antibiotic), Dx: 1. Complete uterovaginal prolapse 2. PMB (postmenopausal bleeding) 3. DAVID (stress urinary incontinence, female)Indications:Complete uterovaginal prolapse,PMB (postmenopausal bleeding),DAVID (stress urinary incontinence, female) Given 10/11/2023 7:32 AM EST 2 g dexAMETHasone (DECADRON) injection Intravenous, PRN (Anesthesia), Starting on Wed10/11/23 at 0746, Until Wed10/11/23 at 1046, Anesthesia Intra-op Given 10/11/2023 7:46 AM EST 10 mg fentaNYL (SUBLIMAZE) injection Intravenous, PRN (Anesthesia), Starting on Wed10/11/23 at 0736, Until Wed10/11/23 at 1046, Anesthesia Intra-op Given 10/11/2023 10:30 AM EST 25 mcg glycopyrrolate (ROBINUL) injection Intravenous, PRN (Anesthesia), Starting on Wed10/11/23 at 0833, Until Wed10/11/23 at 1046, Anesthesia Intra-op Given 10/11/2023 8:33 AM EST 0.2 mg lactated ringers infusion Intravenous, at 100 mL/hr, PREPROCEDURE CONTINUOUS, Starting on Wed10/11/23 at 0613, Until Wed10/11/23 at 2041, To be given in SDS/Pre-op Holding Area, Pre-op (Holding/SDS Meds) New Bag 10/11/2023 1:12 PM EST 100 m L/hr lidocaine 1% 10 mg/mL (1 %) injection Intravenous, PRN (Anesthesia), Starting on Wed10/11/23 at 0736, Until Wed10/11/23 at 1046, Anesthesia Intra-op Given 10/11/2023 7:36 AM EST 50 mg lidocaine HCl ([id number]) 4 % topical solution Laryngotracheal, Starting on Wed10/11/23 at 0740, Until Wed10/11/23 at 0740, Anesthesia Intra-op Given 10/11/2023 7:40 AM EST 3 mL midazolam (VERSED) injection Intravenous, PRN (Anesthesia), Starting on Wed10/11/23 at 0729, Until Wed10/11/23 at 1046, Anesthesia Intra-op Given 10/11/2023 7:29 AM EST 2 mg propofoL (DIPRIVAN) injection Intravenous, PRN (Anesthesia), Starting on Wed10/11/23 at 0736, Until Wed10/11/23 at 1046, Anesthesia Intra-op Given 10/11/2023 7:36 AM EST 120 mg rocuronium injection Intravenous, PRN (Anesthesia), Starting on Wed10/11/23 at 0746, Until Wed10/11/23 at 1046, Anesthesia Intra-op Given 10/11/2023 9:45 AM EST 10 mg succinylcholine (ANECTINE) injection Intravenous, PRN (Anesthesia), Starting on Wed10/11/23 at 0736, Until Wed10/11/23 at 1046, Anesthesia Intra-op Given 10/11/2023 7:36 AM EST 80 mg sugammadex (BRIDION) injection Intravenous, PRN (Anesthesia), Starting on Wed10/11/23 at 1011, Until Wed10/11/23 at 1046, Anesthesia Intra-op Given 10/11/2023 10:11 AM EST 140 mg documented in this encounter Care Teams Spool Worker Relationship Specialty Start Date End Date Jean Davila MD [address] [place] [address] PCP - General Family Medicine 10/04/23 documented as of this encounter
--- OUTSIDE RECORDS SUMMARY | 2024-08-04 08:35 | XMS_ITS | Encounter Summary ---
Author Organization [place] [address] Care Team Providers Care Food Mobile Driver Name Role Phone Jean Davila MD Primary Care Provider [phone] Encounter Details Date Type Department Care Team (Late st Contact Info) Description 10/04/2023 Orders Only [facility] [address] [address] Glenis Layne LPN Complete uterovaginal prolapse (Primary Dx); PMB (postmenopausal bleeding); DAVID (stress urinary incontinence, female) Social History Tobacco Use Types Packs/Day Years [...] AM EST documented as of this encounter Progress Notes * Glenis Layne LPN - 10/04/2023 9:56 AM EST Images from the original note were not included. documented in this encounter Plan of Treatment Not on file documented as of this encounter Visit Diagnoses Diagnosis Complete uterovaginal prolapse- Primary Uterovaginal prolapse, complete PMB (postmenopausal bleeding) Postmenopausal bleeding DAVID (stress urinary incontinence, female) Female stress incontinence documented in this encounter Care Teams Food Mobile Driver Relationship Specialty Start Date End Date Jean Davila MD [address] [place] [address] PCP - General Family Medicine 10/04/23 documented as of this encounter
--- OUTSIDE RECORDS SUMMARY | 2024-08-04 08:35 | XMS_ITS | Encounter Summary ---
[facility] Address [address] [place] [address] Care Team Providers Care Call Or Contact Centre Manager Name Role Phone Pia Murcia APRN Primary Care Provider [phone] Encounter Details Date Type Department Care Team (Late st Contact Info) Description 07/14/2024 Telephone [facility] [address] [facility] [address] [place] [address] Roselia Burks APRN [address] [facility] [address] [place] [address] Social History Tobacco Use Types Packs/Day Years [...] encounter Miscellaneous Notes * Telephone Encounter - Bety Singh MA - 07/14/2024 4:13 PM EDT Called pt with results of recent lab work per Roselia Burks APRN Electrolytes and kidney function were normal. No evidence of blood clots or heart failure. When I get her echocardiogram results back, I will let her know. I will have CARLIE Albert call the patient back with results/recommendations. I was able to get her CHELSEA results from [facility] which showed no evidence of stenosis/occlusion bilaterally. PT was agreeable and verbalized understanding documented in this encounter Plan of Treatment Upcoming Encounters Date Type Department Care Team (Late st Contact Info) Description 10/25/2024 9:40 AM EST Office Visit [facility] [address] [facility] [address] [place] [address] Roselia Burks, STATOR TESTER [address] [facility] [address] [place] [address] documented as of this encounter Visit Diagnoses Not on filedocumented in this encounter Care Teams Call Or Contact Centre Manager Relationship Specialty Start Date End Date Pia Murcia, STATOR TESTER [address] [place] [address] PCP - General Nurse Practitioner 07/06/24 documented as of this encounter
--- OUTSIDE RECORDS SUMMARY | 2024-08-04 08:35 | XMS_ITS | Encounter Summary ---
Author Organization [place] [address] Care Team Providers Care Coke Loader Name Role Phone Jean Davila MD Primary Care Provider [phone] Reason for Referral * MRI/CAT Scan (Routine) - Pending Review Specialty Diagnoses / Procedures Referred By Deon rizo Referred To Contact Radiology Diagnoses Nausea and vomiting, unspecified vomiting type Status post surgery Procedures CT ABDOMEN PELVIS W WO CONTRAST Penny Ferguson PA-C [address] [place] [address] Phone: tel: fax: Referral ID Status Reason Start Date Expiration Date V isits Requested Visits Authorized [id number] Pending Review 10/13/2023 10/12/2024 1 1 Reason for Visit * Reason Onset Date Comments Other 10/13/2023 Encounter Details Date Type Department Care Team ([facility] Contact Info) Description 10/13/2023 Telephone SEP Urogynecology [address] [address] Mary Rodriguez MA Other Social History Tobacco Use Types Packs/Day Years [...] encounter Miscellaneous Notes * Telephone Encounter - Penny Farmer PA - 10/13/2023 1:54 PM EST BHARATHI Villeda. Thanks Lee Ann! * Telephone Encounter - Wendy Miles MA - 10/13/2023 1:39 PM EST Pt's daughter, Skye, called. Skye questioned why a CT was ordered and if it needed to be completed despite coming into the office tomorrow for a TOV. Informed Skye that it was 's recommendation to rule out any GI issues that may be causing or contributing to the pt's symptoms. However, it is always up to the pt to decide if she would like to move forward with this recommendation. Pt's daughter, Skye, verbalized understanding and stated that she will see how tomorrow goes and go from there but at this moment she'd like to hold off on getting the pt's CT completed. Informed Skye that I would let know. * Addendum Note - Moe Nieves MA - 10/13/2023 1:14 PM ESTAddended by: MOE NIEVES on: 10/13/2023 01:14 PM Modules accepted: Orders * Telephone Encounter - Moe Nieves MA - 10/13/2023 1:12 PM EST Pt informed. Pt stating she is starting to feel a little better. Pt stated she is getting adequate return of urine into catheter bag. Pt declined CT as she wouldn't be able to get there . Order placed just in case pt gets transportation. Pt stated she will double up on 4mg Zofran * Telephone Encounter - Penny Farmer PA - 10/13/2023 11:44 AM EST Spoke with Dr. Villeda: -Okay for patient to take Zofran 8 mg -Please make sure the catheter is draining okay (nausea can be a symptom of retention) -Let's go ahead and order a CT scan to r/o any GI concerns Thanks! Yeni * Telephone Encounter - Tatiana Garcia MA - 10/13/2023 10:51 AM EST Patient's daughter called in to say that Marguerite is still dry heaving really bad. Zofran not helping.They are asking if there is anything else she can try. Please advise. * Telephone Encounter - Penny Farmer PA - 10/13/2023 10:25 AM EST Please ask about bowel movements and make sure she is drinking plenty of fluids also. Thanks! Yeni * Telephone Encounter - Penny Farmer PA - 10/13/2023 10:[address] Villeda - are you okay with this patient taking 8 mg of Zofran? Any other thoughts? * Telephone Encounter - Mary Rodriguez MA - 10/13/2023 9:10 AM EST Patient daughter called to cancel TOV due to pt not feeling well. Pt denies short of breath, or major bleeding. she just feels nauseated, and has a cough. I spoke with Dr Villeda and stated the patientcan have her TOV next week when she is feeling better. Patient daughter scheduled TOV for Wednesday. She asked If there is anything the patient can take for the nausea, light headedness, and dizziness, zofran is not working. Please advise. documented in this encounter Plan of Treatment Scheduled Orders Name Type Priority Associated Diagnoses Orde r Schedule CT ABDOMEN PELVIS W WO CONTRAST Imaging Routine Nausea and vomiting, unspecified vomiting type Status post surgery 1 Occurrences starting 10/13/2023 until 10/13/2024 documented as of this encounter Visit Diagnoses Diagnosis Nausea and vomiting, unspecified vomiting type- Primary Status post surgery documented in this encounter Care Teams Coke Loader Relationship Specialty Start Date End Date Jean Davila MD [address] [place] [address] PCP - General Family Medicine 10/04/23 documented as of this encounter
--- OUTSIDE RECORDS SUMMARY | 2024-08-04 08:35 | XMS_ITS | Encounter Summary ---
Author Organization [place] [address] Care Team Providers Care Occupational Psychologist Name Role Phone Jean Davila MD Primary Care Provider [phone] Reason for Visit * Reason Comments Procedure TOV Encounter Details Date Type Department Care Team (Latest Contact Info) Description 10/14/2023 10:00 AM EST Clinical Support SEP Urogynecology [address] [phone] Tatiana Garcia MA DAVID (stress urinary incontinence, female) (Primary Dx) Social History Tobacco Use Types Packs/Day Years [...] as of this encounter Progress Notes * Tatiana Garcia MA - 10/14/2023 10:00 AM EST NURSE VISIT - CATHETER REMOVAL 250 ML STERILE WATER ADDED 200 ML VOIDED IN HAT RINCON CATHETER: Removed PLAN: 1) call office if any issues or questions 2) call office if signs or symptoms of a UTI 3) call office if unable to void (urinate) after 4 hours Tatiana Garcia MA documented in this encounter Plan of Treatment Not on file documented as of this encounter Visit Diagnoses Diagnosis DAVID (stress urinary incontinence, female)- Primary Female stress incontinence documented in this encounter Care Teams Occupational Psychologist Relationship Specialty Start Date End Date Jean Davila MD [address] [place] [address] PCP - General Family Medicine 10/04/23 documented as of this encounter
--- OUTSIDE RECORDS SUMMARY | 2024-08-04 08:35 | XMS_ITS | Encounter Summary ---
Author Organization [place] [address] Care Team Providers Care Harp Maker Name Role Phone Jean Davila MD Primary Care Provider [phone] Reason for Visit * Reason Onset Date Comments Post-op Call 10/13/2023 Encounter Details Date Type Department Care Team (Late st Contact Info) Description 10/13/2023 Telephone SEP Urogynecology [address] [phone] Glenis Layne LPN Post-op Call Social History Tobacco Use Types Packs/Day Years [...] encounter Miscellaneous Notes * Telephone Encounter - Glenis Layne LPN - 10/13/2023 1:17 PM ESTSummary: Post Op Call Urogynecology Post Operative Phone Call Telephone call to Marguerite Martinez who is 2 days s/p Total Vaginal Hysterectomy, RIGHT Salpingectomy, Uterosacral Ligament Suspension, Anterior Repair, Posterior Repair, ENTEROCELE REPAIR Placement of Retropubic Midurethral Mesh Sling, Cystoscopy, VAGINAL AND VULVAR BIOPSY -No issues with urination or having a bowel movement. -Pain is under control -Ambulating without assistance -Denies vaginal bleeding. -Eating and drinking normally. Denies CP/SOB/V/Fever, Patient states she has been very nauseated but it is improving now Void trial and 6 week PO visit are scheduled Questions elicited and answered. Kelsie Layne LPN documented in this encounter Plan of Treatment Not on file documented as of this encounter Visit Diagnoses Not on filedocumented in this encounter Care Teams Harp Maker Relationship Specialty Start Date End Date Jean Davila MD [address] [place] [address] PCP - General Family Medicine 10/04/23 documented as of this encounter
--- OUTSIDE RECORDS SUMMARY | 2024-08-04 08:35 | XMS_ITS | Encounter Summary ---
Author Organization [place] [address] Care Team Providers Care Civil Design Technician Name Role Phone Jean Davila MD Primary Care Provider [phone] Reason for Visit * Auth/Cert/Inpt (Routine) Specialty Diagnoses / Procedures Referred By Deon t Referred To Contact Diagnoses Complete uterovaginal prolapse PMB (postmenopausal bleeding) Endometrial stripe increased DAVID (stress urinary incontinence, female) Complete uterovaginal prolapse [N81.3] PMB (postmenopausal bleeding) [N95.0] Endometrial stripe increased [R93.89] DAVID (stress urinary incontinence, female) [N39.3] Procedures OH VAG HYST,RMV TUBE/OVARY OH REPR VAGINAL PROLAPSE,UTEROSACRAL OH CMBND ANTERPOST COLPORRAPHY W/CYSTO OH SLING OPER STRES INCONTINENCE OH CYSTOURETHROSCOPY Total Vaginal Hysterectomy, Bilateral Salpingectomy, Possible Right, left or Bilateral Oophorectomy, Uterosacral Ligament Suspension, Anterior Repair, Possible Posterior Repair, Placement of Retropubic Midurethral Mesh Sling, Cystoscopy . . . Referral ID Status Reason Start Date Expiration Date Visits Re quested Visits Authorized [id number] 1 1 Encounter Details Date Type Department Care Team (Latest Contact Info) Description 10/11/2023 6:10 AM EST - 10/11/2023 4:36 PM EST Hospital Encounter [facility] SAME DAY SURGERY [address] [place] [address] Chika Johnson MD [address] [place] [address] Complete uterovaginal prolapse; PMB (postmenopausal bleeding); DAVID (stress urinary incontinence, female); Endometrial stripe increased Discharge Disposition: Home or Self Care Social [...] Pressure 143/74 10/11/2023 4:10 PM EST Pulse 85 10/11/2023 4:10 PM EST Temperature 36.3 ??C (97.3 ??F) 10/11/2023 4:10 PM ES T Respiratory Rate 18 10/11/2023 4:10 PM EST Oxygen Saturation 95% 10/11/2023 4:10 PM EST Inhaled Oxygen Concentration - - Weight 64.9 kg (143 lb) 10/11/2023 6:15 AM EST Height - - Body Mass Index 25.33 09/22/2023 9:12 AM EST documented in this encounter Discharge Instructions * Discharge Instructions* Chika Johnson MD - 10/11/2023 7:18 AM EST [facility] UROGYNECOLOGY Chika Johnson MD FACOG Yeni Farmer PA-C [address] [place] [address], [id number] Thank you for allowing us to care for you! It was a pleasure taking care of you during your surgeryat [facility]! Dr. Villeda and her team are always available for any questions or concerns after your surgery. As always, you can reach our staff during normal business hours by using the One [facility] EMR experience to send us an email at: [email or web address] FOLLOW UP APPOINTMENTS Upon leaving the hospital, you should call [phone] during normal business hours to schedule follow-up appointments. You will need to be seen for the following: If you go home with a catheter, call to schedule a nurse visit in the office in 1-2 days Six-week follow-up with Yeni Farmer PA-C (Dr. Villeda's Physician Hot Wire Glass Tube Cutter) WHAT MEDICATIONS CAN I TAKE? After surgery [...] a single multivitamin, which you can buy ApiFix. Drink lots of fluids - about EIGHT [...] call: (7:30 a.m. to 4:00 p.m. Wednesday-Wednesday) [facility] For non-life threatening emergencies only outside of normal business hours, please call the above number and follow prompts for the glass deposition tender provider. Leave your full name with spelling AND your date of . The doctor will call you back as soon as possible. If you have not received a call back in30 minutes, please page the Doctor again For any life-threatening emergencies call [phone]. +++++++++++++++++++++++++++++++++++++++++++++++++++++++++++++++++++ [facility] Discharge Instructions - Following Anesthesia We [...] our office at . Get Well Soon! [employer] [facility] +++++++++++++++++++++++++++++++++++++++++++++++++++++++++++++++++++ documented in this encounter Medications [...] Means Destination Comment s Home or Self Senior Living documented in this encounter H&P Notes * [...] Place vaginally two times a week. See SYSTEM DESIGNER Meds: No Known Allergies Social History Socioeconomic [...] . . . per Chika Johnson, * Mic Velazquez MD 10/11/23 documented in this encounter Procedure Notes * Chika Johnson MD - 10/11/2023 10:51 AM EST Images from the original note were not included. OPERATIVE NOTE Marguerite Martinez October 11, 2023 Body mass index is [...] Role: * Chika Johnson MD - Primary COMMUNITY HEALTH NURSE SUPERVISOR(S): OR staff ANESTHESIA: General SPECIMENS: ID Type [...] Name Model No. Serial No. Lot No. High Lead Yarder LRB No. Used Action DESARA BLUE TV TRANSVAGINAL MESH SLING - [id number] [facility]-[id number] [facility] N/A 1 Implanted EBL: 50 mL FINDINGS: [...] placed in the dorsal lithotomy position in [facility]-cane stirrups. She was prepped and draped in the normal sterile fashion. A Mathis catheter was placed in the bladder. First, small excisional left vulvar and vaginal biopsies of the leukoplakia noted above were taken and sent to pathology for routine processing. The vulvar biopsy incision was closed with a single 3-0 Vicryl [id number] suture and was noted to be hemostatic. The vaginal biopsy was made hemostatic with Bovie cautery. HYSTERECTOMY A weighted retractor was placed in the posterior vagina and the anterior vagina retracted with a Barney retractor. 1% lidocaine with dilute epinephrine was [...] anterior peritoneum was entered sharply and a Aliza placed to elevate the bladder and ureters [...] identified and followed to the fimbria using [place] graspers. The proximal portion of the tube and mesosalpinx were clamped, cut and the pedicle double suture ligated, first with a 2-0 Vicryl free tie followed by 2-0 Vicryl transfixion suture. The left fallopian tube was grasped with a Karel and gentle traction was placed on the [...] Johnson MD - 10/11/2023 10:45 AM EST [facility] OPERATIVE/PROCEDURE NOTE Martinez Marguerite Ren October 11, 2023 Body mass index [...] Role: * Chika Johnson MD - Primary COMMUNITY HEALTH NURSE SUPERVISOR(S): OR staff ANESTHESIA: General SPECIMENS: ID Type [...] RN - 10/11/2023 1:31 PM EST #14 cuban mathis inserted with 10ml balloon 350 ml [...] Johnson MD - 10/07/2023 1:10 PM EST [facility] INFORMED CONSENT NOTE Patient: Marguerite Martinez Date: October 07, 2023 PROCEDURE(S): Total Vaginal Hysterectomy, Bilateral Salpingectomy, Possible Right, left or Bilateral Oophorectomy, Uterosacral Ligament Suspension, Anterior Repair, Possible Posterior Repair, Placement of Retropubic Midurethral Mesh Sling, Cystoscopy . . . I attest that the patient/patient telephone service representative has been counseled as to the potential benefits, risks, and side effects to the planned surgical treatment, including the likelihood of success and potential problems that might occur during recuperation. The patient/patient telephone service representative has also been counseled as to the alternatives to this intervention, including possible results of not having this intervention performed and benefits and risks of these alternatives. If a non-autologous graft is planned, I have additionally discussed the risks, benefits, and alternatives to the use of such grafts. The patient/patient telephone service representative has given their consent to proceed with this intervention after having their questions sufficiently answered. [employer] used: sandra Johnson MD Date: 10/07/2023 [...] AM EST) CASE REPORT Surgical Pathology ?Case: [id number] ? Authorizing Provider: ??Chika Johnson MD Collected: ? 10/11/2023 0801 ? Ordering Location: ? [facility] ?Received: ?10/11/2023 1139 ? Pathologist: ? Patito Crystal, ? Specimens: ?? A) - Vulva, vulvar biopsy ? B) - Vagina, vaginal biopsy ? C) - Uterus, CERVIX, UTERUS AND RIGHT FALLOPIAN TUBE ? 10/16/2023 3:16 PM [facility] FINAL DIAGNOSIS A. Vulvar biopsy : [...] no significant histopathologic abnormality 10/16/2023 3:16 PM [facility] ENT Part A lacks significant subepithelial [...] with immunostains is reviewed in consult with agreement./ZULEYMA 10/16/2023 3:16 PM [facility] GROSS DESCRIPTION A. Received in formalin in a container labeled with the patient's name, MRN, and vulvar biopsy, is a 0.7 x 0.4 x 0.1 cm ordoñez-white and irregular tissue fragment. The specimen is inked blue, bisected, and entirely submitted in A1. PARAG Moncada PA ([facility]) 10/12/2023 9:55 AM B. Received in formalin in a container labeled the patient's name, MRN, and vaginal biopsy, is a 0.8 x 0.2 x 0.2 cm ordoñez-white and linear tissue fragment. The specimen is inked blue, bisected, and entirely submitted in B1. PARAG Moncada PA ([facility]) 10/12/2023 9:55 AM C. Received in formalin, [...] in diameter. Sectioning reveals unremarkable cut surfaces. Fish Smoker sections are submitted as follows: C1: Anterior endoectocervix C2: Posterior endoectocervix C3: Anterior endomyometrium, full-thickness C4-C5: Anterior endomyometrium to include entire polyp C6: Posterior endomyometrium, full-thickness C7: Entire detached fallopian tube cross-sections and bisected fimbriated end PARAG Moncada,FILIBERTO ([facility]) 10/12/2023 9:55 AM 10/16/2023 3:16 PM EST [facility] MICROSCOPIC DESCRIPTION Microscopic examination is performed and the findings corroborate the diagnosis. 10/16/2023 3:16 PM EST [facility] SPECIAL STAINS Part A and B - p16 ( negative), p53 ( wild patchy) ,ki67 ( not increased). 10/16/2023 3:16 PM EST [facility] EMBEDDED IMAGES 10/16/2023 3:16 PM [facility] Tissue SPECIMEN FROM VULVA / Unknown 10/11/2023 8:01 AM EST 10/11/2023 11:39 AM EST Tissue specimen (specimen) SPECIMEN FROM VAGINA / Unknown 10/11/2023 8:06 AM EST 10/11/2023 11:39 AM EST Tissue specimen (specimen) UTERINE STRUCTURE / Unknown 10/11/2023 8:56 AM EST 10/11/2023 11:39 AM EST us Chika Johnson MD PATHOLOGY ORDERABLES nal Result Performing Organization Address City/State/[facility] Co de Phone Number [facility] [address] [place] [address] [phone] documented in this encounter Visit Diagnoses Diagnosis Complete uterovaginal prolapse- Primary Uterovaginal prolapse, complete Complete uterovaginal prolapse Uterovaginal prolapse, complete PMB (postmenopausal bleeding) Postmenopausal bleeding DAVID (stress urinary incontinence, female) Female stress incontinence Endometrial stripe increased Nonspecific (abnormal) findings on radiological and other examination of genitourinary organs PMB (postmenopausal bleeding) Postmenopausal bleeding DAVID (stress urinary incontinence, female) Female stress incontinence Post-operative state Other postprocedural status documented in this encounter Admitting Diagnoses Diagnosis [...] Given 10/11/2023 11:51 AM EST 50 mcg granisetron (KYTRIL) injection 1 mg 1 mg, Intravenous, ONCE PREPROCEDURE, 1 dose, On Wed10/11/23 at 0615, Pre-op (Holding/SDS Meds) Given 10/11/2023 6:56 AM EST 1 [...] on Wed10/11/23 at 0613, Until Wed10/11/23 at 204, To be given in SDS/Pre-op Holding Area, Pre-op (Holding/SDS Meds) New Bag 10/11/2023 1:12 PM EST 100 mL/hr meperidine (DEMEROL) injection (PF) 12.5 mg 12.5 [...] VESICANT , PACU documented in this encounter Active and Recently [...] PACU 1259 (Given - Provid er: Carolina Paris RN) oxyCODONE (ROXICODONE) immediate release tablet 5 mg [...] (DRAMAMINE) i njection 12.5-50 mg 1 10/11/2023 gelatin adsorbable (GELFOAM) 100 sponge 1 0 10/11/2023 HYDROmorphone (DILAUDID) injection 0.25 mg 1 10/11/2023 lactated Ringers irrigation solution 1 09/14 lidocaine-EPINEPHrine 1 %-1: 100,000 injection 1 10/11/2023 meperidine (DEMEROL) injecti on (PF) 12.5 mg 1 10/11/2023 ondansetron (ZOFRAN-ODT) dis integrating tablet 8 mg 1 10/11/2023 promethazine (PHENERGAN) 12. 5 mg in sodium chloride 0.9% 10 mL injection 1 10/11/2023 promethazine (PHENERGAN) 6.2 5 mg in sodium chloride 0.9% 10 mL injection 1 10/11/2023 sodium chloride 0.9 % irrigation 10/11/19 sodium chloride 0.9% injecti on/flush solution 1 10/11/2023 Admission Count Last Ordered Date First Orde red Date ADMIT 1 10/11/2023 Discharge Count Last Ordered Date First Orde red Date DISCHARGE PATIENT 10/11/2023 documented in this encounter Care Teams Civil Design Technician Relationship Specialty Start Date End Date Jean Davila MD [address] [place] [id number] PCP - General Family Medicine 10/04/23 documented as of this encounter
--- OUTSIDE RECORDS SUMMARY | 2024-08-04 08:35 | XMS_ITS | Encounter Summary ---
Author Organization [place] [address] Care Team Providers Care Administrative Support Assoc Name Role Phone Jean Davila MD Primary Care Provider [phone] Reason for Visit * Reason Onset Date Comments Other 10/15/2023 post op pain and nausea Encounter Details Date Type Department Care Team (Late st Contact Info) Description 10/15/2023 Telephone SEP Urogynecology [address] [address] Jim Nieves MA Other (post op pain and nausea) Social History Tobacco Use Types Packs/Day Years [...] AM EST documented as of this encounter Ordered Prescriptions Prescription Sig Dispense Quantity Refills Last Filled Start Date End Date ondansetron (ZOFRAN-ODT) 4 mg Oral Tablet, Rapid DissolveIndication s:Nausea and vomiting, unspecified vomiting type Take 2 Tablets by mouth as needed for Nausea for up to 30 days. 60 Tablet 10/15/2023 documented in this encounter Miscellaneous Notes * Telephone Encounter - Mary Rodriguez MA - 10/18/2023 8:16 AM EST Patient called stating she think she has thrush, informed me she is only taking the tylenol. I informed patient to call her PCP patient verbalized understanding. * Addendum Note - Wendy Miles MA - 10/15/2023 9:08 AM ESTAddended by: WENDY MILES on: 10/15/2023 09:08 AM Modules accepted: Orders * Telephone Encounter - Wendy Miles MA - 10/15/2023 9:00 AM EST Pt accepted Zofran 8mg offer. Meds sent to confirmed pharmacy. Pt confirmed she is urinating fine but has had stool and urine leakage. Questioned if pt was experiencing any UTI symptoms such as hematuria, dysuria, cloudy or foul smelling urine. Pt denied all possible symptoms. Pt questioned if it would be alright to take the Miralax only once a day as she has been experiencing stool leakage. Informed pt that once a day should be fine but if she starts to have harder stool then I would recommend to go back to twice a day as we don't want her to strain. Pt verbalized understanding. Encouraged pt again to obtain a CT scan to rule out any GI issues. Pt denied. * Telephone Encounter - Penny Farmer PA - 10/15/2023 8:42 AM EST Staff - please review my prior recommendations from patient's prior calls about nausea. -Yes, Tramadol can cause nausea. Agree with Jim's recommendations. -She can take Zofran 8 mg -Please make sure she is peeing okay, even though she just passed her TOV yesterday (nausea can be a symptom of retention) -Again encourage her to obtain the CT scan that we recommended to r/o any GI concerns Thanks! Yeni * Telephone Encounter - Jim Nieves MA - 10/15/2023 8:30 AM EST Pt stated that she has zero energy and is so tired . I explained to pt that this is one of the most common complaints of the surgery. Pt is also complaining of being severely nauseous and is concerned that the tramadol is causing this. Pt is wanting to know if there is anything else she can try for pain since she is thinking the tramadol is making her sick. I informed pt that she could alternatetylenol and ibuprofen to see if that helps with the pain without causing nausea. Pt denied all other red flag symptoms and stated she is urinating fine and having soft, frequent BM. Pt denied taking Pyridium. documented in this encounter Plan of Treatment Not on file documented as of this encounter Visit Diagnoses Diagnosis Nausea and vomiting, unspecified vomiting type- Primary documented in this encounter Care Teams Administrative Support Assoc Relationship Specialty Start Date End Date Jean Davila MD [address] [place] [address] PCP - General Family Medicine 10/04/23 documented as of this encounter
--- OUTSIDE RECORDS SUMMARY | 2024-08-04 08:36 | XMS_ITS | Encounter Summary ---
Author Organization [place] [address] Care Team Providers Care Electrical Assistant Name Role Phone Jean Davila MD Primary Care Provider [phone] Reason for Visit * Reason Onset Date Comments Other 08/31/2023 FMLA Paperwork C ompletion Encounter Details Date Type Department Care Team (Late st Contact Info) Description 08/31/2023 Telephone SEP Urogynecology [address] [address] Glenis Layne LPN Other (FMLA Paperwork Completion) Social History Tobacco Use Types Packs/Day Years Used Date Smoking Tobacco: Never Smokeless Tobacco: Never Comments No Sex and Gender Information Value [...] Telephone Encounter - Glenis Layne LPN - 11/16/2023 8:29 AM EST ADDITIONAL FMLA completed. Faxed to Alejandro at [phone] Called Patient to let her know it has been faxed and I'm mailing her a copy. Copies placed in scan pile to be scanned. Claim #: [id number] Associate WIN: [id number] RTW: 11/22/23 without restrictions * Telephone Encounter - Glenis Layne LPN - 08/31/2023 3:50 PM EST FMLA completed. Faxed to Alejandro at [phone] or [phone] Called Patient to let her know ithas been faxed and I'm mailing her a copy. Copies placed in scan pile to be scanned. Claim #: [id number] Associate WIN: [id number] Estimated RTW: 11/23/23 documented in this encounter Plan of Treatment Not on file documented as of this encounter Visit Diagnoses Not on filedocumented in this encounter Care Teams Electrical Assistant Relationship Specialty Start Date End Date Jean Davila MD [address] [place] [address] PCP - General Family Medicine 10/04/23 documented as of this encounter
--- OUTSIDE RECORDS SUMMARY | 2024-08-04 08:36 | XMS_ITS | Clinical Summary ---
Author Organization [facility] , [facility] Address [address] [place] [address] Phone Care Team Providers Care Air Quality Chemist Name Role Phone Bryce MERINO, Lio Holcomb Unavailable [phone] Reason for Visit and Chief Complaint Epidural Steroid Injection Problems Includes: Problems addressed during this encounter and other active Problems All Visits Onset Date Resolved Date Provider Condition S tatus Lower Back Pain 08/03/2024 Lio Wu MD Act césar Last Documented On 4 8:57AM ; [facility] Plan of Treatment Future Appointments Date Time Location Provi ck Epidural Steroid Injection 08/16/2024 10:[facility] O[facility] CRNA Last Documented On 4 11:58AM ; [facility] Follow Up 09/28/2024 8:00AM [facility] EVIN Wu MD Last Documented On 4 11:59AM ; [facility] Assessments Includes: Assessments from this encounter No Assessments Recorded Medical Equipment - Implanted Devices Includes: Current Devices No Medical Equipment Recorded Medications Includes: Medications discussed during this encounter and other current Medications Current Medications (continue as prescribed) traMADol HCl 50 MG Oral Tablet 08/01/2024 Provider: Pia Murcia APRN Diagnosis: Last Documented On 4 8:59AM By Jim Gann ; [facility], [facility] Methocarbamol 750 MG Oral Tablet 07/31/2024 Provider : Pia Murcia APRN Diagnosis: Last Documented On 4 8:59AM By Jim Gann ; [facility], [facility] Furosemide 20 MG Oral Tablet 06/30/2024 Provider: Pia Murcia APRN Diagnosis: Last Documented On 4 8:59AM By Jim Gann ; [facility], [facility] Potassium Chloride ER 20 MEQ Oral Tablet Extended Release 06/30/2024 Provider: Pia Murcia APRN Diagnosis: Last Documented On 4 8:59AM By Jim Gann ; [facility], [facility] Potassium Chloride ER 20 MEQ Oral Tablet Extended Release 06/30/2024 Provider: Pia Murcia APRN Diagnosis: Last Documented On 4 8:59AM By Jim Gann ; [facility], [facility] Diclofenac Potassium 50 MG Tablet 08/20/2016 Provide r: Diagnosis: Last Documented On 6 3:20PM By Meek Akins ; [facility], [facility] RaNITidine HCl 150 MG Capsule 08/20/2016 Provider: Diagnosis: Last Documented On 6 3:20PM By Meek Akins ; [facility], [facility] Amlodipine-Atorvastatin 10-10 MG Tablet 08/20/2016 P rovider: Diagnosis: Last Documented On 6 3:20PM By Meek Akins ; [facility], [facility] Medications Administered Includes: Administered Medications from this encounter No Administered Medications Recorded Results Includes: Results discussed during this encounter No Results Recorded For Specified Dates History of Present Illness Includes: History of Present Illness from this encounter No History of Present Illness Recorded Social History No Social History Recorded - Smoking Status Unknown Medical History Includes: Medical History addressed during this encounter No Medical History Recorded Family History Includes: Family History addressed during this encounter No Family History Recorded Review of Systems Includes: Review of Systems from this encounter No Review of Systems Recorded Mental Status Includes: Mental Status from this encounter No Mental Status Recorded Functional Status Includes: Functional Status from this encounter No Functional Status Recorded Physical Exam Includes: Physical Exam from this encounter No Physical Exam Recorded Allergies Includes: Active Allergies No Known Allergies Encounters Encounter Provider Location Date Check-In Time Check-Out Time Diagnosis Epidural Steroid Injection Lio Wu MD [facility] KLAUS 09/10/20 16 12:51PM 1:14PM Insurance Includes: Active Insurance Policies Plan Name Member ID Group # Subscriber Relationship Effect césar Dates - [facility] [id number] Marguerite Martinez Self Clinical Notes Includes: Clinical Notes from this encounter No Clinical Notes Recorded
--- OUTSIDE RECORDS SUMMARY | 2024-08-04 08:36 | XMS_ITS | Clinical Summary ---
Author Organization [facility] , [facility] Address [address] [place] [address] Phone Care Team Providers Care Electrician Research Name Role Phone Bryce MERINO, Lio Holcomb Unavailable [phone] Reason for Visit and Chief Complaint Epidural Steroid Injection Problems Includes: Problems addressed during this encounter and other active Problems All Visits Onset Date Resolved Date Provider Condition S tatus Lower Back Pain 08/03/2024 Lio Wu MD Act césar Last Documented On 4 8:57AM ; [facility] Plan of Treatment Future Appointments Date Time Location Provi ck Epidural Steroid Injection 08/16/2024 10[facility] CRNA Last Documented On 4 11:58AM ; [facility] Follow Up 09/28/2024 8:00AM [facility] EVIN Wu MD Last Documented On 4 11:59AM ; [facility] Assessments Includes: Assessments from this encounter No Assessments Recorded Medical Equipment - Implanted Devices Includes: Current Devices No Medical Equipment Recorded Medications Includes: Medications discussed during this encounter and other current Medications Current Medications (continue as prescribed) traMADol HCl 50 MG Oral Tablet 08/01/2024 Provider: Pia Murcia APRN Diagnosis: Last Documented On 4 8:59AM By Jim Gann ; [facility], [facility] Methocarbamol 750 MG Oral Tablet 07/31/2024 Provider : Pia Murcia APRN Diagnosis: Last Documented On 4 8:59AM By Jim Gann ; [facility], [facility] Furosemide 20 MG Oral Tablet 06/30/2024 Provider: Pia Murcia APRN Diagnosis: Last Documented On 4 8:59AM By Jim Gann ; [facility], [facility] Potassium Chloride ER 20 MEQ Oral Tablet Extended Release 06/30/2024 Provider: Pia Murcia APRN Diagnosis: Last Documented On 4 8:59AM By Jim Gann ; [facility], [facility] Potassium Chloride ER 20 MEQ Oral Tablet Extended Release 06/30/2024 Provider: Pia Murcia APRN Diagnosis: Last Documented On 4 8:59AM By Jim Gann ; [facility], [facility] Diclofenac Potassium 50 MG Tablet 08/20/2016 Provide r: Diagnosis: Last Documented On 6 3:20PM By Meek Akins ; [facility], [facility] RaNITidine HCl 150 MG Capsule 08/20/2016 Provider: Diagnosis: Last Documented On 6 3:20PM By Meek Akins ; [facility], [facility] Amlodipine-Atorvastatin 10-10 MG Tablet 08/20/2016 P rovider: Diagnosis: Last Documented On 6 3:20PM By Meek Akins ; [facility], [facility] Medications Administered Includes: Administered Medications from [...] Diagnosis Epidural Steroid Injection Lio Wu MD [facility] K[facility]US 08/28/20 16 3:48PM 5:13PM Insurance Includes: Active Insurance Policies Plan Name Member ID Group # Subscriber Relationship Effect césar Dates - [facility] [id number] Marguerite Martinez Self Clinical Notes Includes: Clinical Notes from this encounter No Clinical Notes Recorded
--- OUTSIDE RECORDS SUMMARY | 2024-08-04 08:36 | XMS_ITS | Encounter Summary ---
Author Organization [place] [address] Care Team Providers Care Home Care Giver Name Role Phone Unavailable Primary Care Provider Unavailabl e Reason for Referral * Ultrasound (Routine) - Closed Specialty Diagnoses / Procedures Referred By Contac t Referred To Contact Radiology Diagnoses PMB (postmenopausal bleeding) Procedures US PELVIS AND TRANSVAGINAL NON OB COMPLETE Chika Johnson MD [address] [place] [address] Phone: tel: fax: Referral ID Status Reason Start Date Expiration Date Visits Re quested Visits Authorized [id number] Closed 05/19/2023 05/18/2024 1 1 Reason for Visit * Reason Comments New Patient * Consultation (Routine) - Closed Specialty Diagnoses / Procedures Referred By Contact Referred To Contact Obstetrics & Gynecology - Female Pelvic Medicine And Reconstructive Surgery / Gynecology Diagnoses Female genital prolapse, unspecified range aide/ prolpase Procedures NEW PATIENT [facility] [address] [address] Phone: tel: fax: Chika Johnson MD [address] [place] [phone] Phone: tel: fax: Referral ID Status Reason Start Date Expiration Date Visits Re quested Visits Authorized [id number] Closed 05/19/2023 05/18/2024 99 99 Encounter Details Date Type Department Care Team (Late st Contact Info) Description 05/19/2023 9:30 AM EDT Office Visit [facility] [address] [phone] Chika Johnson MD [address] [place] [id number] Complete uterovaginal prolapse (Primary Dx); PMB (postmenopausal bleeding); Urinary frequency; Vulvar lesion Social History Tobacco Use Types Packs/Day Years Used Date Smoking Tobacco: Never Smokeless Tobacco: Never Tobacco Cessation:Counseling Given: Not Answered Comments No Sex and Gender Information Value Date Recorded Sex Assigned at Not on file Legal Sex Female 1:47 PM EDT Gender Identity Not on file Sexual Orientation Not on file documented as of this encounter Last Filed Vital Signs Vital Sign Reading Time Taken Comments Blood Pressure 136/78 05/19/2023 9:24 AM EDT Pulse 79 05/19/2023 9:24 AM EDT Temperature - - Respiratory Rate - - Oxygen Saturation 99% 05/19/2023 9:24 AM EDT Inhaled Oxygen Concentration - - Weight 66.6 kg (146 lb 12.8 oz) 05/19/2023 9:24 AM EDT Height - - Body Mass Index - - documented in this encounter Progress Notes * Chika Johnson MD - 05/19/2023 9:30 AM EDT Images from the original note were not included. New Patient Marguerite Martinez 1960 Assessment: Marguerite Martinez is a very pleasant 63 y.o. woman who presents today with: Stage III Pelvic Organ Prolapse (tri-compartmental) Post-menopausal bleeding Vulvar lesion Constipation I reviewed with her my exam findings and discussed the options for management as follows: Stage III POP I discussed my evaluation findings and reviewed treatment options for pelvic organ prolapse, including expectant management, pelvic floor muscle strengthening exercises with or without pelvic floor physical therapy, pessaries and surgery (both vaginal [place] tissue approaches as well as abdominal approach with mesh-based repair). She is most interested in surgery. I discussed both vaginal [place] tissue repairs and [facility] I explained that the mesh-based approach has success rates of about 85-90% in the first year,with long-term success of about 70%. I explained that [place] tissue repairs have success rates of about 80% in the first year, with 50-60% long-term success. I explained that the higher success rate with the abdominal/laparoscopic approach is attributable to the use of a permanent mesh, with additional risks including erosion, bleeding, pain, infection, and potential need for revision or removal with another surgery. I also reviewed vaginal obliterative procedures, with success rates closer to 95%, but explained that this type of procedure precludes any future ability to have penetrative vaginal intercourse. We discussed each treatment approach in detail. After our discussion and reviewing patient's concerns and preferences, I recommend: Colpocleisis (pending biopsy results), possible hysterectomy (pending TVUS and PMB symptoms), posterior repair with levator plication, +/-MUS pending UDE, cystoscopy PMB - TVUS to evaluate endometrial stripe - If persistent, patient will need hysterectomy at time of prolapse repairs Vulvar lesion Ddx includes lichen sclerosus vs NINFA vs carcinoma - See biopsy note below Constipation Potential etiologies of constipation include diet-induced/slow-transit, outlet obstruction and defecatory dysfunction. I explained the mechanism of action of fiber supplementation and recommended slowly increasing fiber supplements (preferably psyllium powder) in order to soften her stool without causing excessive bloating/discomfort. I also explained that stool softeners (such as docusate sodium) and mild laxatives (such as polyethylene glycol) are safe to use on a daily basis as they work by increasing water content in stool. - Patient handout provided detailing above recommendations RTO for UDE followed by consent Portions of this note were dictated and therefore may contain title i coordinator errors. Time spent for today's services not including vulvar biopsy procedure (including pre-visit chart and record review, patient visit, after-visit documentation and coordination of care) totaled 65 minutes, as described in my note above. Chika Johnson MD, FACOG, [facility] Division of Urogynecology Female Pelvic Medicine and Reconstructive Surgeon [address] [place] [address] [email or web address] 05/19/23 12:24 PM HPI: Patient's Chief complaint in her own words: I have a prolapse Patient is a 63 y.o. old female who is referred by self for evaluation of prolapse as a consultation with Dr. Johnson today. Patient presents for evaluation of prolapse. She has noticed this for the last year and it is getting worse. She denies urinary incontinence. She does note intermittent spotting in the last few weekswhich happens a couple times a week when she wipes. She does note frequency of urination and has tosplint in order to empty her bladder. She reports chronic constipation which is well controlled on daily MiraLAX. Most recent A1c: No results found for: HGBA1C Bladder control problems: Do you leak urine with cough, sneeze, laugh or exercise? no If you have the urge to pee, do you leak trying to get to the bathroom? no Do you have difficulty emptying bladder? no Prior treatments for leakage of urine: none Prolapse/vaginal support problems: Do you have the feeling of a vaginal bulge or pressure/heaviness in the vagina? yes Vaginal bleeding? yes sometimes when I wipe I have bleeding, 2-3x weekly Bowel Problem(s): Do you have constipation? yes Do you have to push on the vagina to complete a bowel movement? no Do you leak stool? no Colonoscopy up to date? yes Sexual History: Are you sexually active? no Do you have pain with sex? N/A ELECTROCHEMIST History: Number of vaginal deliveries: 2 Of these, number delivered by forceps or vacuum: 0 Number of C-sections: 0 Have you ever had an abnormal Pap-smear? no Urology History: Both kidneys present: yes Both functioning: yes History of kidney stones: no Gynecology-specific Surgical History: Hysterectomy: no Oophorectomy: no Salpingectomy (Fallopian tubes removed): no Prolapse surgery: no Vaginal surgery: yes tubal ligation Mesh placed: no Pertinent Medical/Family History: Personal or Family history of breast cancer? no If yes, who: Personal or Family history of ovarian cancer? no If yes, who: Personal or Family history of blood clotting disorder? no If yes, who: Personal or family history of kidney/bladder cancer? no If yes, who: ROS Constitutional: denies fevers Vision: denies vision changes HENT: denies sore throat Pulm: denies shortness of breath Cardio: denies chest pain GI: denies nausea/vomiting : denies burning with urination Skin: denies rash Musculoskeletal: reports joint pain Neuro: denies problems with balance or memory Past Medical History: has no past medical history on file. Past Surgical History: has no past surgical history on file. Allergies: has No Known Allergies. Current Medications:has a current medication list which includes the following prescription(s): estradiol. Social History: reports that she has never smoked. She has never used smokeless tobacco. Family History: family history is not on file. Objective: Vitals: 05/19/23 0924 BP: 136/78 Pulse: 79 SpO2: 99% Weight: 146 lb 12.8 oz (66.6 kg) Physical Exam Constitutional: well-groomed, no distress Psych: appropriate affect. Eyes: sclera normal and non-icteric Cardiovascular: No peripheral edema Respiratory: Normal work of breathing Gastrointestinal: soft, non-tender, non-distended Extremities/Hematologic: Non-tender, no erythema or swelling Focused Neurologic Exam: Lumbo-Sacral: Sensory: normal Motor: normal Bulbocavernous reflex/Anal wink: Not Present Perineal sensation: normal A pelvic exam was conducted with the patient's consent. A Septic Cleaner was present for the entire pelvic exam. Septic Cleaner: LILI Cerda Pelvic Exam: External genitalia: normal external female genitalia architecture, scattered pin point varicositiesalong bilateral labia majora. 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, with adjacent smaller areas of leukoplakia on the left Introitus: atrophic Urethra: normal Urethral hypermobility: Yes BULK RECEIVER negative Vagina: Atrophic vaginal mucosa, large distention cystocele with cervix prolapse 4 cm beyond hymen Bladder: within normal limits Uterus: Uterus midline, mobile, normal size Cervix: normal in appearance Adnexae/Ovaries: Not palpable Pain absent on palpation of bilateral levator ani and absent on palpation of bilateral obturator internus muscles POPQ Aa = +3 Ba = +4 C = +4 Gh = 5 Pb = 3 Tvl = 9 Ap = 0 Bp = +2 D = +4 (Prolapse Stage III) Strength 0/5 Office Fill Study I performed straight catheterization using usual sterile technique to test PVR and UA. See clinic note for results. Catheter PVR = 145 mL Results for orders placed or performed in visit on 05/19/23 [facility] URINALYSIS POC Result Value Ref Range UA Color POC Yellow Color UA Appear POC Clear Clear UA Gluc POC Negative Negative mg/dL UA Bili POC Negative Negative UA Ketones POC Negative Negative mg/dL UA SG POC 1.010 1.001 - 1.035 no units UA Blood POC Negative Negative UA pH POC 6.5 5.0 - 8.0 pH UA Protein POC Negative Negative mg/dL UA Urobilinogen POC 0.2 0.2, 1.0 UA Nitrite POC Negative Negative UA Leuk Est POC Negative Negative VULVAR BIOPSY PROCEDURE Office vulvar punch biopsy SURGEON Chika Johnson MD PREOPERATIVE DIAGNOSIS Vulvar lesion POSTOPERATIVE DIAGNOSIS Same ANESTHESIA Local 1% lidocaine buffered with sodium bicarbonate COMPLICATIONS None ESTIMATED BLOOD LOSS <1 cc SPECIMENS Two vulvar biopsies DESCRIPTION OF PROCEDURE With the patient in the dorsal lithotomy position, the abnormal area was prepped with betadine and local 1% lidocaine buffered with sodium bicarbonate was injected under the skin. Two 4 mm punch biopsies were taken from the above described lesion and sent to pathology per routine. Area was noted to be hemostatic after application of silver nitrate. Patient tolerated procedure well. There were no complications. Labs/Imaging: No results found for: NA, K, CL, CO2, ANIONGAP, CALCIUM, GLU, BUN, CREATININE, ALBUMIN, PROT, LABBILI, AST, ALT, ALKPHOS, GFRAFRAM, GFRNONAFRAM No results found for this or any previous visit. No results found for this or any previous visit. No results found for this or any previous visit. No results found for this or any previous visit. No results found for this or any previous visit. * Chika Johnson MD - 05/19/2023 9:30 AM EDT Please call patient to notify her that the vulvar biopsies were benign (normal). They showed that the epithelium of the skin was thickened, but no other concerning findings or work up needed for this. Thank you! Nimo documented in this encounter Miscellaneous Notes * Patient Instructions - Chika Johnson MD - 05/19/2023 9:30 AM EDT Images from the original note were not included. documented in this encounter Plan of Treatment Scheduled Orders Name Type Priority Associated Diagnoses Orde r Schedule US PELVIS AND TRANSVAGINAL NON OB COMPLETE Imaging Routine PMB (postmenopausal bleeding) 1 Occurrences starting 05/19/2023 until 05/18/2024 documented as of this encounter Procedures Procedure Name Priority Date/Time Associated Diagnosis Comments PATHOLOGY TISSUE REQUEST Routine 05/19/2023 10:26 AM EDT Vulvar lesion [facility] URINALYSIS POC Routine 05/19/2023 10 :03 AM EDT Urinary frequency documented in this encounter Results * PATHOLOGY TISSUE REQUEST (05/19/2023 10:26 AM EDT) CASE REPORT Surgical Pathology ?Case: [id number] ? Authorizing Provider: ??Chika Johnson MD Collected: ? 05/19/2023 1026 ? Ordering Location: ? [facility] [place] Received: ?05/19/2023 1026 ? Pathologist: ? Rachel Vale MD ? Specimens: ?? A) - Vulva, left labia 1 ? B) - Vulva, left labia 2 ? 05/21/2023 7:32 PM EDT [facility] FINAL DIAGNOSIS A. VULVA, LEFT LABIA 1, BIOPSY: - Superficial squamous epithelium with hyperkeratosis. - No evidence of dysplasia or malignancy. - See comment. B. VULVA, LEFT LABIA 2, BIOPSY: - Superficial squamous epithelium with hyperkeratosis. - No evidence of dysplasia or malignancy. - See comment. 05/21/2023 7:32 PM EDT [facility] ENT Both biopsies are superficial with minimal subepithelial tissue present, which limits the interpretation. The small amount of subepithelial tissue present does show hyalinization. While the biopsy can rule out dysplasia, it is suboptimal for evaluation for lichen sclerosus or other dermatologic condition. Parts A and B: Multiple levels examined. This case has been reviewed by additional departmental pathologist(s) with diagnostic agreement./EK 05/21/2023 7:32 PM EDT [facility] GROSS DESCRIPTION A. Part A is received in formalin, labeled with the patient's name, medical record number, and vulva . It consists of a 0.5 x 0.2 by less than 0.1 cm ordoñez-white skin fragment. The resection margin is inked blue and the specimen is entirely submitted in cassette A1. PARAG Fairchild PA ([facility]) 05/20/2023 8:47 AM B. Part B is received in formalin, labeled with the patient's name, medical record number, and vulva . It consists of a 0.5 x 0.4 cm skin shave specimen. The white skin surface displays a 0.2 x 0.1 cm white papule. The resection margin is inked blue and the specimen is entirely submitted in cassette B1. PARAG Fairchild PA ([facility]) 05/20/2023 8:47 AM 05/21/2023 7:32 PM EDT [facility] MICROSCOPIC DESCRIPTION Microscopic examination is performed and the findings corroborate the diagnosis. 05/21/2023 7:32 PM EDT [facility] EMBEDDED IMAGES 05/21/2023 7:32 PM EDT [facility] Tissue SPECIMEN FROM VULVA / Unknown 05/19/2023 10:26 AM EDT 05/19/2023 10:26 AM EDT Tissue specimen (specimen) SPECIMEN FROM VULVA / Unknown 05/19/2023 10:26 AM EDT 05/19/2023 10:26 AM EDT Chika Johnson MD PATHOLOGY ORDERABLES [place] [address] * [facility] URINALYSIS POC (05/19/2023 10:03 AM EDT) UA Color POC Yellow Color 05/19/2023 10:09 AM EDT [facility] Appear POC Clear Clear 05/19/2023 10:09 AM EDT [facility] Gluc POC Negative Negative mg/dL 05/19/2023 10:09 AM EDT [facility] UA Bili POC Negative Negative 05/19/2023 10:09 AM EDT [facility] Ketones POC Negative Negative mg/dL 05/19/2023 10:09 AM EDT [facility] SG POC 1.010 1.001 - 1.035 no units 05/19/2023 10:09 AM EDT [facility]A Blood POC Negative Negative 05/19/2023 10:09 AM EDT [facility] pH POC 6.5 5.0 - 8.0 pH 05/19/2023 10:09 AM EDT [facility] Protein POC Negative Negative mg/dL 05/19/2023 10:09 AM EDT [facility] Urobilinogen POC 0.2 0.2, 1.0 05/19/2023 10:09 AM EDT [facility] UA Nitrite POC Negative Negative 05/19/2023 10:09 AM EDT [facility] UA Leuk Est POC Negative Negative 10:09 AM EDT [facility] Urine URINE SPECIMEN COLLECTION / Unknown 05/19/2023 10:03 AM EDT 05/19/2023 10:09 AM EDT us Chika Johnson MD POINT OF CARE TEST ANGELA LANGFORD Final Result [facility] [place] [address] documented in this encounter Visit Diagnoses Diagnosis Complete uterovaginal prolapse- Primary Uterovaginal prolapse, complete PMB (postmenopausal bleeding) Postmenopausal bleeding Urinary frequency Vulvar lesion Other specified noninflammatory disorder of vulva and perineum documented in this encounter Administered Medications Inactive Administered Medications - up to 1 most recent administrations Medication Order MAR Action Action Date Dose Rate Site BUPivacaine HCl (MARCAINE) 0.5 % (5 mg/mL) injection 50 mg 50 mg (10 mL), Intramuscular, ONCE, 1 dose, On Wed05/19/23 at 1115, Dx: 1. Vulvar lesionIndications:Vulvar lesion Given 05/19/2023 11:01 AM EDT 50 mg Other documented in this encounter Historical Medications * This list may reflect changes made after this encounter. estradioL (ESTRACE) 0.01 % (0.1 mg/gram) Vagl Cream Place vaginally two times a week. 04/16/2023 added in this encounter Orders Lab Orders Without Results Count Last Ordered D ate First Ordered Date PATHOLOGY TISSUE REQUEST 1 05/19/2023 documented in this encounter
--- OUTSIDE RECORDS SUMMARY | 2024-08-04 08:36 | XMS_ITS | Encounter Summary ---
Author Organization [facility] [place] [address] Care Team Providers Care Box Tender Name Role Phone Unavailable Primary Care Provider Unavailabl e Encounter Details Date Type Department Care Team (Latest Contact Info) Description 09/22/2023 Travel Social History Tobacco Use Types Packs/Day [...] AM EST documented as of this encounter Plan of Treatment Not on file documented as of this encounter Visit Diagnoses Not on filedocumented in this encounter
--- OUTSIDE RECORDS SUMMARY | 2024-08-04 08:36 | XMS_ITS | Encounter Summary ---
Author Organization [place] [address] Care Team Providers Care Retail Special Event Associate Name Role Phone Unavailable Primary Care Provider Unavailabl e Reason for Visit * In Office Procedure (Routine) - Closed Specialty Diagnoses / Procedures Referred By Deon rizo Referred To Contact Physician Truck Switcher / Gynecology Diagnoses Frequency of micturition ude Procedures OK COMPLEX CYSTOMETROGRAM W/VOID PRESS&URETHRAL PROFILE OK ELECTRO-UROFLOWMETRY, FIRST OK ANAL/URINARY MUSCLE STUDY OK VOIDING PRESS STUDY INTRA-ABDOMINAL VOID URODYNAMICS Chika Johnson MD [address] [place] [address] Phone: tel: fax: Penny Ferguson PA-C [address] [place] [address] Phone: tel: fax: Referral ID Status Reason Start Date Expiration Date Visits Re quested Visits Authorized [id number] Closed 06/23/2023 06/22/2024 1 1 Encounter Details Date Type Department Care Team (Latest Contact Info) Description 06/23/2023 3:00 PM EDT Procedure visit [facility] Urogynecology [address] [id number] Penny Ferguson PA-C [address] [place] [address] Urinary frequency (Primary Dx); Complete uterovaginal prolapse Social History Tobacco Use Types Packs/Day Years Used Date Smoking Tobacco: Never Smokeless Tobacco: Never Comments No Sex and Gender Information Value Date Recorded Sex Assigned at Not on file Legal Sex Female 1:47 PM EDT Gender Identity Not on file Sexual Orientation Not on file documented as of this encounter Progress Notes * Penny Farmer PA - 06/23/2023 3:00 PM EDT Images from the original note were not included. Yeni Farmer PA-C Urodynamic Procedure Note Marguerite Martinez 1960 Urodynamicist: Yeni Farmer PA-C Equipment: [email or web address] Brief History/Indication: Patient is a 63 y.o. female with a diagnosis of urinary frequency and Stage 3 POP, who presents fora urodynamic evaluation. Patient is planning for elective surgical management of POP with Dr. Johnson. Procedure: The patient was taken to the Urodynamics suite and a free urine flow was obtained, followed by catheterization for residual urine. A speculum and scopette were used to reduce patient's prolapse then a double-lumen urodynamic catheter was introduced to the bladder for measuring bladder pressure and f illing. A vaginal catheter was inserted to record the abdominal pressure. EMG patch electrodes wereplaced familia-anally for recording activity of the anal sphincter. The entire process was displayed and analyzed using the [email or web address] Urodynamic machine and software. FINDINGS Uroflow: Findings Normal Values Urine Dip Negative for nitrites Normal Voided Volume 68 ml PVR 140 ml < 150 ml Average Flow Rate 2 ml/sec Max Flow Rate 0 ml/sec 15 ml/sec Comments None Cystometrogram: Findings Goal Numbers First Sensation of Filling 13 ml First Desire 90 ml Strong Desire 107 ml Capacity 200 ml 250 ml Comments Patient felt initial capacity at around 126 ml; she was able to fill to final capacity of 200 ml Leak Point Pressures: Subjective DAVID? No Cough Valsalva Normal Values Capacity: 200 ml No leak Leak @ 54 cm/H2O ALPP > 60 cm H2O Reduction of prolapse Yes Comments +DAVID Pressure Voiding Study: Findings Goal Numbers Pdet at Max Flow 7 cm H2O Max Pdet during Flow 70 cm H2O 12-20 cm H2O Max Vesical Pressure at Peak Flow 53 cm H2O Max Abdominal Pressure at Peak Flow 46 cm H2O Peak Flow Rate 12 ml/sec > 15 ml/sec Flow Time 34 sec Voided Volume 75 ml Entire volume filled Calculated Residual (max cap-voided) 117 ml < 150 ml Comments None MUCP: MUCP Normal Pull 1 95 > 20 Pull 2 91 > 20 EMG: Findings Activity Present Yes Correlates Yes Assessment: Non-Invasive Flow Study Flow rates reduced Flow pattern Continuous - smooth and intermittent Emptying incomplete Filling Study Sensation increased Capacity reduced Compliance normal DO absent DAVID present If present, ALPP: 54 cm H20, diagnostic for ISD Pressure-Flow Study Emptying complete Voiding mechanism: Volitional detrusor contraction Flow rates: reduced Flow pattern: Fluctuating Voiding pressures: increased Sphincter Relaxed during void MUCP: 91 cm H20, not consistent with ISD Impression & Plan: DAVID present at ALPP diagnostic for ISD. Recommend RP sling at time of prolapse repair. RTO to discuss management options. Chika Johnson MD [facility] Female Pelvic Medicine and Reconstructive Surgery [address] [place] [address] extension [phone] [email or web address] Plan: Questions regarding POC answered to the best of my ability. Patient aware to expect urethral irritation. Call office for any unresolved or worsening symptoms. Will return to discuss management options; consent visit scheduled with Dr. Johnson on 07/07. [place] [address] 06/23/23 3:57 PM Cosigned by Chika Johnson MD at 06/23/2023 6:30 PM EDT documented in this encounter Plan of Treatment Not on file documented as of this encounter Procedures Procedure Name Priority Date/Time Associated Diagnosis Comments [facility]P URINALYSIS POC Routine 06/23/2023 2: 16 PM EDT Urinary frequency documented in this encounter Results * [facility] URINALYSIS POC (06/23/2023 2:16 PM EDT) UA Color POC Yellow Color 06/23/2023 2:18 PM EDT [facility] Appear POC Clear Clear 06/23/2023 2:18 PM EDT [facility] Gluc POC Negative Negative mg/dL 06/23/2023 2:18 PM EDT [facility] Bili POC Negative Negative 06/23/2023 2:18 PM EDT [facility] Ketones POC Negative Negative mg/dL 06/23/2023 2:18 PM EDT [facility] SG POC 1.010 1.001 - 1.035 no units 06/23/2023 2:18 PM EDT [facility] Blood POC Negative Negative 06/23/2023 2:18 PM EDT [facility] pH POC 6.0 5.0 - 8.0 pH 06/23/2023 2:18 PM EDT [facility] Protein POC Negative Negative mg/dL 06/23/2023 2:18 PM EDT [facility] Urobilinogen POC 0.2 0.2, 1.0 06/23/2023 2:18 PM EDT [facility] Nitrite POC Negative Negative 06/23/2023 2:18 PM EDT [facility] Leuk Est POC Negative Negative 2:18 PM EDT [facility] Urine URINE SPECIMEN COLLECTION / Unknown 06/23/2023 2:16 PM EDT 06/23/2023 2:18 PM EDT us Penny Ferguson PA-C POINT OF CARE TEST OR DERABLES Final Result [facility] UROGYNECOLOG[address] [place] [address] documented in this encounter Visit Diagnoses Diagnosis Urinary frequency- Primary Complete uterovaginal prolapse Uterovaginal prolapse, complete documented in this encounter
--- OUTSIDE RECORDS SUMMARY | 2024-08-04 08:36 | XMS_ITS ---
Care Plan - [facility] Created on: August 04, 2024 Marguerite Martinez : 1960 Sex: Female Author Organization [facility] Address [address] [place] [address] Phone Care Team Providers Care Copying Machine Mechanic Name Role Phone Lio Wu MD Unavailable [phone]
--- OUTSIDE RECORDS SUMMARY | 2024-08-04 08:36 | XMS_ITS | Encounter Summary ---
Author Organization [place] [address] Care Team Providers Care Tile Roofer Name Role Phone Jean Davila MD Primary Care Provider [phone] Reason for Visit * Reason Onset Date Comments Pre-op Call 10/04/2023 Encounter Details Date Type Department Care Team (Late st Contact Info) Description 10/04/2023 Telephone [facility] Urogynecology [address] [phone] Glenis Layne LPN Pre-op Call Social History Tobacco Use Types Packs/Day [...] Telephone Encounter - Glenis Layne LPN - 10/04/2023 8:45 AM ESTSummary: Pre-Op Call Images from the original note were not included. Urogyn Pre-op Phone Call 1. Marguerite Martinez, 1960 2. Procedure: Total Vaginal Hysterectomy, Bilateral Salpingectomy, Possible Right, left or Bilateral Oophorectomy, Uterosacral Ligament Suspension, Anterior Repair, Possible Posterior Repair, Placement of Retropubic Midurethral Mesh Sling, Cystoscopy , Surgery Date/Time: 10/11/23 @ 0730 3. H&P by PCP: Patient is cleared for surgery, H&P completed date: 10/04/23 by Jean Davila MD Lab Results: CBC: Lab Results Component Value Date WBC 6.6 09/22/2023 HGB 13.4 09/22/2023 HCT 40.7 09/22/2023 MCV 94.4 09/22/2023 PLT 311 09/22/2023 Imaging Results: Any past issues with anesthesia including malignant hyperthermia or latex allergy? NO Pre-op Call: 1. NPO by midnight before surgery 2. No blood thinners x1 week 3. Arrive 2 hours prior to surgery 4. Please read the provided surgical folder with all the pre-op and post-op instructions. 5. ERAS instructions given 6. Begin Miralax Glenis Layne LPN documented in this encounter Plan of Treatment Not on file documented as of this encounter Visit Diagnoses Not on filedocumented in this encounter Care Teams Tile Roofer Relationship Specialty Start Date End Date Jean Davila MD [address] [place] [address] PCP - General Family Medicine 10/04/23 documented as of this encounter
--- OUTSIDE RECORDS SUMMARY | 2024-08-04 08:36 | XMS_ITS | Data Portability ---
Author Organization [facility] YAMILETH Mcguire AUBURN CLOSED Address [address] [place] [address] Care Team Providers Care Assistant Accounting Manager Name Role Phone ROXIE GUTIERREZ Primary Care Provider Assessment No assessment recorded. Plan of Treatment Reminders Order Date Submit Date Provider Last Modified By Organization Details Last Modified Time Details Appointments None recorded. Lab None recorded. Referral None recorded. Procedures None recorded. Surgeries None recorded. Imaging None recorded. Medication Orders triamcino lone acetonide 0.1 % dental paste 2023 024 [facility], [address], [address], 11:15:50 Patient TargetsNo targets recorded. Patient Instructions Encounter Date Encounter Id Patient Instructions Last Modified By Organization Details Last Modified Time 06/08/2024 [id number] 1. Rx - Start triamcinolone acetonide 0.1 % dental paste ; Apply moderate application to tongue morning and night as long as symptoms last 2. Follow up prn. [email or web address] Not available 06/08/2024 11:12:29 Reason for Referral None Reported. Procedures Surgical History Date Name Laterality Status Provider Name and Address Organization Details Recorded Time hysterectomy completed [facility] 06/07/2024 11:26:33 Imaging Results None recorded. Procedure Notes None recorded. Medical Equipment None Reported. Allergies No known drug allergies Medications Name Sig Start Date Stop Date Status Note LastModified by Organization Details LastModified Time Compound Magic Mouthwash ([facility]) (Tetracyclin e 6 gm Hydrocortiso ne 320 mg Nystatin Suspension 100K units/mL-120 mL Diphenhydram ine Solution 12.5 mg/5 mL-480 mL QS with distilled water to 960 mL) Swish x 30 seconds and spit 3 times daily x 3 weeks 2023 active Not Available Not Available Not Avai lable nystatin 100,000 unit/mL oral suspension SWISH AND SPIT 5 ML BY MOUTH IN THE MORNING AND NIGHT UNTIL GONE active Not Available Not Available N ot Available azithromycin 250 mg tablet TAKE 2 TABLETS BY MOUTH ON DAY 1, AND THEN TAKE 1 TABLET BY MOUTH ONCE A DAY ON DAY 2 THROUGH DAY 5 active Not Available Not Available No t Available fluconazole 150 mg tablet TAKE 1 TABLET BY MOUTH ONCE DAILY FOR 10 DAYS active Not Available Not Available No t Available promethazine 12.5 mg tablet TAKE 1 TABLET BY MOUTH EVERY 8 HOURS FOR 10 DAYS active Not Available Not Available No t Available prednisone 20 mg tablet TAKE 2 TABLETS BY MOUTH ONCE DAILY FOR 7 DAYS active Not Available Not Available No t Available tramadol 50 mg tablet TAKE 1 TABLET BY MOUTH NEEDED EVERY 6 HOURS FOR 10 DAYS active Not Available Not Available No t Available ketorolac 10 mg tablet TAKE 1 TABLET BY MOUTH EVERY 6 HOURS WITH FOOD OR MILK NEEDED FOR 5 DAYS active Not Available Not Available No t Available methocarbamo l 750 mg tablet TAKE 1 TABLET BY MOUTH EVERY 4 HOURS FOR 7 DAYS active Not Available Not Available No t Available triamcinolon e acetonide 0.1 % dental paste Apply moderate application to tongue morning and night as long as symptoms last 2023 active Not Available Not Available Not Avai lable hydrocodone 7.5 mg-acetamino phen 325 mg tablet TAKE 1 TABLET BY MOUTH EVERY 6 HOURS NEEDED FOR 3 DAYS active Not Available Not Available No t Available betamethason e dipropionate 0.05 % topical cream APPLY CREAM TOPICALLY TWICE DAILY FOR 10 DAYS active Not Available Not Available Not Available docusate sodium 100 mg capsule TAKE 1 CAPSULE BY MOUTH TWICE DAILY active Not Available Not Available No t Available ibuprofen 600 mg tablet TAKE 1 TABLET BY MOUTH EVERY 6 HOURS NEEDED FOR PAIN active Not Available Not Available No t Available polyethylene glycol 3350 17 gram/dose oral powder BEGIN MIRALAX, MIX 17 GRAM (1 CAPFUL) IN YOUR FAVORITE DRINK ONCE DAILY BEGINNING 1 WEEK PRIOR TO SURGERY, AFTER SURGERY DRINK THIS TWICE A DAY FOR 2 WEEKS active Not Available Not Available Not Available estradiol 0.01% (0.1 mg/gram) vaginal cream USE 1 GRAM VAGINALLY TWICE WEEKLY FOR 14 DAYS active Not Available Not Available No t Available ondansetron 4 mg disintegrati ng tablet DISSOLVE 1 TABLET IN MOUTH EVERY 6 HOURS NEEDED FOR NAUSEA active Not Available Not Available No t Available amoxicillin 875 mg-potassium clavulanate 125 mg tablet TAKE 1 TABLET BY MOUTH EVERY 12 HOURS FOR 10 DAYS active Not Available Not Available Not Available nitrofuranto in monohydrate/ macrocrystal s 100 mg capsule TAKE 1 CAPSULE BY MOUTH EVERY 12 HOURS FOR 7 DAYS active Not Available Not Available N ot Available tramadol active Not Available Not Avai lable Not Available ibuprofen active Not Available Not Alana ilable Not Available Tylenol active Not Available Not Avail able Not Available Pro Fe 180 mg iron capsule TAKE 1 CAPSULE BY MOUTH THREE TIMES A WEEK active Not Available Not Available No t Available Vitals Date Recorded Body height Body weight Body mass index (BMI) Body temperature Heart rate Oxygen saturation Oxygen saturation in Arterial blood by Pulse oximetry Systolic blood pressure Diastolic blood pressure Provider Name and Address Organization Details Last Updated DateTime 4 160.02 cm 14768.3 g 25.5 kg/m2 97.3 [degF] 78 /min 97 % 97 % 176 mm[Hg] 98 mm[Hg] [facility] 4 10:38:01 Social History None recorded. Functional Status None recorded. Mental Status None recorded. Family History Relationship Description Onset Age of this Age Resolved Age Notes LastModified by Organization Details LastModified Time Brother Malignant neoplasm of brain [email or web address] Not available 2023 11:26:04 Medical History No medical history recorded. Gynecological HistoryNo gynecological history recorded. Obstetrics History GPAL:G 0 P 0 0 0 0 Past Encounters Encounter ID Performer Location Encounter Start Date Encounter Closed Date Diagnosis/Indication Diagnosis SNOMED-CT Code Diagnosis ICD10 Code [id number] MD NATALI ST[facility] [address] [place] [address] 06/08/2024 10:10:02 06/08/2024 11:20:48 Candidiasis of mouth 66800195 B37.0 Glossopyrosis 025519337 K14.6 Health Concerns Section Related Observation LastModified by Organization Detai ls LastModified Time None Recorded Concern Status LastModified by Organization Details LastModified Time None Recorded Advance Directives Directive None Recorded Payers Encounter Date Sequence Insurance Name Policy Number Policy Luis Covered Member ID Luis Member ID Guarantor Name 06/08/2024 1 [employer]: ([place]) Marguerite Martinez [id number] Marguerite Martinez Notes Date Note Type Note Provider Name and Address Organization Details Recorded Time 06/08/2024 text/html Marguerite Martinez (64F) visits our office for an evaluation of sensitive tongue. She reports that she had a hysterectomy performed in September. Following this, she was diagnosed with thrush and treated with oral medication. Ever since this, she has noticed irritation and burning of the tongue, particularly from the mid tongue, down the mid line, down to the tip. CHE GOMES MD [address] [place] [address], [phone], [facility] 06/08/2024 13:07:55 OBGyn Episode No OBEpisode recorded.
--- OUTSIDE RECORDS SUMMARY | 2024-08-04 08:36 | XMS_ITS | Encounter Summary ---
Author Organization [place] [address] Care Team Providers Care Site Worker Name Role Phone Unavailable Primary Care Provider Unavailabl e Reason for Referral * (Routine) - Closed Specialty Diagnoses / Procedures Referred By Contac t Referred To Contact Diagnoses Complete uterovaginal prolapse PMB (postmenopausal bleeding) DAVID (stress urinary incontinence, female) Procedures AMB UROGYN SURGERY COMMUNICATION ORDER Chika Johnson MD [address] [place] [address] Phone: tel: fax: Referral ID Status Reason Start Date Expiration Date Visits Re quested Visits Authorized [id number] Closed 07/07/2023 07/06/2024 1 1 Reason for Visit * Reason Comments Follow-up consent Encounter Details Date Type Department Care Team (Late st Contact Info) Description 07/07/2023 11:30 AM EDT Office Visit [facility] [address] [id number] Chika Johnson MD [address] [place] [id number] Complete uterovaginal prolapse (Primary Dx); PMB (postmenopausal [...] as of this encounter Progress Notes * Chika Johnson MD - 07/07/2023 11:30 AM EDT Images from the original note were not included. Surgery Consent Marguerite Martinez 1960 HPI: Patient is a 63 y.o. year old female here for follow up of prolapse and stress incontinence. She presents for review of her bladder testing and for surgery consent. All prior notes reviewed in detail and patient's questions are answered in full. Patient has a normal PVR. No results found for: CULTURE Patients past medical, family and social histories were reviewed and updated. There were no changesexcept as noted. Physical Exam There were no vitals filed for this visit. Physical Exam General: well-groomed, no distress Psych: Normal affect Lungs: Normal work of breathing Abdomen: non-distended Pelvic Exam previously done on 05/19/23: Aa = +3 Ba = +4 C = +4 Gh = 5 Pb = 3 Tvl = 9 Ap = 0 Bp = +2 D = +4 (Prolapse Stage III) Assessment/Plan: Marguerite Martinez is a 63 y.o. female desiring surgical management of: Stage III Pelvic Organ Prolapse Stress urinary incontinence Pathophysiology of the above condition(s) reviewed along with a discussion of treatment options. Patient would like to proceed with surgery. I discussed both vaginal duckwater tissue repairs and abdominal/laparoscopic surgical approaches usingmesh. I reminded her that surgery for prolapse addresses the symptomatic bulge, but does not address pelvic pain, and may or may not have benefit on bladder symptoms or defecatory symptoms. I explained that the abdominal approach is a more durable procedure with higher success rate of about 85-90% compared to vaginal duckwater tissue procedures (about 70-80% success rate), but success can decline over 5 years, more significantly for duckwater tissue repairs. I explained that the higher success rate with the abdominal/laparoscopic approach is attributable to the use of a permanent mesh, with additional risks including vaginal exposure, bleeding, pain, and more rare risks of erosion into the bladder or bowel, chronic pain or infection, requiring more invasive surgery to the remove the mesh. I also reviewed obliterative procedures, with success rates of about 95%, but this option would close the vagina and preclude penetrative vaginal intercourse in the future. We discussed each treatment approach in detail. After our discussion, the patient indicates that she would like vaginal duckwater tissue repairs. I reviewed the planned surgical approach. We discussed risks and benefits of removal of tubes and/or ovaries at the time of surgery. I explained that usually if normal in appearance, we would recommend leaving ovaries in place due to some cardiovascular benefit that they may still provideuntil the age of 65. I explained that, after the age of 65, the benefit of leaving ovaries for cardiovascular benefit appears to equal the risk of ovarian cancer in the general population, which is about 1/70 women. I discussed the association of fallopian tubes with ovarian cancer, and explained that if these are able to be safely removed during surgery that we would recommend their removal. After our discussion, she decided that she would like her fallopian tubes removed but ovaries left in place if normal in appearance. I explained that success rates in prolapse repair with this approach are estimated to be about 80%,but this may decline several years out after surgery. I reviewed risks associated with prolapse surgery including development of scar tissue and pain, new or worsening of stress urinary incontinence,and urinary retention post-op that may require short-term indwelling Cintron catheter. I reviewed risks of surgery including risk of bleeding with potential need for blood transfusion (patient accepts a blood transfusion in case of an emergency), infection, and injury to surrounding organs. Should injury to another organ occur, I counseled her that in most cases this is recognized atthe time of surgery and repaired at that time, however in the rare case that it is recognized post-operatively, it may require additional surgery. I also reviewed increased post-operative risks including deep vein thrombosis, pulmonary embolism, heart attack, stroke, and . I reviewed her urodynamic testing, which showed DAVID at [facility] consistent with ISD. I again reviewed the risk of new or worsened DAVID following prolapse repair, and I explained that midurethral slings can be placed at the time of prolapse repair to help reduce the risk of DAVID after surgery. I discussedmidurethral slings with her and I explained that in general these are 85% successful in curing or im proving stress incontinence. I reminded her that this is a treatment for DAVID, but does not address OAB/UUI. I also explained that the sling is a permanent mesh implant, that holds up to a 3% risk of mesh exposure in the vagina which could result in bleeding or pain, and might require additional surgery. I also reviewed risks of urinary retention (2-3% require a second procedure to release the sling to allow normal voiding) and new or worsening OAB or urge incontinence symptoms (about 5% have new overactive bladder symptoms and require treatment). I reviewed more rare risks of mesh erosion into bladder or urethra, fistula formation, infection of the mesh, or chronic pain due to the permanentimplant requiring more invasive surgery. Based on our discussion, she would like to proceed with concomitant midurethral sling at the time of prolapse repair, understanding the above risks. Typical familia-operative course and post-op restrictions reviewed. All questions answered. Written informed consent was obtained. Patient informed that she will need to obtain medical risk stratification and recommendations on holding medication(s) from PCP within 30 days prior to surgery. Patient is consented for: Total vaginal hysterectomy, bilateral salpingectomy, possible oophorectomy, uterosacral ligament suspension, anterior & posterior repair, retropubic midurethral sling, cystoscopy Patient may return to work at 6 weeks without restrictions. Time spent for today's services (including pre-visit chart and record review, patient visit, after-visit documentation and coordination of care) totaled 45 minutes, as described in my note above. Chika Johnson MD, FACOG, [facility] Division of Urogynecology Female Pelvic Medicine and Reconstructive Surgeon [address] [place] [address] [email or web address] 07/07/23 12:27 PM documented in this encounter Plan of Treatment Not on file documented as of this encounter Visit Diagnoses Diagnosis Complete uterovaginal prolapse- Primary Uterovaginal prolapse, complete PMB (postmenopausal bleeding) Postmenopausal bleeding DAVID (stress urinary incontinence, female) Female stress incontinence documented in this encounter Orders Nursing Count Last Ordered Date First Orde red Date AMB UROGYN SURGERY COMMUNICATION ORDER 1 documented in this encounter
--- OUTSIDE RECORDS SUMMARY | 2024-08-04 08:36 | XMS_ITS | Encounter Summary ---
Author Organization [place] [address] Care Team Providers Care Raw Stock Dyeing Machine Tender Name Role Phone Unavailable Primary Care Provider Unavailabl e Reason for Visit * Reason Onset Date Comments Results 07/07/2023 results Encounter Details Date Type Department Care Team (Late st Contact Info) Description 07/07/2023 Telephone [facility] [address] [phone] Jim Nieves MA Results (results) Social History Tobacco Use Types Packs/Day Years Used Date Smoking Tobacco: Never Smokeless Tobacco: Never Comments No Sex and Gender Information Value Date Recorded Sex Assigned at Not on file Legal Sex Female 1:47 PM EDT Gender Identity Not on file Sexual Orientation Not on file documented as of this encounter Miscellaneous Notes * Telephone Encounter - Jim Nieves MA - 07/07/2023 11:25 AM EDT Pt informed * Telephone Encounter - Jim Nieves MA - 07/07/2023 11:25 AM EDT ----- Message from FILIBERTO Brown sent at 07/05/2023 10:59 AM EDT ----- Staff - please call patient to let her know that her biopsy result was benign Thank you! Yeni Farmer PA-C documented in this encounter Plan of Treatment Not on file documented as of this encounter Visit Diagnoses Not on filedocumented in this encounter
--- OUTSIDE RECORDS SUMMARY | 2024-08-04 08:36 | XMS_ITS | Encounter Summary ---
Author Organization [place] Address [facility] NAT[place]I Zarate [address] Care Team Providers Care Reference Librarian Name Role Phone Unavailable Primary Care Provider Unavailabl e Encounter Details Date Type Department Care Team (Latest Contact Info) Description 09/22/2023 8:15 AM EST - 09/22/2023 11:59 PM EST Hospital Encounter EDG PRE-ADMIT TESTING [facility] [place]aid [id number] 2, Edg Pat Nurse Preop testing (Primary Dx); PMB (postmenopausal bleeding); Complete uterovaginal prolapse Discharge Disposition: Home or Self Care Anesthesia Record Procedure Summary Procedure Name Responsible [...] acknowledgement of understanding from the receiving PACU/ICU help desk team leader [id number] An Stop Meds * Agents No agents on file. * Blood No blood administrations on file. Lines, Drains, and Airways Type Details Placement Removal Peripheral IV 10/11/23; 0641; 20; Right; Wrist; Deep neal RN; 2; 10/11/23; 1615; Therapy completed; Catheter intact, Dressing applied, No Complications 10/11/23 0641 by Lisebt Neal RN 10/11/23 1615 by Carolina Paris RN Airway Device: ETT- Cuffed; Size: 7 mm; Placement Date: 10/11/23; Placement Time: 07 (created via procedure documentation); Removal Date: 10/11/23; Removal Time: 10410/11/23 0740 by Leigh Ann Hernandes CRNA 10/11/23 1042 by Leigh Ann Hernandes CRNA Urethral Catheter (Cintron) Placement Date: 10/11/23; Placement Time: 08; Inserted By: DR GALLEGO; Type: Double-lumen; Balloon [...] Sign Reading Time Taken Comments Blood Pressure 141/87 09/22/2023 9:12 AM EST Pulse 74 09/22/2023 9:12 AM EST Temperature 36.5 ??C (97.7 ??F) 09/22/2023 9:12 AM ES T Respiratory Rate 16 09/22/2023 9:12 AM EST Oxygen Saturation 99% 09/22/2023 9:12 AM EST Inhaled Oxygen Concentration - - Weight 65.6 kg (144 lb 9.6 oz) 09/22/2023 9:12 A M EST Height 160 cm (5' 3 ) 09/22/2023 9:12 AM EST Body Mass Index 25.61 09/22/2023 9:12 AM EST documented in this encounter Discharge Instructions * Discharge Instructions* Kendy Watts RN - 09/22/2023 9:10 AM EST Images from the original note were not included. PREPARING FOR YOUR SURGERY Date of Surgery 10/11/2023 Medications Take the following pills with a small sip of water on the morning of surgery: none Aspirin, coumadin, blood thinners, ibuprofen, Plavix, fish oil, vitamin E, any supplements, and anyanti-inflammatory products may be stopped as directed by your physician. Food, Drinks, Tobacco For your safety, do not eat any food after midnight. This includes gum, mints, candy, chewing tobacco, and dip. You may consume water, Gatorade, Powerade, black coffee/tea (no milk, no cream/creamers, no sugar) up to two hours prior to your arrival time. No exceptions or substitutions may be made to these restrictions. For tobacco users: do not smoke or use any type of tobacco products within 24 hours prior to surgery. Smoking will also slow your rate of healing, so it is advised that you do not smoke during the healing process. No beer, wine or alcohol 24 hours prior to surgery. Review instructions provided by your surgeon. Adobe Layer On the day of surgery, it is important to have a Adobe Layer, someone who is 18 years or older, toaccompany you and remain in the facility for the duration of your surgery. This person should be available for the Perioperative Team, which includes your surgeon, to communicate with before, during and after your surgery. Someone should also remain with you for [address] you and make sure you are SAFE during that time. A parent must accompany a child scheduled for surgery and remain at the hospital until the child isdischarged. If your takes a special type of nipple or baby bottle, please bring that with you. If your child has a favorite security item such as a blanket or a special toy, please feel free to bring that with you. Please do not bring children with you to the hospital or surgery center. Hygiene You may brush your teeth and gargle the morning of surgery. Do not swallow water. Please shower the morning of surgery or the night before. Do not wear makeup (including eye makeup)lotion, powder or deodorant. Please do not shave the operative extremity or near the operative extremity. Nail taiwanese must be removed from operative extremity. Personal Items Please wear simple, loose fitting clothing and sturdy shoes (no flip flops or slides) to the hospital. Do not bring valuables (money, credit cards, check books, etc.) or wear any jewelry on day of surgery. Remove all body piercings prior to arrival. All jewelry must be removed to avoid injury. We will not tape wedding rings/bands. If you have dentures, they may be removed before going into the operating room, and we will providea container for them. If you wear contact lenses or glasses, they must be removed. Please bring a case for them. If you have hearing aids, wear them to the hospital and they must be removed before going into the operating room. Please bring a case for them. Bring with You If you have a Living Will and Durable Power of Printer'S Assistant for Healthcare, please bring a copy. If having surgery at the hospital and you wear CPAP or BIPAP, please bring your mask, tubing, and the machine settings (not the actual machine) with you to the hospital on the day of your procedure. The hospital will supply a machine to use during your hospital stay. If your procedure is taking place at a surgery center, you must bring your CPAP or BIPAP with you. If you wear oxygen, please bring it with you to use during your travel to and from the hospital. Following your admission, the hospital will supply oxygen for your use. Notify the Surgeon For your safety, notify your surgeon if you develop any illness between now and surgery time -- cough, cold, fever, sore throat, nausea, vomiting, etc. If you have any changes in your health history or new medications are ordered between now and surgery, please notify your surgeon and Pre-admission testing ([phone]). Questions or Concerns? If you have any questions or concerns, feel free to call the contact number. We want to make sure you feel safe and have an excellent experience while you are here. Please do not reply to this message. Please call Pre-admission testing ([phone]) with any questions you may have. Same Day Surgery Unit - [facility] at [phone]; FTT: Main Entrance 1A, stop at front end loader driver and you will be sent to registration - [address] [place] [address], [place] [address]. DOORS OPEN AT 6 AM MON-SAT ANESTHESIA - COMMON SIDE EFFECTS (if present, these should resolve within 24 hours) TIREDNESS SHIVERING DIZZINESS DRY MOUTH MILD NAUSEA/VOMITING SORE THROAT OR HOARSENESS MILD PAIN OR DISCOMFORT IS NORMAL CALL THE SURGEON DAY OR NIGHT You have nausea or vomiting that doesn???t go away by the next morning. You experience severe pain not relieved by suggested medications. Thank you for letting us care for you. documented in this encounter Medications at Time [...] Tablet 10/11/2023 documented as of this encounter Discharge Disposition Disposition Code Departure Means Destination Home or Self Care documented in this encounter Nursing Notes * Nancy Hayes RN - 09/22/2023 8:15 AM EST REPORTS REQUEST ATTENTION: Aicha Davila MD PATIENT: Marguerite Martinez : 1960 This patient is scheduled for surgery on 10/11/2023 with Chika Warren MD Anesthesia has requested the most recent results of the following tests: Most Recent Office Visit Note, Any Recent EKG and any Recent Lab work COMMENTS:_Thanks! Please fax to Pre-admission testing. PHONE # [phone] ATTENTION: [address] [id number] documented in this encounter Plan of Treatment Not on file documented as of this encounter Procedures Procedure Name Priority Date/Time Associated Diagnosis Comments BB HISTORY CHECK Routine 09/22/2023 9:50 AM EST Preop testing PMB (postmenopausal bleeding) Complete uterovaginal prolapse SURGERY DATE Routine 09/22/2023 9:50 AM EST Preop testing PMB (postmenopausal bleeding) Complete uterovaginal prolapse PREADMISSION TYPE AND SCREEN Routine 09/22/2023 9:50 AM EST Preop testing PMB (postmenopausal bleeding) Complete uterovaginal prolapse ABORH Routine 09/22/2023 9:50 AM EST Preop testing PMB (postmenopausal bleeding) Complete uterovaginal prolapse CBC WITH DIFF Routine 09/22/2023 9:50 AM EST Preop testing PMB (postmenopausal bleeding) Complete uterovaginal prolapse ANTIBODY SCREEN IGG Routine 09/22/2023 9 :50 AM EST Preop testing PMB (postmenopausal bleeding) Complete uterovaginal prolapse documented in this encounter Results * BB HISTORY CHECK (09/22/2023 9:50 AM EST) BB HISTORY CHECK (1) No Previous History 09/22/2023 10:20 AM EST [facility] BLOOD BANK Blood VENOUS BLOOD / Unknown Venipuncture / Unknown 09/22/2023 9:50 AM EST 09/22/2023 9:58 AM EST Missy Henderson APRN BLOOD BANK ORDERABLES Final R esult [facility] B[facility]OD [facility] [address] [place], [place] [id number] * SURGERY DATE (09/22/2023 9:50 AM EST) Surgery Date (1) Complete 09/22/2023 10:20 AM EST [facility]OD [facility] Blood VENOUS BLOOD / Unknown Venipuncture / Unknown 09/22/2023 9:50 AM EST 09/22/2023 9:58 AM EST Missy Henderson FARM MACHINE TENDER BLOOD BANK ORDERABLES Final R esult Performing Organization Address City/[facility]/ZIP Co de Phone Number [facility] BLOOD BANK [address] [place] [address] * ANTIBODY SCREEN IGG (09/22/2023 9:50 AM EST) ABSC IgG Int Negative 09/22/2023 11:22 AM EST [facility] BLOOD [facility] Blood VENOUS BLOOD / Unknown Venipuncture / Unknown 09/22/2023 9:50 AM EST 09/22/2023 9:58 AM EST Missy Henderson APRN BLOOD BANK ORDERABLES Final R esult Performing Organization Address City/[facility]/ZIP Co de Phone Number [facility] [address] [place] [address] * ABORH (09/22/2023 9:50 AM EST) Pathologist [facility] ABORH Int A POS 09/22/2023 11:15 AM EST [facility] BLOOD [facility] Blood VENOUS BLOOD / Unknown Venipuncture / Unknown 09/22/2023 9:50 AM EST 09/22/2023 9:58 AM EST Missy Henderson [facility] BLOOD BANK ORDERABLES Final R esult Performing Organization Address City/[facility]/ZIP Co de Phone Number [facility]LOOD [facility] [address] [place] [address] * CBC WITH DIFF (09/22/2023 9:50 AM EST) WBC 6.6 3.7 - 10.3 x10(3)/mcL 09/22/2023 10:10 AM EST [facility] RBC 4.31 3.90 - 5.20 x10(6)/mcL 09/22/2023 10:10 AM EST [facility] Hgb 13.4 11.2 - 15.7 g/dL 09/22/2023 10:10 AM EST [facility] Hct 40.7 34.0 - 45.0 % 09/22/2023 10:10 AM EST [facility] MCV 94.4 80.0 - 100.0 fL 09/22/2023 10:10 AM EST [facility] MCH 31.1 26.0 - 34.0 pg 09/22/2023 10:10 AM EST [facility] MCHC 32.9 30.7 - 35.5 g/dL 09/22/2023 10:10 AM EST [facility] RDW 11.9 <=14.9 % 09/22/2023 10:10 AM EST [facility] Platelet 311 155 - 369 x10(3)/mcL 09/22/2023 10:10 AM EST [facility] MPV 10.5 8.8 - 12.5 fL 09/22/2023 10:10 AM EST [facility] Neut Percent 70.9 % 09/22/2023 10:10 AM EST [facility] Comment:Neutrophils equals s egs plus bands Imm Gran% 0.3 % 09/22/2023 10:10 AM EST [facility] Comment:Automated count of m etamyelocytes, myelocytes and promyelocytes. Lymph Percent 19.6 % 09/22/2023 10:10 AM EST [facility] Allen Percent 6.9 % 09/22/2023 10:10 AM EST [facility] Eos Percent 2.0 % 09/22/2023 10:10 AM EST [facility] Baso Percent 0.3 % 09/22/2023 10:10 AM EST [facility] Neut # 4.7 1.6 - 6.1 x10(3)/mcL 09/22/2023 10:10 AM EST [facility] Comment:Neutrophils equals s egs plus bands IMMGRAN# 0.0 0.0 - 0.1 x10(3)/mcL 09/22/2023 10:10 AM EST [facility] Comment:Automated count of m etamyelocytes, myelocytes and promyelocytes. An absolute IG <0.1 is reported as 0.0. Lymph # 1.3 1.2 - 3.9 x10(3)/mcL 09/22/2023 10:10 AM EST [facility] Allen # 0.5 0.3 - 0.9 x10(3)/mcL 09/22/2023 10:10 AM EST [facility] [employer] [facility] [employer] Eos# 0.1 0.0 - 0.5 x10(3)/mcL 09/22/2023 10:10 AM EST [facility] [employer], [facility] Baso # 0.0 0.0 - 0.1 x10(3)/mcL 09/22/2023 10:10 AM EST [facility] Blood VENOUS BLOOD / Unknown Venipuncture / Unknown 09/22/2023 9:50 AM EST 09/22/2023 10:09 AM EST us Missy Henderson FARM MACHINE TENDER HEMATOLOGY ORDERABLES Final R esult [facility] [address] [place] [address] documented in this encounter Visit Diagnoses Diagnosis Preop testing- Primary Preoperative examination, unspecified PMB (postmenopausal bleeding) Postmenopausal bleeding Complete uterovaginal prolapse Uterovaginal prolapse, complete documented in this encounter Historical Medications * This list may reflect changes made after this encounter. ascorbic acid/vitamin E/biotin (HAIR, SKIN, NAILS WITH BIOTIN ORAL) Take 1 Tablet by mouth daily. cyanocobalamin, vitamin B-12, (VITAMIN B-12) 5,000 mcg/mL SL Drops Place 1 mL under the tongue daily. Cholecalciferol, Vitamin D3, 50 mcg (2,000 unit) Oral Capsule Take 1 Capsule by mouth daily. added in this encounter
--- OUTSIDE RECORDS SUMMARY | 2024-08-04 08:36 | XMS_ITS | Encounter Summary ---
Author Organization [place] [address] Care Team Providers Care Poultry Hatchery Man Name Role Phone Unavailable Primary Care Provider Unavailabl e Reason for Visit * Reason Onset Date Comments Results 05/24/2023 pathology Encounter Details Date Type Department Care Team (Late st Contact Info) Description 05/24/2023 Telephone [facility] [address] [phone] Mary Rodriguez MA Results (pathology) Social History Tobacco Use Types Packs/Day Years Used Date Smoking Tobacco: Never Smokeless Tobacco: Never Comments No Sex and Gender Information Value Date Recorded Sex Assigned at Not on file Legal Sex Female 1:47 PM EDT Gender Identity Not on file Sexual Orientation Not on file documented as of this encounter Miscellaneous Notes * Telephone Encounter - Mary Rodriguez MA - 05/24/2023 9:23 AM EDT Patient informed. * Telephone Encounter - Mary Rodriguez MA - 05/24/2023 9:22 AM EDT ----- Message from Chika Johnson MD sent at 05/24/2023 8:13 AM EDT ----- Please call patient to notify her that the vulvar biopsies were benign (normal). They showed that the epithelium of the skin was thickened, but no other concerning findings or work up needed for this. Thank you! Nimo documented in this encounter Plan of Treatment Not on file documented as of this encounter Visit Diagnoses Not on filedocumented in this encounter
--- OUTSIDE RECORDS SUMMARY | 2024-08-04 08:36 | XMS_ITS | Encounter Summary ---
Author Organization [place] [address] Care Team Providers Care Hydrometer Tester Name Role Phone Unavailable Primary Care Provider Unavailabl e Reason for Visit * Reason Onset Date Comments Other 05/19/2023 Encounter Details Date Type Department Care Team (Late st Contact Info) Description 05/19/2023 Telephone [facility] [address] [phone] Gracie Manzano RMA Other Social History Tobacco Use Types Packs/Day Years Used Date Smoking Tobacco: Never Smokeless Tobacco: Never Comments No Sex and Gender Information Value Date Recorded Sex Assigned at Not on file Legal Sex Female 1:47 PM EDT Gender Identity Not on file Sexual Orientation Not on file documented as of this encounter Miscellaneous Notes * Telephone Encounter - Gracie Manzano RMA - 05/19/2023 1:35 PM EDT Pt called back. Ultrasound faxed over. Fax number is [phone]. * Telephone Encounter - Gracie Manzano RMA - 05/19/2023 1:07 PM EDT Pt called into the office asking if she can have the ultrasound done in [place] informed her yes but she needs to call and get a fax number for us to fax the ultrasound order. Pt verbalized understanding and will call us back. documented in this encounter Plan of Treatment Not on file documented as of this encounter Visit Diagnoses Not on filedocumented in this encounter
--- OUTSIDE RECORDS SUMMARY | 2024-08-04 08:36 | XMS_ITS | Encounter Summary ---
Author Organization [place] [address] Care Team Providers Care Rv Technician Name Role Phone Unavailable Primary Care Provider Unavailabl e Reason for Visit * Reason Comments Procedure * In Office Procedure (Routine) - Closed Specialty Diagnoses / Procedures Referred By Deon rizo Referred To Contact Physician Blacking Wheel Tender / Gynecology Diagnoses Postmenopausal bleeding EMB Procedures NC BIOPSY OF UTERUS LINING PROCEDURE Chika Johnson MD [address] [place] [id number] Phone: tel: fax: Penny Ferguson PA-C [address] [place] [address] Phone: tel: fax: Referral ID Status Reason Start Date Expiration Date Visits Re quested Visits Authorized [id number] Closed 06/30/2023 06/29/2024 1 1 Encounter Details Date Type Department Care Team (Latest Contact Info) Description 06/30/2023 10:00 AM EDT Procedure visit [facility] [address] [phone] Penny Ferguson PA-C [address] [place] [address] PMB (postmenopausal bleeding) (Primary Dx); Endometrial stripe increased Social History Tobacco Use Types Packs/Day Years [...] Taken Comments Blood Pressure - - Pulse 73 06/30/2023 10:14 AM EDT Temperature - - Respiratory Rate - - Oxygen Saturation 97% 06/30/2023 10:14 AM EDT Inhaled Oxygen Concentration - - Weight 66.2 kg (146 lb) 06/30/2023 10:14 AM EDT Height - - Body Mass Index - - documented in this encounter Progress Notes * Penny Farmer PA - 06/30/2023 10:00 AM EDT Images from the original note were not included. Yeni Farmer PA-C Procedure Note: Endometrial Biopsy Marguerite Martinez 1960 Indication: postmenopausal bleeding and elevated EMS on transvaginal ultrasound Patient has postmenopausal bleeding and elevated EMS on transvaginal ultrasound and therefore, she was consented for an endometrial biopsy. Risks of bleeding, infection, injury to surrounding structures, and potential uterine perforation were reviewed. Written consent form discussed and signed withpatient; will be scanned into Media tab. Questions were elicited and answered. Procedure: -Patient was placed in the dorsal lithotomy position -Speculum was placed and the cervix was visualized -Cervix was cleansed with Hibiclens in a normal sterile fashion -3 passes with a pipelle were performed with a scant amount of tissue returning -Tissue sent to pathology for further evaluation -Speculum was removed -Patient tolerated the procedure well Plan: -Tissue sample sent to pathology; will notify patient of results -Patient counseled that it is possible only endocervical tissue was obtained and she may need a D&C in the OR if tissue sample was insufficient for results -RTO as scheduled for consent visit Yeni Farmer PA-C [facility] [place] [address] 06/30/23 10:33 AM documented in this encounter Plan of Treatment Not on file documented as of this encounter Procedures Procedure Name Priority Date/Time Associated Diagnosis Comments PATHOLOGY TISSUE REQUEST Routine 06/30/2023 10:11 AM EDT PMB (postmenopausal bleeding) documented in this encounter Results * PATHOLOGY TISSUE REQUEST (06/30/2023 10:11 AM EDT) CASE REPORT Surgical Pathology ?Case: [id number] ? Authorizing Provider: ??Penny Farmer, ??Collected: ? 06/30/2023 1011 ? PA ? Ordering Location: ? [facility] [place] Received: ?06/30/2023 1011 ? Pathologist: ? Harjeet Mehta MD ? Specimen: ?Cervix ? 07/05/2023 10:38 AM EDT [facility] FINAL DIAGNOSIS Endometrium, biopsy: - Scant atrophic endometrium. - No atypia or carcinoma. 07/05/2023 10:38 AM EDT [facility] S DESCRIPTION Received in formalin, in a container labeled with the patient's name, hospital number, and cervix , is a 0.7 x 0.4 x 0.1 cm aggregate of ordoñez soft tissue. The specimen is submitted entirely in A1. ZN 07/01/2023 9:35 AM 07/05/2023 10:38 AM EDT [facility] MICROSCOPIC DESCRIPTION Microscopic examination is performed and the findings corroborate the diagnosis. 07/05/2023 10:38 AM EDT [facility] EMBEDDED IMAGES 07/05/2023 10:38 AM EDT [facility] Tissue SPECIMEN FROM UTERINE CERVIX / Unknown 06/30/2023 10:11 AM EDT 06/30/2023 10:11 AM EDT us Penny Ferguson PA-C PATHOLOGY ORDERABLES Final Result [facility] [address] [phone] [place] [address] documented in this encounter Visit Diagnoses Diagnosis PMB (postmenopausal bleeding)- Primary Postmenopausal bleeding Endometrial stripe increased Nonspecific (abnormal) findings on radiological and other examination of genitourinary organs documented in this encounter
--- OUTSIDE RECORDS SUMMARY | 2024-08-04 08:36 | XMS_ITS | Encounter Summary ---
Author Organization [place] [address] Care Team Providers Care Milk Driver Name Role Phone Unavailable Primary Care Provider Unavailabl e Reason for Visit * Reason Onset Date Comments Results 06/02/2023 Encounter Details Date Type Department Care Team (Late st Contact Info) Description 06/02/2023 Telephone [facility] [address] [phone] Penny Ferguson PA-C [address] [place] [id number] Results Social History Tobacco Use Types Packs/Day Years Used Date Smoking Tobacco: Never Smokeless Tobacco: Never Comments No Sex and Gender Information Value Date Recorded Sex Assigned at Not on file Legal Sex Female 1:47 PM EDT Gender Identity Not on file Sexual Orientation Not on file documented as of this encounter Miscellaneous Notes * Telephone Encounter - Gracie Manzano RMA - 06/02/2023 2:59 PM EDT Pt informed. Pt scheduled. * Telephone Encounter - Penny Farmer PA - 06/02/2023 7:48 AM EDT Received faxed ultrasound results (these are scanned into Media tab). EMS 4.7 mm and endometrium appears irregular. Recommend EMB. Will send note to staff about notifying patient and scheduling. Yeni Farmer PA-C documented in this encounter Plan of Treatment Not on file documented as of this encounter Visit Diagnoses Not on filedocumented in this encounter
--- OUTSIDE RECORDS SUMMARY | 2024-08-04 08:36 | XMS_ITS | Clinical Summary ---
Author Organization [facility] Address [address] [place] [address] Phone Care Team Providers Care Fire Systems Inspector Name Role Phone Bryce MERINO, Lio Holcomb Unavailable [phone] Reason for Visit and Chief Complaint The Chief Complaint is: Low back pain Problems Includes: Problems addressed during this encounter and other active Problems Current Visit Onset Date Resolved Date Provider Darwin marquez Status Lower Back Pain 08/03/2024 Lio Wu MD Act césar Last Documented On 4 8:57AM ; [facility], [facility] Plan of Treatment - Patient screened for future fall risk: documentation of any fall with injury in past year - Last Documented On 08/03/2024 9:56AM ; [facility], [facility] Future Appointments Date Time Location Provi ck Epidural Steroid Injection 08/16/2024 10:15AM [facility] K[facility] Ovalles LEAD PHP DEVELOPER Last Documented On 4 11:58AM ; [facility], [facility] Follow Up 09/28/2024 8:00AM [facility] EVIN Wu MD Last Documented On 4 11:59AM ; [facility], [facility] Instructions to patient Instructions for patient Last Documented On 4 8:59AM ; [facility], [facility] No intervention and counseli ng on cessation of tobacco use Last Documented On 4 8:59AM ; [facility], [facility] Lose weight Last Documented On 4 9:06AM ; [facility] Education and Decision Aids were provided during visit for: No health seminar on smoking cessation Last Documented On 4 8:59AM ; [facility] Assessments Includes: Assessments from this encounter No Assessments Recorded Instructions Includes: Instructions from this encounter Instructions to patient Instructions for patient Last Documented On 4 8:59AM ; [facility] No intervention and counseli ng on cessation of tobacco use Last Documented On 4 8:59AM ; [facility] Lose weight Last Documented On 4 9:06AM ; [facility] Education and Decision Aids were provided during visit for: No health seminar on smoking cessation Last Documented On 4 8:59AM ; [facility] Medical Equipment - Implanted Devices Includes: Current Devices No Medical Equipment Recorded Medications Includes: Medications discussed during this encounter and other current Medications Current Medications (continue as prescribed) traMADol HCl 50 MG Oral Tablet 08/01/2024 Provider: Pia Murcia APRN Diagnosis: Last Documented On 4 8:59AM By Jim Gann ; [facility] Methocarbamol 750 MG Oral Tablet 07/31/2024 Provider : Pia Murcia APRN Diagnosis: Last Documented On 4 8:59AM By Jim Gann ; [facility] Furosemide 20 MG Oral Tablet 06/30/2024 Provider: Pia Murcia APRN Diagnosis: Last Documented On 4 8:59AM By Jim Malcolm [facility] Potassium Chloride ER 20 MEQ Oral Tablet Extended Release 06/30/2024 Provider: Pia Murcia APRN Diagnosis: Last Documented On 4 8:59AM By Jim Malcolm [facility] Potassium Chloride ER 20 MEQ Oral Tablet Extended Release 06/30/2024 Provider: Pia Murcia APRN Diagnosis: Last Documented On 4 8:59AM By Jim Gann ; [facility] Diclofenac Potassium 50 MG Tablet 08/20/2016 Provide r: Diagnosis: Last Documented On 6 3:20PM By Meek Akins ; [facility] RaNITidine HCl 150 MG Capsule 08/20/2016 Provider: Diagnosis: Last Documented On 6 3:20PM By Meek Akins ; [facility] Amlodipine-Atorvastatin 10-10 MG Tablet 08/20/2016 Giancarlo siegel: Diagnosis: Last Documented On 6 3:20PM By Meek Akins ; [facility] Medications Administered Includes: Administered Medications from this encounter No Administered Medications Recorded Vital Signs Includes: Vital Signs from this encounter Vital Name 08/03/2024 09:02A Height (in) 63 Weight (lb) 142 Body Mass Index 25.2 Body Surface Area 1.7 Pain Level 8 Last Documented: On 08/03/2024 9:02AM ; [facility] Results Includes: Results discussed during this encounter No Results Recorded For Specified Dates History of Present Illness Includes: History of Present Illness from this encounter HPI Marguerite Martinez is a 64 year old female. - Symptoms Using ice makes pain better standing and walking ameks pain worse. - Allergy list reviewed - Problem list reviewed - Medication list reviewed - Medication list reviewed - Patient pain level from 1-10: 8 - History of Physical Therapy [facility] Rehabilitation Service - History of Chiropractic - No previous treatment. - - Review of medications documented Please rate pain on scale of 1 - 10: 3 Social History Description Last Updated Caffeine use 08/03/2024 Last Documented On 4 9:04AM ; [facility] No recent change in diet 08/03/2024 Last Documented On 4 9:04AM ; [facility] Not a current smoker. 08/03/2024 Last Documented On 4 9:04AM ; [facility] No recent change in diet 08/20/2016 Last Documented On 4 8:59AM ; [facility] Not a current smoker 08/20/2016 Last Documented On 4 8:59AM ; [facility] Not exercising regularly 08/20/2016 Last Documented On 4 8:59AM ; [facility] Not using alcohol 08/20/2016 Last Documented On 4 8:59AM ; [facility] Not using drugs 08/20/2016 Last Documented On 4 8:59AM ; [facility], [facility] No tobacco use 08/20/2016 Last Documented On 4 8:59AM ; [facility] Smoking status : Never smoker 08/20/2016 Last Documented On 4 8:59AM ; [facility] Procedures and Surgical History Includes: Procedures from this encounter Procedures Code Diagnosis Performing Provider Service L ocation Service Date history of orthopedic options: physical therapy Last Documented On 4 8:59AM ; [facility] no intervention and counseling on cessation of t obacco use 4000F Last Documented On 4 8:59AM ; [facility] Clinical summary provided to patient Last Documented On 4 8:59AM ; [facility] an X-ray was performed [id number] Last Documented On 4 9:04AM ; [facility] history of an X-ray was performed [facility] [id number] Last Documented On 4 8:59AM ; [facility], [facility] an MRI was performed 07/20/2024 L-spine @ [facility] [id number] Last Documented On 4 9:04AM ; [facility] Surgical History Last Updated History of hysterectomy 08/03/2024 Last Documented On 4 9:05AM ; [facility] Past Surgical History: bladder tuck 07/15 Last Documented On 4 9:05AM ; [facility] Medical History Includes: Medical History addressed during this encounter Description Last Updated Past medical history non-contributory Last Documented On 4 9:05AM ; [facility] Past medical and surgical history non-co ntributory 08/20/2016 Last Documented On 4 8:59AM ; [facility] Family History Includes: Family History addressed during this encounter Description Last Updated Family history of cancer 08/03/2024 Last Documented On 4 9:05AM ; [facility] Stroke / Seizures 08/03/2024 Last Documented On 4 9:05AM ; [facility] Family history of diabetes mellitus 04/2016 Last Documented On 4 8:59AM ; [facility], [facility] Review of Systems Includes: Review of Systems from this encounter Systemic: Not feeling tired, no recent weight loss, and no recent weight gain. No edema. Head: No headache and no sinus pain. Eyes: No vision problems. Vision problems. No glaucomatous visual field defect. No Cataracts. Glasses/Contacts. No Glaucoma. Otolaryngeal: No hearing loss and no tinnitus. No nasal symptoms. Cardiovascular: No chest pain or discomfort, no palpitations, no Hypertension, and no High Cholesterol. Pulmonary: No daytime asthma symptoms, no cough, and no chronic cough. No wheezing. Gastrointestinal: No heartburn and no abdominal pain. No Indigestion, no Peptic Ulcer, no GI Stomach Bleed, no Ulcers, and no Acid Reflux. Endocrine: No hot flashes, no muscle weakness, no Diabetes, no Hypothyroid, and no Hyperthyroid. Hematologic: No easy bleeding, no tendency for easy bruising, and no Anemia. Musculoskeletal: No Arthritis. Lower back pain and soft tissue swelling. No localized joint pain. Neurological: No dizziness, no convulsions, and no numbness. Psychological: No anxiety, no emotional lability, no depression, and no insomnia. Not crying for no reason. Skin: No dry skin. No Ulcers, no Scars, no rash, and no ulcers. Allergic and Immunologic: No complaint of seasonal allergic reaction. Mental Status Includes: Mental Status from this encounter Description No anxiety Functional Status Includes: Functional Status from this encounter No Functional Status Recorded Physical Exam Includes: Physical Exam from this encounter Allergies Includes: Active Allergies No Known Allergies Encounters Encounter Provider Location Date Check-In Time Check-Out Time Diagnosis Physician Specified Lio Wu MD [facility] 08/03/20 24 8:35AM 9:40AM Insurance Includes: Active Insurance Policies Plan Name Member ID Group # Subscriber Relationship Effect césar Dates - [facility] [id number] Marguerite Martinez Self Clinical Notes Includes: Clinical Notes from this encounter No Clinical Notes Recorded
--- OUTSIDE RECORDS SUMMARY | 2024-08-04 08:36 | XMS_ITS | Clinical Summary ---
Author Organization [facility] Address [address] [place] [address] Phone Care Team Providers Care Water Treatment Plant Supervisor Name Role Phone Lio Wu MD Unavailable [phone] Reason for Visit and Chief Complaint The Chief Complaint is: Low back pain Problems Includes: Problems addressed during this encounter and other active Problems Current Visit Onset Date Resolved Date Provider Darwin marquez Status Lower Back Pain 08/03/2024 Lio Wu MD Act césar Last Documented On 4 8:57AM ; [facility] Plan of Treatment Patient was seen by myself and Dr. Wu to help her pain a little bit better. Plan will be to try epidural injections. Return to work September 14. We'll see her back in 6 weeks Jose Luis Mason PA-C - Last Documented On 09/17/2016 1:00PM ; [facility] Future Appointments Date Time Location Provi ck Epidural Steroid Injection 08/16/2024 10:15AM [facility] KLAUS [facility] [employer] Last Documented On 4 11:58AM ; [facility] Follow Up 09/28/2024 8:00AM [facility] EVIN Wu MD Last Documented On 4 11:59AM ; [facility] Instructions to patient Instructions for patient Last Documented On 6 3:18PM ; [facility] No intervention and counseli ng on cessation of tobacco use Last Documented On 6 3:18PM ; [facility] Education and Decision Aids were provided during visit for: No health seminar on smoking cessation Last Documented On 6 3:18PM ; [facility] Assessments Includes: Assessments from this encounter Findings L4-L5 spondylolisthesis - Last Documented On 09/17/2016 1:00PM ; [facility] L5-S1 DDD - Last Documented On 09/17/2016 1:00PM ; [facility] Instructions Includes: Instructions from this encounter Instructions to patient Instructions for patient Last Documented On 6 3:18PM ; [facility] No intervention and counseli ng on cessation of tobacco use Last Documented On 6 3:18PM ; [facility] Education and Decision Aids were provided during visit for: No health seminar on smoking cessation Last Documented On 6 3:18PM ; [facility] Medical Equipment - Implanted Devices Includes: Current Devices No Medical Equipment Recorded Medications Includes: Medications discussed during this encounter and other current Medications Current Medications (continue as prescribed) traMADol HCl 50 MG Oral Tablet 08/01/2024 Provider: Pia Murcia APRN Diagnosis: Last Documented On 4 8:59AM By Jim Gann ; [facility] Methocarbamol 750 MG Oral Tablet 07/31/2024 Provider : Pia Murcia APRN Diagnosis: Last Documented On 4 8:59AM By Jim Gann ; [facility] Furosemide 20 MG Oral Tablet 06/30/2024 Provider: Pia Murcia APRN Diagnosis: Last Documented On 4 8:59AM By Jim Gann ; [facility] Potassium Chloride ER 20 MEQ Oral Tablet Extended Release 06/30/2024 Provider: Pia Murcia APRN Diagnosis: Last Documented On 4 8:59AM By Jim Gann ; [facility] Potassium Chloride ER 20 MEQ Oral Tablet Extended Release 06/30/2024 Provider: Pia Murcia APRN Diagnosis: Last Documented On 4 8:59AM By Jim Gann ; [facility] Diclofenac Potassium 50 MG Tablet 08/20/2016 Provide r: Diagnosis: Last Documented On 6 3:20PM By POLLY Kumar RaNITidine HCl 150 MG Capsule 08/20/2016 Provider: Diagnosis: Last Documented On 6 3:20PM By POLLY Kumar Amlodipine-Atorvastatin 10-10 MG Tablet 08/20/2016 Giancarlo siegel: Diagnosis: Last Documented On 6 3:20PM By Meek Akins ; [facility] Medications Administered Includes: Administered Medications from this encounter No Administered Medications Recorded Vital Signs Includes: Vital Signs from this encounter Vital Name 08/20/2016 03:19P Blood Pressure Sitting (mmHg) 152/87 Pulse Rate-Sitting (bpm) 72 Height (in) 63 Weight (lb) 142 Body Mass Index (kg/m2) 25.2 Body Surface Area (m2) 1.7 Pain Level 3 Note: aco Last Documented: On 08/20/2016 3:32PM ; [facility] Results Includes: Results discussed during this encounter No Results Recorded For Specified Dates History of Present Illness Includes: History of Present Illness from this encounter HPI Marguerite Martinez is a 56 year old female. - Medication list reviewed. - Previous history of chronic pain - Pain is constant (100% of the time) Please rate pain on scale of 1 - 10: 3 Patient is complaining of back pain since 1989 and buttock pain, worse last 6 weeks. Feels worse and she tries to do activities at work, light bending forward or backwards or lifting. She had an injection at her primary doctor's office in June and the buttock, which did give her 2 weeks relief. no bowel or bladder problems, no leg pain. She's done 6 weeks of PT which has helped to some degree. She's had chiropractic treatment in the past. Social History Description Last Updated No caffeine use 08/20/2016 Last Documented On 7 1:00PM ; [facility] No recent change in diet 08/20/2016 Last Documented On 7 1:00PM ; [facility] Not a current smoker 08/20/2016 Last Documented On 7 1:00PM ; [facility] Not exercising regularly 08/20/2016 Last Documented On 7 1:00PM ; [facility] Not using alcohol 08/20/2016 Last Documented On 7 1:00PM ; [facility] Not using drugs 08/20/2016 Last Documented On 7 1:00PM ; [facility] No tobacco use 08/20/2016 Last Documented On 7 1:00PM ; [facility] Smoking status : Never smoker 08/20/2016 Last Documented On 7 1:00PM ; [facility] Procedures and Surgical History Includes: Procedures from this encounter Procedures Code Diagnosis Performing Provider Service L ocation Service Date history of orthopedic options: physical therapy Last Documented On 6 3:18PM ; [facility] no intervention and counseling on cessation of t obacco use 4000F Last Documented On 6 3:18PM ; [facility] Clinical summary provided to patient Last Documented On 6 3:18PM ; [facility] history of an X-ray was performed [facility] [id number] Last Documented On 6 3:18PM ; [facility] Medical History Includes: Medical History addressed during this encounter Description Last Updated Past medical and surgical history non-co ntributory 08/20/2016 Last Documented On 7 1:00PM ; [facility] Family History Includes: Family History addressed during this encounter Description Last Updated Family history of diabetes mellitus 04/2016 Last Documented On 7 1:00PM ; [facility] Review of Systems Includes: Review of Systems from this encounter Systemic: Not feeling tired (fatigue), no recent weight loss, and no recent weight gain. No edema. Head: No headache, no sinus pain, and no sinus pain. Eyes: No vision problems. Vision problems. No glaucomatous visual field defect. Otolaryngeal: No hearing loss, no hearing loss, and no tinnitus. No nasal symptoms. Cardiovascular: No chest pain or discomfort, no chest pain or discomfort, and no palpitations. Pulmonary: No daytime asthma symptoms, no cough, and no chronic cough. No wheezing. Gastrointestinal: No heartburn, no heartburn, and no abdominal pain. Endocrine: No hot flashes and no muscle weakness. Hematologic: No easy bleeding and no tendency for easy bruising. Musculoskeletal: No lower back pain. No soft tissue swelling and no localized joint pain. Neurological: No dizziness, no convulsions, and no numbness. Psychological: No anxiety, no emotional lability, no depression, and no insomnia. Not crying for no reason. Skin: No dry skin, no rash, and no ulcers. Allergic and Immunologic: No complaint of seasonal allergic reaction. Mental Status Includes: Mental Status from this encounter Description No anxiety Functional Status Includes: Functional Status from this encounter No Functional Status Recorded Physical Exam Includes: Physical Exam from this encounter Allergies Includes: Active Allergies No Known Allergies Encounters Encounter Provider Location Date Check-In Time Check-Out Time Diagnosis NEW PATIENT Lio Wu MD [facility] 08/20/20 16 2:58PM 4:26PM Insurance Includes: Active Insurance Policies Plan Name Member ID Group # Subscriber Relationship Effect césar Dates - [facility] [id number] Marguerite Martinez Self Clinical Notes Includes: Clinical Notes from this encounter No Clinical Notes Recorded
--- OUTSIDE RECORDS SUMMARY | 2024-08-04 08:36 | XMS_ITS | Encounter Summary ---
Author Organization [place] [address] Care Team Providers Care Digital Product Manager Name Role Phone Unavailable Primary Care Provider Unavailabl e Reason for Visit * Reason Onset Date Comments Schedule Appointment 03/18/2023 Encounter Details Date Type Department Care Team (Late st Contact Info) Description 03/18/2023 Telephone [facility] [address] [address] Sandee Vegas MA Schedule Appointment Social History Tobacco Use Types Packs/Day Years Used Date Smoking Tobacco: Never Assessed Comments Unknown Sex and Gender Information Value Date Recorded Sex Assigned at Not on file Legal Sex Female 1:47 PM EDT Gender Identity Not on file Sexual Orientation Not on file documented as of this encounter Miscellaneous Notes * Telephone Encounter - Sandee Vegas MA - 03/18/2023 8:30 AM EDT LM for patient to move appointment on 05/19/[address] Villeda to possibly today, or Wednesday03/22/23 [address]Dr. Villeda has opened the afternoons. Patient informed that she may miss this opportunity if she does not receive this message, as we arereaching out to patients to fill these appointments. documented in this encounter Plan of Treatment Not on file documented as of this encounter Visit Diagnoses Not on filedocumented in this encounter
--- OUTSIDE RECORDS SUMMARY | 2024-08-04 08:36 | XMS_ITS | Encounter Summary ---
Author Organization [facility] [place] [address] Care Team Providers Care Family Preservation Caseworker Name Role Phone Unavailable Primary Care Provider Unavailabl e Reason for Visit * Reason Onset Date Comments Surgery Scheduling 07/12/2023 Encounter Details Date Type Department Care Team (Late st Contact Info) Description 07/12/2023 Telephone [facility] [address] [address] Glenis March LPN Surgery Scheduling Social History Tobacco Use Types Packs/Day Years Used Date Smoking Tobacco: Never Smokeless Tobacco: Never Comments No Sex and Gender Information Value Date Recorded Sex Assigned at Not on file Legal Sex Female 1:47 PM EDT Gender Identity Not on file Sexual Orientation Not on file documented as of this encounter Ordered Prescriptions Prescription Sig Dispense Quantity Refills Last Filled Start Date End Date polyethylene glycol (GLYCOLAX) 17 gram/dose Oral Powder Begin Miralax, 17 g (1 capful) PO mixed in your favorite drink once a day beginning 1 week prior to surgery, after surgery drink this twice a day for 2 weeks 595 g 10/04/2023 documented in this encounter Miscellaneous Notes * Telephone Encounter - Glenis March LPN - 08/30/2023 3:18 PM EST Called and spoke with patient advising that I have an opening in surgery schedule for 09/27/23 and patient is on WAIT LIST. She does NOT want to move her surgery now because her time off has been worked out with her company. I told her that this is fine, I understand. Removed her from WAIT LIST. * Addendum Note - Glenis March LPN - 07/13/2023 11:39 AM EDTAddended by: GLENIS MARCH on: 07/13/2023 11:39 AM Modules accepted: Orders * Telephone Encounter - Glenis March LPN - 07/13/2023 11:22 AM EDTSummary: Surgery Scheduled Discussed surgery date(s)/time(s) w/ Dr. Villeda. Date: 10/11/23 Time: 0730 o be Scheduled: Total vaginal hysterectomy, bilateral salpingectomy, possible oophorectomy, uterosacral ligament suspension, anterior & posterior repair, retropubic midurethral sling, cystoscopy WAITLISTED *Patient may return to work at 6 weeks without restrictions. *Advised need Pre-Op H/P within 30 days of surgery *Expect a call from [facility] for Pre-Reg *Miralax called in *Letter mailed to patient * Telephone Encounter - Glenis March LPN - 07/12/2023 3:24 PM EDT Lmtcb to discuss surgery date(s)/time(s) w/ Dr. Villeda. To be Scheduled: Total vaginal hysterectomy, bilateral salpingectomy, possible oophorectomy, uterosacral ligament suspension, anterior & posterior repair, retropubic midurethral sling, cystoscopy *Patient may return to work at 6 weeks without restrictions. documented in this encounter Plan of Treatment Scheduled Orders Name Type Priority Associated Diagnoses Orde r Schedule SURGICAL/PROCEDURE CASE REQUEST - ERAS Procedures Routine Complete uterovaginal prolapse PMB (postmenopausal bleeding) Endometrial stripe increased DAVID (stress urinary incontinence, female) Ordered: 07/13/2023 documented as of this encounter Visit Diagnoses Diagnosis Complete uterovaginal prolapse- Primary Uterovaginal prolapse, complete PMB (postmenopausal bleeding) Postmenopausal bleeding Endometrial stripe increased Nonspecific (abnormal) findings on radiological and other examination of genitourinary organs DAVID (stress urinary incontinence, female) Female stress incontinence documented in this encounter
--- OUTSIDE RECORDS SUMMARY | 2024-08-04 08:36 | XMS_ITS ---
Author Organization [facility] Address [address] [place] [address] Phone Care Team Providers Care Servomechanism Designer Name Role Phone Lio Wu MD Unavailable [phone] Problems Includes: Active, inactive, and resolved Problems All Visits Onset Date Resolved Date Provider Condition S tatus Lower Back Pain 08/03/2024 Lio Wu MD Act césar Last Documented On 4 8:57AM ; [facility] Plan of Treatment Findings Encounter Date Patient screened for future fall risk: documentation of any fall with injury in past year Physician Specified with Lio Wu MD 08/03/2024 Last Documented On 4 9:56AM ; [facility] Future Appointments Date Time Location Provi ck Epidural Steroid Injection 08/16/2024 10:15AM [facility] Last Documented On 4 11:58AM ; [facility] Follow Up 09/28/2024 8:00AM [facility] EVIN Wu MD Last Documented On 4 11:59AM ; [facility] Instructions to patient Instructions for patient Last Documented On 4 8:59AM ; [facility] No intervention and counseli ng on cessation of tobacco use Last Documented On 4 8:59AM ; [facility] Lose weight Last Documented On 4 9:06AM ; [facility] Instructions for patient Last Documented On 6 3:18PM ; [facility] No intervention and counseli ng on cessation of tobacco use Last Documented On 6 3:18PM ; [facility] Education and Decision Aids were provided during visit for: No health seminar on smoking cessation Last Documented On 4 8:59AM ; [facility] No health seminar on smoking cessation Last Documented On 6 3:18PM ; [facility] Assessments Includes: Assessments for all patient encounters No Assessments Recorded Instructions Includes: Instructions for all patient encounters Instructions to patient Instructions for patient Last Documented On 4 8:59AM ; [facility] No intervention and counseli ng on cessation of tobacco use Last Documented On 4 8:59AM ; [facility] Lose weight Last Documented On 4 9:06AM ; [facility] Instructions for patient Last Documented On 6 3:18PM ; [facility] No intervention and counseli ng on cessation of tobacco use Last Documented On 6 3:18PM ; [facility] Education and Decision Aids were provided during visit for: No health seminar on smoking cessation Last Documented On 4 8:59AM ; [facility] No health seminar on smoking cessation Last Documented On 6 3:18PM ; [facility] Medical Equipment - Implanted Devices Includes: Current and historical Devices No Medical Equipment Recorded Medications Includes: Current and historical Medications Current Medications (continue as prescribed) traMADol HCl 50 MG Oral Tablet 08/01/2024 Provider: Pia Murcia APRN Diagnosis: Last Documented On 4 8:59AM By Jim Gann ; [facility] Methocarbamol 750 MG Oral Tablet 07/31/2024 Provider : Pia Murcia APRN Diagnosis: Last Documented On 4 8:59AM By Jim Gann ; [facility] Furosemide 20 MG Oral Tablet 06/30/2024 Provider: Pia Murcia APRN Diagnosis: Last Documented On 4 8:59AM By Jim Gann ; [facility] Potassium Chloride ER 20 MEQ Oral Tablet Extended Release 06/30/2024 Provider: Pia Murcia APRN Diagnosis: Last Documented On 4 8:59AM By Jim Gann ; [facility] Potassium Chloride ER 20 MEQ Oral Tablet Extended Release 06/30/2024 Provider: Pia Murcia APRN Diagnosis: Last Documented On 4 8:59AM By Jim Gann ; [facility] Diclofenac Potassium 50 MG Tablet 08/20/2016 Provide r: Diagnosis: Last Documented On 6 3:20PM By Meek Akins ; [facility] RaNITidine HCl 150 MG Capsule 08/20/2016 Provider: Diagnosis: Last Documented On 6 3:20PM By Meek Akins ; [facility] Amlodipine-Atorvastatin 10-10 MG Tablet 08/20/2016 P rovider: Diagnosis: Last Documented On 6 3:20PM By Meek Akins ; [facility] Medications Administered Includes: Administered Medications in patient's chart No Administered Medications Recorded Vital Signs Includes: Vital Signs from 08/04/2023 through 08/04/2024 Vital Name 08/03/2024 09:02A Height (in) 63 Weight (lb) 142 Body Mass Index 25.2 Body Surface Area 1.7 Pain Level 8 Last Documented: On 08/03/2024 9:02AM ; [facility] Results Includes: Results from 08/04/2023 through 08/04/2024 No Results Recorded For Specified Dates History of Present Illness History of Present Illness not supported for this document type No History of Present Illness Recorded Social History Description Last Updated No caffeine use 08/20/2016 Last Documented On 7 1:00PM ; [facility] No recent change in diet 08/20/2016 Last Documented On 7 1:00PM ; [facility] Not a current smoker 08/20/2016 Last Documented On 7 1:00PM ; [facility] Not exercising regularly 08/20/2016 Last Documented On 7 1:00PM ; [facility] Not using alcohol 08/20/2016 Last Documented On 7 1:00PM ; [facility] Not using drugs 08/20/2016 Last Documented On 7 1:00PM ; [facility] No tobacco use 08/20/2016 Last Documented On 7 1:00PM ; [facility] Smoking status : Never smoker 08/20/2016 Last Documented On 7 1:00PM ; [facility] Medical History Includes: Medical History in patient's chart Description Last Updated Past medical and surgical history non-co ntributory 08/20/2016 Last Documented On 7 1:00PM ; [facility] Family History Includes: Family History in patient's chart Description Last Updated Family history of diabetes mellitus 04/2016 Last Documented On 7 1:00PM ; [facility] Review of Systems Review of Systems not supported for this document type No Review of Systems Recorded Mental Status Description No anxiety Functional Status No Functional Status Recorded Physical Exam Physical Exam not supported for this document type No Physical Exam Recorded Allergies Includes: Active, inactive, and resolved Allergies No Known Allergies Encounters Includes: Encounters from 08/04/2023 through 08/04/2024 Encounter Provider Location Date Check-In Time Check-Out Time Diagnosis Physician Specified Lio Wu MD [facility] 08/03/20 24 8:35AM 9:40AM Insurance Includes: Active Insurance Policies Plan Name Member ID Group # Subscriber Relationship Effect césar Dates - [facility] [id number] Marguerite Martinez [facility] Clinical Notes Includes: Signed Clinical Notes starting from 08/27/2022 No Clinical Notes Recorded
== END 2024-08-04 23:59 | disposition home or self-care (01) ==
LOC: RT 08:33
PROVIDERS: PCP Nurse Practitioner; Visit Provider Nurse Practitioner
DX: M79.604 Pain in right leg (principal); R60.9 Edema, unspecified
CPT/HCPCS: 93923

== ENCOUNTER 2025-05-16 12:27 | Outpatient (CLI) | payer BC, SELFPAY ==
--- OUTSIDE RECORDS SUMMARY | 2025-05-16 12:34 | XMS_ITS | Clinical Summary ---
Author Organization [facility] Address [address] [place] [address] Phone Care Team Providers Care Time Clock Mechanic Name Role Phone Jean Davila MD Primary Care Provider [phone] Allergies No known active allergies Medications estradioL [...] (postmenopausal bleeding) 07/07/2023 Complete uterovaginal prolapse 05/19/2023 Surgical History Surgery Date Site/Laterality Comments TUBAL LIGATION CYSTOCELE REPAIR 10/11/2023 N/A .; Surgeon: Chika Johnson MD; Location: [facility] MAIN OR; Service: Gynecology Medical devices from this surgery are in the Medical Devices section. MS COLPOPEXY VAGINAL INTRAPERITONEAL APPROACH 10/11/2023 N/A .; Surgeon: Chika Johnson MD; [...] 80 07/19/2024 7:46 AM EST Temperature 36.3 C (97.3 F) 10/11/2023 4:10 PM EST Respiratory Rate 16 04/12/2024 7:47 AM EDT Oxygen Saturation 99% 07/19/2024 7:46 AM EST Inhaled Oxygen Concentration - - Weight 65.5 kg (144 lb 6.4 oz) 07/19/2024 7:46 A M EST Height 160 cm (5' 3 ) 04/12/2024 7:47 AM EDT Body Mass Index 25.58 04/12/2024 7:47 AM EDT Plan of Treatment Health Maintenance Due Date Last Done Comments Annual Wellness Exam 1961 Hepatitis C Screening 02/29/1976 DTaP/TDaP/Td (1 - Tdap) 1977 Breast Cancer Screening 1998 Cologuard 2003 Colon Cancer Screening 2003 Colonoscopy 2003 FIT 2003 Sigmoidoscopy 2003 Virtual Colonography 2003 Pneumococcal Vaccine 50+ (1 of 1 - PCV) 02/29/2008 Zoster (1 of 2) 02/29/2008 Bone Density Screening 2023 COVID-19 Vaccine (3 - 2024-2 6 season) 2025 02/08/2021, 01/11/2021 Influenza Vaccine (#1) 2025 Hepatitis B Vaccine Aged Out No longe r eligible based on patient's age to complete this topic Meningococcal B Vaccine Aged Out No l onger eligible based on patient's age to complete this topic Medical Devices Implanted Type Area Card Mounter Device Identifier Shelf Expiration Date Model / Serial / Lot Desara Blue Tv Transvaginal Mesh Sling - [id number] Implanted:Qty: 1 on 10/11/2023 by Chika Johnson MD at [facility] N/A: Vagina [employer] 06/22/2026 [id number] / / [id number] Insurance MEDICARE PART A on file Member Subscriber Plan / Payer (Ef fective 2022-) Name:Marguerite Martinez Member ID:[id number] Relation to Subscriber:Self Name:Marguerite Martinez Subscriber ID:[id number] Payer ID:[id number] (NAIC) Group ID:Not on file Type:Not on file Address: [address] [place] [id number] Care Teams Time Clock Mechanic Relationship Specialty Start Date End Date Jean Davila MD [address] [place] [address] PCP - General Family Medicine 10/04/23
--- OUTSIDE RECORDS SUMMARY | 2025-05-16 12:34 | XMS_ITS | Clinical Summary ---
[facility] Address [address] [place] [address] Care Team Providers Care Career Development Facilitator Name Role Phone Pia Murcia APRN Primary Care Provider [phone] Allergies No known active allergies Medications furosemide [...] hypertension 07/07/2024 Bilateral lower extremity edema 07/07/2024 Family History Medical History Relation Name Comments [...] 07/12/2024 12:51 PM EDT Plan of Treatment Health Maintenance Due Date Last Done Comments DXA SCAN 1958 TDAP/TD VACCINES (1 - Tdap) 1977 MAMMOGRAM 1998 COLOGUARD 2003 COLON CANCER SCREENING 5 YEA R SIGMOIDOSCOPY 2003 COLONOSCOPY 2003 COL[address]AL CANCER SCREENING 2003 CT COLONOGRAPHY 2003 FECAL OCCULT BLOOD TEST 2003 FIT Testing (1 year) 2003 Pneumococcal Vaccine 50+ (1 of 1 - PCV) 02/29/2008 ZOSTER VACCINE (1 of 2) 02/29/2008 COVID-19 Vaccine (3 - season) 2024, 01/11/2021 ANNUAL PHYSICAL 07/07/2024 HEPATITIS C SCREENING 07/07/2024 INFLUENZA VACCINE 06/13/2025 Insurance PPO Care Teams Career Development Facilitator Relationship Specialty Start Date End Date Pia Murcia APRN [address] [place] [address] PCP - General Nurse Practitioner 07/06/24
--- NOTE | 2025-05-16 12:36 | XR_ITS ---
FINAL REPORT CLINICAL HISTORY: .lt shoulder pain COMPARISON: None FINDINGS: LEFT SHOULDER 3 views of the left shoulder were obtained. There is no acute fracture or dislocation. Visualized joint spaces are normally aligned. Soft tissues are unremarkable. IMPRESSION: No acute bony abnormality. Reviewed, Interpreted and Dictated by Wil Reed MD Transcribed by Sandee Chopra Authenticated and [facility]
--- NOTE | 2025-05-16 12:36 | XR_ITS ---
FINAL REPORT CLINICAL HISTORY: PAIN COMPARISON: None FINDINGS: Three views of the cervical spine were obtained. There is no fracture present. There is moderate disc space narrowing at C3-4 through C6-7. Minimal spondylolisthesis is noted of C4 on C5. There is posterior osteophyte formation at C4-5 and C5-6. IMPRESSION: Degenerative/chronic changes without acute bony abnormality. 3 views of the thoracic spine were obtained. There is no fracture present. The vertebrae are normal in height. There is no malalignment. Mild anterior osteophyte formation is noted in the mid thoracic spine. IMPRESSION: Degenerative/chronic changes without acute bony abnormality. Reviewed, Interpreted and Dictated by Wil Reed MD Transcribed by Sandee Chopra Authenticated and [facility]
== END 2025-05-16 23:59 | disposition home or self-care (01) ==
LOC: RAD 12:32
PROVIDERS: PCP Nurse Practitioner; Visit Provider Nurse Practitioner
DX: M47.812 Spondylosis without myelopathy or radiculopathy, cervical region (principal); M47.814 Spondylosis without myelopathy or radiculopathy, thoracic region; M25.512 Pain in left shoulder
CPT/HCPCS: 72083; 73030

== ENCOUNTER 2025-05-24 15:03 | Outpatient (CLI) | payer BC, SELFPAY ==
--- OUTSIDE RECORDS SUMMARY | 2025-05-24 15:09 | XMS_ITS | Clinical Summary ---
[facility] Address [address] [place] [address] Care Team Providers Care Actuarial Internship Name Role Phone Pia Murcia APRN Primary Care Provider [phone] Allergies No known active allergies Medications furosemide [...] 02/29/2008 ZOSTER VACCINE (1 of 2) 02/29/2008 ANNUAL PHYSICAL 07/07/2024 HEPATITIS C SCREENING 07/07/2024 COVID-19 Vaccine (2024- season) 2025, 01/11/2021 INFLUENZA VACCINE 06/13/2025 Insurance PPO Care Teams Actuarial Internship Relationship Specialty Start Date End Date Pai Murcia APRN [address] [place] [address] PCP - General Nurse Practitioner 07/06/24
--- OUTSIDE RECORDS SUMMARY | 2025-05-24 15:09 | XMS_ITS | Clinical Summary ---
Author Organization [facility] Address [address] [place] [address] Phone Care Team Providers Care Manager Spring Name Role Phone Jean Davila MD Primary Care Provider [phone] Allergies No known active allergies Medications estradioL [...] surgery are in the Medical Devices section. [place] COLPOPEXY VAGINAL INTRAPERITONEAL APPROACH 10/11/2023 Right N/A N/A N/A Vagina /N/A Vulva/N/A .; Surgeon: Chika Johnson MD; Location: [facility] [...] this topic Medical Devices Implanted Type Area Care Giver Device Identifier Shelf Expiration Date Model / Serial / Lot Mukesh Blue Tv Transvaginal Mesh Sling - [id number] Implanted:Qty: 1 on 10/11/2023 by Chika Johnson MD at [facility] N/A: Vagina [employer] 06/22/2026 [id number] / / [id number] Insurance MEDICARE PART A on file [facility] PPO Care Teams Manager Spring Relationship Specialty Start Date End Date Jean Davila MD [address] [place] [address] PCP - General Family Medicine 10/04/23
--- NOTE | 2025-05-24 15:19 | MM_ITS ---
PROCEDURE INFORMATION: Exam: MG Bilateral Screening 3D Mammography Exam date and time: 05/24/2025 3:22 PM Age: 65 years old Clinical indication: Screening examination TECHNIQUE: Imaging protocol: Bilateral Screening tomosynthesis and 2D mammography including computer-aided detection (CAD) when performed. COMPARISON: 1. MG MM DIG MAMM DX UNILAT RT CAD 02/17/2023 2:29 PM 2. MG MM DIG SCREENING MAMM BI W/CAD 01/27/2023 7:51 AM FINDINGS: MAMMOGRAPHY: Breast composition: There are scattered areas of fibroglandular density. Mass: None. Architectural distortion: None. Calcifications: No suspicious calcifications. Asymmetric density: None. Skin thickening: None. Axillary adenopathy: None. IMPRESSION: No mammographic evidence of malignancy. Annual screening is recommended unless otherwise clinically indicated. ASSESSMENT: BI-RADS Category 1: Negative.
== END 2025-05-24 23:59 | disposition home or self-care (01) ==
LOC: RAD 15:04
PROVIDERS: PCP Nurse Practitioner; Visit Provider Nurse Practitioner
DX: Z12.31 Encounter for screening mammogram for malignant neoplasm of breast (principal); R92.323 Mammographic fibroglandular density, bilateral breasts
CPT/HCPCS: 77063; 77067

== ENCOUNTER 2025-05-30 07:23 | Outpatient (CLI) | payer BC, SELFPAY ==
--- NOTE | 2025-05-30 07:24 | CT_ITS ---
FINAL REPORT TECHNIQUE: IV contrast enhanced exam This study was performed with techniques to keep radiation doses as low as reasonably achievable, (ALARA). Individualized dose reduction techniques using automated exposure control or adjustment of mA and/or kV according to the patient's size were employed. CLINICAL HISTORY: NAUSEA AND ABD PAIN COMPARISON: None FINDINGS: Abdomen: Lung bases are clear. The gallbladder is unremarkable. No biliary obstruction is identified. Liver has an unremarkable CT appearance. The spleen, pancreas and adrenal glands are unremarkable. Kidneys show no mass or obstruction. No bowel obstruction or fluid collection is seen. Pelvis: The appendix is not visualized. Pelvic bowel loops are unremarkable. The uterus is surgically absent, and pelvic floor prolapse is identified. No fluid collection or adenopathy is seen. IMPRESSION: No acute CT abnormality of the abdomen and pelvis. Reviewed, Interpreted and Dictated by Gagan Gonzalez MD Transcribed by Edith Esteves Authenticated and [facility]
--- OUTSIDE RECORDS SUMMARY | 2025-05-30 07:24 | XMS_ITS | Clinical Summary ---
[facility] Address [address] [address] Care Team Providers Care Inspector Poising Name Role Phone Pia Murcia APRN Primary Care Provider [phone] Allergies No known active allergies Medications furosemide [...] INFLUENZA VACCINE 06/13/2025 Insurance PPO Care Teams Inspector Poising Relationship Specialty Start Date End Date Pia Murcia APRN [address] [place] [address] PCP - General Nurse Practitioner 07/06/24
--- OUTSIDE RECORDS SUMMARY | 2025-05-30 07:24 | XMS_ITS | Clinical Summary ---
Author Organization [facility] Address [address] [place] [address] Phone Care Team Providers Care Seafood Processor Name Role Phone Jean Davila MD Primary Care Provider [phone] Allergies No known active allergies Medications estradioL [...] surgery are in the Medical Devices section. [place] COLPOPEXY VAGINAL INTRAPERITONEAL APPROACH 10/11/2023 Right N/A [...] this topic Medical Devices Implanted Type Area Miller Apprentice Device Identifier Shelf Expiration Date Model / Serial / Lot Mukesh Blue Tv Transvaginal Mesh Sling - [id number] Implanted:Qty: 1 on 10/11/2023 by Chika Johnson MD at [facility] N/A: Vagina [employer] 06/22/2026 [id number] V / / [id number] Insurance MEDICARE PART A on file [facility] PPO Care Teams Seafood Processor Relationship Specialty Start Date End Date Jean Davila MD [address] [place] [address] PCP - General Family Medicine 10/04/23
[2025-05-30 07:51] LABS: Blood Urea Nitrogen 13 mg/dl (7-17); Creatinine,Serum 0.70 mg/dl (0.52-1.04); Estimated Glomerular Filt Rate 83 ml/min (>60); GFR (African American) 101 ML/MIN (>60)
[2025-05-30] MEDS: SODIUM CHLORIDE 0.9% 10ML SYR (RAD ONLY) 10 ML IV (08:40)
[2025-05-30] MEDS: IOPAMIDOL-370 (76%);100ML BOTTLE 75 ML IV (08:40)
== END 2025-05-30 23:59 | disposition home or self-care (01) ==
LOC: RAD 07:23
PROVIDERS: PCP Nurse Practitioner; Visit Provider Nurse Practitioner
DX: R10.9 Unspecified abdominal pain (principal); R11.0 Nausea
CPT/HCPCS: 36415; 74177; 82565; 84520; Q9967

== ENCOUNTER 2025-08-29 09:26 | Day surgery (SDC) | payer BC, SELFPAY ==
--- NOTE | 2025-08-23 17:22 | EXP.HP ---
History of Present Illness *Admission Date: 08/29/25 *History of present illness: Mrs. Martinez is a 65-year-old female who is here for diagnostic EGD. The patient had previously had persistent nausea for several months earlier in the year and she had lost her appetite. She also had some weight loss. This completely resolved a couple of months ago and her weight stabilized. She does report intermittent episodes of reflux and globus sensation. She takes omeprazole OTC as needed. She does have a history of chronic constipation. The examination is deemed medically necessary for diagnostic EGD. The patient has been seen, interviewed and examined prior to the procedure by both myself and the anesthesia provider. [facility] Disclaimer: The information contained in this section may have been updated after the patient was seen, as this information can be updated by other users. Medical History Uterine prolapse Pelvic organ prolapse quantification stage 3 cystocele Postmenopausal atrophic vaginitis Urinary frequency Surgical History History of bilateral tubal ligation Family History Brother Cancer Social History Smoking Status: Never smoker alcohol intake: never substance use type: unknown current occupational status: employed Travel in the last 8 weeks?: None household members: significant other housing: house Have you lived/traveled outside US in past 30 days?: No Contact w/someone who lives/traveled outside US past 30 days?: No Exposure to someone with infectious disease in past 14 days?: No Do you have a fever (greater than 100.4 F or 38 C)?: No Have you tested positive for COVID-19?: No Exposed to someone with COVID-19 in past 14 days?: No Do you have a sore throat?: No Do you have a cough?: No Do you have any weakness?: No Are you experiencing any nausea/vomitting?: No Do you have any diarrhea?: No Are you experiencing any unusual bleeding?: No Do you have any muscle aches/pain?: No Do you have any abdominal pain?: No Are you experiencing loss of taste or smell?: No Other Medical History Have you received the Flu Vaccine for this season: No Have you received the Pneumonia Vaccine: No Review of Systems Review of Systems Review of systems (narrative): Negative *Cardiovascular Comments: Negative *Gastrointestinal Comments: Negative *Genitourinary Comments: Negative *Musculoskeletal Comments: Negative *Neurologic Comments: Negative Meds Home Medications and Allergies Home Medications ?Medication ?Instructions ?Recorded ?Confirmed ?Type biotin 5,000 mcg disintegrating 5,000 mcg PO DAILY Supplement 07/31/20 08/29/25 History tablet acetaminophen 325 mg capsule 325 mg PO QID PRN . 01/20/23 08/29/25 History (Tylenol) estradiol 0.01% (0.1 mg/gram) 1 g vaginal .Twice weekly #42.5 01/20/23 08/29/25 Rx vaginal cream grams ibuprofen 600 mg tablet 600 mg PO Q8H PRN . 01/20/23 08/29/25 History tramadol 50 mg tablet 50 mg PO DAILY PRN . 06/21/25 08/29/25 History New Prescriptions to Start Prescriptions: Allergies Allergy/AdvReac Type Severity Reaction Status Date / Time No Known Allergies Allergy Verified 08/28/25 13:26 Exam *Routine HEENT Exam Head: Present normocephalic Eye: Present EOMI and PERRL ENT: Present mucous membranes moist *Routine Neck Exam Neck: Present supple *Routine Respiratory Exam Respiratory: Present CTA bilaterally *Routine Cardiovascular Exam Cardiovascular: Present RRR *Routine Abdominal Exam Abdominal: Present soft and normoactive bowel sounds; Absent tenderness *Routine Rectal Exam Rectal:: deferred *Routine Genitalia Exam Genitalia:: deferred *Routine Extremities Exam Extremities: Absent cyanosis, clubbing or edema *Routine Skin Exam Skin: Present warm; Absent rash *Routine Neurological Exam Neurological: Present alert and oriented X3 Assessment and Plan *Assessment and plan (1) Globus sensation: Status: Acute Category: Medical Code(s): R09.A2 - Foreign body sensation, throat (2) Acid reflux: Status: Acute Category: Medical Code(s): K21.9 - Gastro-esophageal reflux disease without esophagitis (3) Nausea: Status: Acute Category: Medical Code(s): R11.0 - Nausea (4) Loss of appetite: Status: Acute Category: Medical Code(s): R63.0 - Anorexia Plan A/P: 1. Globus sensation/reflux is the preprocedural diagnosis. The patient was formerly having nausea, loss of appetite and weight loss. The patient will be anesthetized/sedated using MAC sedation. The patient has been seen and examined. Cardiac and lung assessment prior to the examination is stable. Proceed with planned diagnostic EGD.
[2025-08-28 13:30] VITALS: BMI 21.2
--- NOTE | 2025-08-29 07:07 | HMH.PROCNOTE ---
[facility] Procedure Note Date: 08/29/25 Time: 11:09 Procedure Note:: Upper Endoscopy Procedure Report: Esophagogastroduodenoscopy with cold biopsies and TTS balloon dilation Endoscopost: Wade Posadas II, MD Referring Physician: Pia MURDOCK Date of Procedure: August 29, 2025 Equipment: Olympus GIF-1100 standard upper endoscope Sedation: MAC sedation Indications: Mrs. Martinez is a 65-year-old female who is here for diagnostic EGD. The patient had previously had persistent nausea for several months earlier in the year and she had lost her appetite. She also had some weight loss. This completely resolved a couple of months ago and her weight stabilized. She does report intermittent episodes of reflux and globus sensation. She reports little belching but she does feel that belching would relieve her throat tightness and globus. She takes omeprazole OTC as needed. The patient does state over the last couple of years she has had more digestive issues. This is her first EGD. She does have a history of chronic constipation. The examination is deemed medically necessary for diagnostic EGD. Procedure: Prior to the procedure, a history and physical exam was performed, and patient's medications and allergies were reviewed. The risks, benefits and alternatives of the sedation and procedure were discussed with the patient. All questions were answered and informed consent was obtained. The patient was brought to the procedure room. Patient identification and proposed procedure were verified by the physician and the nurse. The patient was placed in a left lateral decubitus position and the scope was passed under direct vision. Throughout the procedure, the patient's blood pressure, pulse, and oxygen saturations were monitored continuously. The upper GI endoscopy was accomplished without difficulty. The patient tolerated the procedure well. Findings: The scope was passed directly into the upper esophagus and advanced to the third portion of the duodenum. The post bulbar duodenum, ampulla and duodenal bulb were normal with normal mucosa and conniventes. 2 cold biopsies were taken from the second portion of the duodenum for the disaccharidase assay. The scope was withdrawn through a normal duodenal bulb and pylorus into the stomach. There was bile reflux with mild linear reactive gastropathy of the antrum. The body and fundus of the stomach were normal. 2 cold biopsies were taken from the antrum. Upon retroflexion there was a small sliding 1 to 2 cm hiatal hernia. The scope was then withdrawn into the esophagus. There was no evidence of reflux esophagitis or Gordon's. There were no rings, strictures, corrugation, furrowing, webs or inlet patch. There were tertiary contractions and evidence of mild esophageal dysmotility. The entire esophagus was dilated to 60 Australian/20 mm with a TTS hydrostatic balloon. There was mild resistance at the cricopharyngeus. The remainder of the esophageal mucosa was normal. Impression: 1. Nonerosive GERD with mild esophageal dysmotility, cricopharyngeal spasm and very small sliding 1 to 2 cm hiatal hernia 2. Bile reflux with mild linear reactive gastropathy of antrum Plan: I will follow-up the biopsies and disaccharidase assay. The patient does primarily have gas driven bile reflux and we will discuss treatment options.
[2025-08-29 10:04] VITALS: BP 166/100; PULSE 97; RESP 16; TEMP 36.4; O2SAT 97
[2025-08-29] MEDS: LACTATED RINGERS 1000ML 1,000 ML 50 ML IV (10:10)
--- NOTE | 2025-08-29 10:31 | EXP.ANES.CKL ---
[facility] Disclaimer: The information contained in this section may have been updated after the patient was seen, as this information can be updated by other users. Medical History Uterine prolapse Pelvic organ prolapse quantification stage 3 cystocele Postmenopausal atrophic vaginitis Urinary frequency Surgical History History of bilateral tubal ligation Family History Brother Cancer Social History Smoking Status: Never smoker alcohol intake: never substance use type: unknown current occupational status: employed Travel in the last 8 weeks?: None household members: significant other housing: house Have you lived/traveled outside US in past 30 days?: No Contact w/someone who lives/traveled outside US past 30 days?: No Exposure to someone with infectious disease in past 14 days?: No Do you have a fever (greater than 100.4 F or 38 C)?: No Have you tested positive for COVID-19?: No Exposed to someone with COVID-19 in past 14 days?: No Do you have a sore throat?: No Do you have a cough?: No Do you have any weakness?: No Are you experiencing any nausea/vomitting?: No Do you have any diarrhea?: No Are you experiencing any unusual bleeding?: No Do you have any muscle aches/pain?: No Do you have any abdominal pain?: No Are you experiencing loss of taste or smell?: No [facility] Anesthesia Checklist Patient Identification Patient Identification: Arm Band and Verbal (Name & ) Structural Data Admitted From: Home Planned Operative Procedure/s: EGD Consent for Planned Operative Procedure(s) Verified: Yes Verified Documents: Surgical Consent and History and Physical NPO Status Verified Time NPO: 00:00 Additional verifications Anesthesia Reactions: No Previous Colonoscopy: Yes Airway Assessment Mallampati Score:: Class II C-Spine Mobility Assessed: Yes TMJ Mobility Assessed: Yes Dentition: Good Dentition Neurological Assessment Level of Consciousness: Awake, Alert and Appropriate Hx Seizures: No Numbness or tingling in extremities: No Anesthesia Plan Anesthesia Risk discussed: Yes Anesthesia Plan: Verified ASA Class: II Anesthesia Type: MAC
[2025-08-29 11:10] VITALS: BP 157/86; PULSE 86; RESP 18; TEMP 36.3; O2SAT 97
[2025-08-29 11:25] VITALS: BP 161/85; PULSE 74; RESP 18; TEMP 36.3; O2SAT 100
[2025-08-29 11:40] VITALS: BP 161/79; PULSE 75; RESP 18; TEMP 36.3; O2SAT 99
[2025-09-03 13:29] LABS: Interpretation Notes (.); Lactase 17.52 (>/= 14.0); Maltase 95.8 (>/= 110.0); Palatinase 5.45 (>/= 8.5); Reference Notes (.); Sucrase 14.02 (>/= 25.0)
== END 2025-08-29 11:45 | disposition home or self-care (01) ==
PROVIDERS: PCP Nurse Practitioner; Visit Provider Internal Medicine Gastroenterology
PROC: 0DJ08ZZ Inspection of Upper Intestinal Tract, Via Natural or Artificial Opening Endoscopic (ICD-10-PCS; CPT 43239; principal; 2025-08-29 11:00)
DX: K22.2 Esophageal obstruction (principal); K31.89 Other diseases of stomach and duodenum; K44.9 Diaphragmatic hernia without obstruction or gangrene; K21.9 Gastro-esophageal reflux disease without esophagitis; K59.09 Other constipation; K22.4 Dyskinesia of esophagus; Z79.899 Other long term (current) drug therapy; Z79.890 Hormone replacement therapy
CPT/HCPCS: 43239; 43249; 82657; C1726; J2003; J2704; J7120